=== PATIENT | male | born 1955 | race Two or more races ===

== ENCOUNTER 2024-01-13 06:13 | Outpatient (REF) | payer MEDICARE, MEDICAID, SELFPAY ==
--- NOTE | ~2024-01-13 | XR_ITS ---
EXAMINATION: XR CHEST CLINICAL INFORMATION: Chest pain. Essential hypertension. COMPARISON: None available. TECHNIQUE: 2 views of the chest were obtained. FINDINGS: Mild asymmetric elevation of the right hemidiaphragm. No focal consolidation. Mild central vascular congestion without overt edema. No pleural effusions or pneumothorax. The cardiomediastinal silhouette is within normal limits. No acute osseous abnormality. Degenerative changes of thoracic spine. XR/XR chest 2V IMPRESSION: No focal consolidation.
--- NOTE | 2024-01-13 06:28 | ECG_ITS ---
Test Reason : cp Blood Pressure : / mmHG Vent. Rate : 073 BPM Atrial Rate : 073 BPM P-R Int : 140 ms QRS Dur : 088 ms QT Int : 402 ms P-R-T Axes : -20 009 036 degrees QTc Int : 442 ms Normal sinus rhythm Normal ECG No previous ECGs available Referred By: Bryant Orlando Electronically Signed By:TORIN ARCHER
[2024-01-13 06:41] LABS: MANUAL DIFF FLAG NO
[2024-01-13 06:53] LABS: Basophils Percent Auto 0.5 % (0-2); Eosinophils Absolute Auto 0.2 X10*3/uL (0.0-0.4); Eosinophils Percent Auto 3.7 % (0-4); Hematocrit 44.2 % (42.0-52.0); Imm Gran Abs Auto 0.02 X10*3/uL (0.00-0.03); Imm Gran Pct Auto 0.3 % (0.0-0.4); Lymphocytes Absolute Auto 2.2 X10*3/uL (1.2-4.9); Lymphocytes Percent Auto 35.6 % (20-40); Mean Corpuscular HGB Conc 33.9 g/dl (31.0-36.0); Mean Corpuscular Hemoglobin 30.1 pg (27.0-33.0); Mean Corpuscular Volume 88.8 fL (80.0-98.0); Mean Platelet Volume 9.6 fL (9.4-12.4); Monocytes Absolute Auto 0.9 X10*3/uL (0.1-1.2); Monocytes Percent Auto 13.7 % (2-11); Neutrophils Absolute Auto 2.9 x10*3/uL (2.0-8.3); Neutrophils Percent Auto 46.2 % (45-73); Platelet Count 156 X10*3/uL (160-400); Red Blood Count 4.98 X10*6/uL (4.60-5.80); Red Cell Distribution Width 13.4 % (11.0-16.0); White Blood Count 6.3 X10*3/uL (4.8-10.8)
[2024-01-13 07:18] LABS: Alanine Aminotransferase 21 U/L (0-40); Albumin Level 4.2 g/dL (3.5-5.0); Alkaline Phosphatase 73 U/L (39-117); Anion Gap 15 (12-20); Aspartate Amino Transferase 27 U/L (5-37); Bilirubin Total 0.8 mg/dL (0.0-1.0); Blood Urea Nitrogen 12 mg/dL (9-16); Calcium 9.3 mg/dL (8.4-10.2); Carbon Dioxide 27 mmol/L (22-29); Chloride 101 mmol/L (96-108); Cholesterol 135 mg/dL (<200); Estimated Glomerular Filt Rate > 60; Glucose Fasting 115 mg/dL (60-99); HDL Cholesterol 37 mg/dL (>40); LDL Cholesterol Calculated 70 mg/dL (<100); Sodium 139 mmol/L (135-145); Total Protein 7.7 g/dL (6.5-8.0); Triglycerides 144 mg/dL (<150)
[2024-01-13 07:41] LABS: HBc Num1 3.26 S/CO (0.00-0.79); HBsAGNum1 0.34 S/CO (0.00-0.99); HIV AB/AG Nonreactive (Nonreactive); HIV Num 1 0.05 S/CO (0.00-0.99); Hepatitis A Antibody IgM 0.16 Index (0-0.79); Hepatitis B Surface Antigen Negative (Negative); ~HepC Num1 14.81 S/CO (0.00-0.79); ~Hepatitis A Antibody IgM Nonreactive (Nonreactive); ~Hepatitis B Surface Antibody REACTIVE (Nonreactive); ~Hepatitis C Antibody Reactive (Nonreactive)
[2024-01-13 08:24] LABS: HBc Num2 3.25 S/CO; HBc Num3 3.25 S/CO; Hepatitis B Core Antibody Reactive (Nonreactive)
[2024-01-13 08:36] LABS: Appearance Urine Clear; Color Urine Yellow; Glucose Urine UA Negative (Negative); Leukocyte Esterase Urine Moderate (2+) (Negative); Nitrite Urine Negative (Negative); Specific Gravity - Urine 1.015 (1.005-1.025); UMIC TRIGGER UA YES; Urine Blood Negative (Negative); Urine Ketones Negative (Negative); Urine Protein Negative (Neg-Trace)
[2024-01-13 08:58] LABS: Bacteria Urine None Seen (None Seen); Hyaline Casts Urine 0-2 /LPF (0-2); RBC Urine 0-2 /HPF (0-2); Squamous Epithelial Cell Urine 0-2 /HPF (0-2); WBC Urine 0-5 /HPF (0-5)
[2024-01-17 12:08] LABS: Alpha Fetoprotein 6.3 ng/mL (<6.1)
== END 2024-01-13 06:14 | disposition home or self-care (01) ==
LOC: HO.XRAY 06:13
PROVIDERS: PCP Internal Medicine Medical Oncology; Visit Provider Internal Medicine Medical Oncology
DX: I85.00 Esophageal varices without bleeding (principal); K74.60 Unspecified cirrhosis of liver; B19.20 Unspecified viral hepatitis C without hepatic coma; E78.00 Pure hypercholesterolemia, unspecified
CPT/HCPCS: 36415; 71046; 80053; 80061; 81001; 82105; 85025; 86704; 86706; 86709; 86803; 87340; 87389; 93005

== ENCOUNTER → 2024-01-13 06:28 | Outpatient (BNV) | payer MEDICARE, MEDICAID, SELFPAY | PROVIDERS: PCP Internal Medicine Medical Oncology; Visit Provider Internal Medicine | DX: R07.9 Chest pain, unspecified (principal) | CPT/HCPCS: 93010 ==

== ENCOUNTER 2024-05-11 07:05 | Outpatient (REF) | payer MEDICARE, MEDICAID, SELFPAY ==
[2024-05-11 07:24] LABS: MANUAL DIFF FLAG NO
[2024-05-11 07:32] LABS: Basophils Percent Auto 0.6 % (0-2); Eosinophils Absolute Auto 0.3 X10*3/uL (0.0-0.4); Eosinophils Percent Auto 4.7 % (0-4); Hematocrit 44.7 % (42.0-52.0); Hemoglobin 14.8 g/dl (14.0-18.0); Imm Gran Abs Auto 0.02 X10*3/uL (0.00-0.03); Imm Gran Pct Auto 0.3 % (0.0-0.4); Lymphocytes Percent Auto 28.6 % (20-40); Mean Corpuscular HGB Conc 33.1 g/dl (31.0-36.0); Mean Corpuscular Hemoglobin 29.4 pg (27.0-33.0); Mean Corpuscular Volume 88.7 fL (80.0-98.0); Mean Platelet Volume 9.8 fL (9.4-12.4); Monocytes Absolute Auto 0.8 X10*3/uL (0.1-1.2); Monocytes Percent Auto 11.8 % (2-11); Neutrophils Absolute Auto 3.7 x10*3/uL (2.0-8.3); Platelet Count 171 X10*3/uL (160-400); Red Blood Count 5.04 X10*6/uL (4.60-5.80); Red Cell Distribution Width 13.3 % (11.0-16.0); White Blood Count 6.9 X10*3/uL (4.8-10.8)
[2024-05-11 08:11] LABS: Alanine Aminotransferase 57 U/L (0-40); Albumin Level 4.1 g/dL (3.5-5.0); Alkaline Phosphatase 75 U/L (39-117); Anion Gap 9 (12-20); Aspartate Amino Transferase 45 U/L (5-37); Bilirubin Total 0.6 mg/dL (0.0-1.0); Blood Urea Nitrogen 15 mg/dL (9-16); Calcium 9.6 mg/dL (8.4-10.2); Carbon Dioxide 31 mmol/L (22-29); Chloride 103 mmol/L (96-108); Cholesterol 145 mg/dL (<200); Estimated Glomerular Filt Rate > 60; Glucose Fasting 117 mg/dL (60-99); HDL Cholesterol 30 mg/dL (>40); LDL Cholesterol Calculated 74 mg/dL (<100); Potassium 4.3 mmol/L (3.3-5.1); Sodium 139 mmol/L (135-145); Total Protein 7.7 g/dL (6.5-8.0); Triglycerides 209 mg/dL (<150)
== END 2024-05-11 07:06 | disposition home or self-care (01) ==
LOC: HO.LAB 07:05
PROVIDERS: PCP Internal Medicine Medical Oncology; Visit Provider Internal Medicine Medical Oncology
DX: I10 Essential (primary) hypertension (principal); E78.2 Mixed hyperlipidemia; E66.9 Obesity, unspecified; M75.02 Adhesive capsulitis of left shoulder
CPT/HCPCS: 36415; 80053; 80061; 85025

== ENCOUNTER 2024-06-07 15:01 | Outpatient (REF) | payer MEDICARE, MEDICAID, SELFPAY | END 2024-06-07 15:02 | disposition home or self-care (01) | LOC: HO.XRAY 15:01 | PROVIDERS: PCP Internal Medicine Medical Oncology; Visit Provider Internal Medicine Medical Oncology | DX: M54.50 Low back pain, unspecified (principal); M54.6 Pain in thoracic spine | CPT/HCPCS: 72072; 72110 ==

== ENCOUNTER → 2024-06-07 15:06 | Outpatient (BNV) | payer MEDICARE, MEDICAID, SELFPAY | PROVIDERS: PCP Internal Medicine Medical Oncology; Visit Provider Radiology Diagnostic Radiology | DX: M54.50 Low back pain, unspecified (principal) | CPT/HCPCS: 72072; 72110 ==

== ENCOUNTER → 2024-11-28 11:30 | Outpatient (REF) | payer MEDICARE, MEDICAID, SELFPAY ==
--- NOTE | ~2024-11-28 | XR_ITS ---
CLINICAL HISTORY: lumbar back pain 3 views lumbar spine Comparison: None Findings: No acute compression fracture of the 5 lumbar type vertebrae. Trace retrolisthesis of the L1-L2 and trace anterolisthesis at L5-S1. Degenerative disc changes with disc height losses endplate sclerosis by radiographs. Facet arthropathy is multifocal most pronounced in the mid and lower lumbar spine. L4 and L5 pars are partly obscured without definite lysis. Degenerative changes include partially imaged hips and partially imaged SI joints. Sacrum is mostly obscured. IMPRESSION: 1. Degenerative changes include multifocal facet arthropathy by radiographs. 2. No acute compression fracture of the 5 lumbar vertebrae. This document has been electronically signed by: Jaime Ramirez MD on 11/28/2024 20:12:50
--- NOTE | ~2024-11-28 | XR_ITS ---
CLINICAL HISTORY: bilat. hip pain 4 view, pelvis and bilateral hips Comparison: None Findings: Moderate osteoarthritis of the right hip. [id number] osteoarthritis of the left hip. Mild deformities of the imaged femurs appear old/chronic including flattening of the left femoral head. Portions of the pelvis obscured without definite acute displaced fracture. Moderate stool burden in the [id number]-[id number]. IMPRESSION: Osteoarthritis of the both hips, left worse than right. This document has been electronically signed by: Jaime Ramirez MD on 11/28/2024 20:15:18
--- NOTE | ~2024-11-28 | XR_ITS ---
CLINICAL HISTORY: PAIN 3 views sacrum and coccyx Comparison: X-rays of the lumbar spine from 11/28/2024. Findings Sacrococcygeal junction angulation appears old/chronic with sclerosis and not further characterize by radiographs. Degenerative changes include imaged SI joints of the imaged hips. Vascular calcifications are multifocal. IMPRESSION: Degenerative changes include imaged SI joints of the imaged hips. This document has been electronically signed by: Jaime Ramirez MD on 11/28/2024 20:13:38
--- NOTE | 2024-11-28 12:04 | ECG_ITS ---
Test Reason : cad Blood Pressure : */* mmHG Vent. Rate : 64 BPM Atrial Rate : 64 BPM P-R Int : 146 ms QRS Dur : 84 ms QT Int : 414 ms P-R-T Axes : -12 33 34 degrees QTcB Int : 427 ms Normal sinus rhythm Normal ECG When compared with ECG of 13-Jan-2024 06:30, No significant change was found Referred By: Bryant Orlando Electronically Signed By: MAGALIS SILVA MD
--- OUTSIDE RECORDS SUMMARY | 2024-11-28 13:53 | XMS_ITS ---
Author Organization Bryant Orlando III, MD Address [address] [place] [address] Care Team Providers Care Tire Curer Name Role Phone Bryant Orlando Primary Care Provider Allergies Allergen (clinical drug ingredient) Drug/Non Drug Allergy documented on EMR Reaction Allergy Type Onset Date Status No Known Drug Allergy Unknown Drug Allergy Active REASON FOR VISIT Follow up, Fly got in left eye. Eye is now red. Medications Medication SIG (Take, Route, Frequency, Duration) [...] 11/28/2024 Encounters Encounter Location Date Provider Diagnosis rByant Orlando III, MD [address] [place] [address] [place] [address] 11/28/2024 Bryant Orlando Coronary artery disease involving [place] coronary artery of [place] heart without angina pectoris I25.10 ; Chest pain R07.9 ; Lumbar back pain M54.50 ; Hip pain, right M25.551 and Pain in left hip M25.552 Assessments Encounter Date Diagnosis (ICD Code) Assessment Notes Treatment Notes Treatment Clinical Notes 11/28/2024 Coronary artery disease involving [place] coronary artery of [place] heart without angina pectoris (ICD-10 - I25.10) 11/28/2024 Chest pain (ICD-10 - R07.9) 11/28/2024 Lumbar back pain (ICD-10 - M54.50) 11/28/2024 Hip pain, right (ICD-10 - M25.551) 11/28/2024 Pain in left hip (ICD-10 - M25.552) Plan Of Treatment Medication Medication Name Sig [...] 4 Weeks, Reason: OV Provider Name:Bryant Orlando, 12/26/2024 10:45:00 AM, [address] [place] [address] [address], [place], [address], Provider Name:Bryant Orlando, 01/17/2025 02:30:00 PM, [address] [place] [address] [place] [place], [place], [address], Progress Notes * Romeo ELDRIDGEDOB:1955 (69 yo M)Acc No.[id number]:11/28/2024 Progress Notes Patient:?Romeo ELDRIDGE Provider:?Bryant Orlando MD :1955???Age:69 Y???Sex:Male Nhan e:11/28/2024 Address:[address] [place], [place] [address] Subjective: * Chief Complaints: * ???1. Follow up. 2. Fly got in left eye. Eye is now red.. * HPI: ???COVID-19 Screening:?2 days very red, subconjunct hem, ? valve leak, had card in [place],? bilat buttock pain with pos straight leg. ?Questions?Have you had any new onset fever, chills, cough, congestion, sore throat, shortness of breath, muscle aches??No * ROS:?General/Constitutional:?pain?only normal aches and pains.?Chills?denies.?Fatigue?admits.?Fever?denies.?ENT:?Decreased hearing?denies.?Respiratory:?Cough?denies.?Cardiovascular:?Chest pain with exertion?denies.?Dyspnea on exertion?denies.?Shortness of breath?denies.?Gastrointestinal:?Constipation?denies.?Decreased appetite?denies.?Diarrhea?denies.?Heartburn?denies.?Nausea?denies.?Rectal bleeding?denies.?Vomiting?denies.?Hematology:?bruising?denies.?petechiae?denies.?Swollen glands?none have been noted.?Genitourinary:?Frequent urination?denies.?Musculoskeletal:?Muscle aches?denies.?Painful joints?denies.?Sciatica?denies.?Weakness?denies.?Skin:?Itching?denies.?Rash?denies.?Skin lesion(s)?denies.?Neurologic:?Difficulty speaking?denies.?Dizziness?denies.?Headache?denies.?Low back pain?denies.?Psychiatric:?Depressed mood?denies.? * Medical History:?Edentulous, Constipation, Hyperlipidemia, Obesity, Adhesive capsulitis left shoulder 2022, Venous stasis lower extremities, Left second rib deformity, History of hepatitis C, History of unstable angina, Hearing loss, History of substance use disorder, Methadone maintenance, Esophageal varices, Colonoscopy 2022, Former smoker 2007, History of hypertension, {'Cholesterol': '145 (Normal)', 'Blood Sugar': '117 (Normal)', 'Kidney Function': 'Normal', 'Liver Function': 'Normal'}. * Surgical History:?Negative u pper endoscopy in [facility] 2022, Attempted colonoscopy, preparation inadequate 2022, No history . * Hospitalization/Major Diagno stic Procedure:?No history . * Family History:?Father: dece ased.?Mother: , liver disease, diagnosed with CVD, HTN.?Siblings: alive.?1 brother(s) , 1 sister(s) . .? His brother has coronary artery disease. He has a history of heroin addiction. He is not aware of any other family history of addiction or mental illness. * Social History:?Tobacco Use:?Tobacco Use/Smoking?Patient is a?former smoker ???He was born in [facility]. 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 He has no amish objection to blood transfusion. He has no children. He is not currently working. He is involved in a methadone maintenance program in [facility]. {'Living Situation': 'Lives with [place]', 'Work Status': 'Retired'}. * Medications:?Taking Gabapent in 300 MG Capsule 1 capsule Orally three times a day , Taking Lisinopril 2.5 MG Tablet 1 tablet [...] 1 capsule Orally Once a day , Medication List reviewed and reconciled with the patient * Allergies:?No Known Drug All ergy. Objective: * Vitals:?Ht: 62.5, Wt:207, BM I:37.25, BP:138/76, HR:69, Temp:97.0, Ht-cm: 158.75, Wt-k.89. * Examination: ???General Examination: ?GENERAL APPEARANCE:?pleasant, well nourished, well developed, in no acute distress, calm and relaxed.?HEAD:?atraumatic, normocephalic.?EYES:?eomi, perrla, anicteric, conjugate.?EARS:?normal.?NOSE:?septum intact.?ORAL CAVITY:?normal, unremarkable.?NECK/THYROID:?no jugular venous distention, no carotid bruit, thyroid normal.?LYMPH NODES:?no enlarged lymph nodes,spleen normal.?SKIN:?no suspicious lesions, anicteric.?HEART:?no clicks, gallops, murmurs, or rubs, regular rhythm, S1, S2 normal, no s3, or vascular bruits.?LUNGS:?clear to auscultation .?BREASTS:??no masses palpable bilaterally.?ABDOMEN:?bowel sounds normal, no ascites, no organomegaly, no mass.?RECTAL EXAM:?not examined.?MUSCULOSKELETAL:?extremities unremarkable, no clubbing, cyanosis or edema.?PERIPHERAL PULSES:?normal.?NEUROLOGIC:?alert and oriented, cranial nerves 2-12 grossly intact, deep tendon reflexes 2+ symmetrical, motor strength normal upper and lower extremities, sensory exam intact.?PSYCH:?alert, oriented.? Assessment: * Assessment: 1.?Coronary artery disease i nvolving [place] coronary artery of [place] heart without angina pectoris - I25.10???2.?Chest pain - R07.9???3.?Lumbar back pain - M54.50???4.?Hip pain, right - M25.551???5.?Pain in left hip - M25.552??? Plan: * Treatment: 2.?Chest pain?Imaging: Echocardiogram ?Imaging: Stress Test ?Imaging: ECG 12 lead EKG 3.?Lumbar back pain?Imaging: XR hips NIA min 3V ?Imaging: XR lumbar spine 2-3V ?Imaging: XR sacrum coccyx min 2V 4.?Hip pain, right?Imaging: XR hips NIA min 3V ?Imaging: XR lumbar spine 2-3V ?Imaging: XR sacrum coccyx min 2V 5.?Pain in left hip?Imaging: XR hips NIA min 3V ?Imaging: XR lumbar spine 2-3V ?Imaging: XR sacrum coccyx min 2V 6.?Others? Continue Gabapentin Capsule, 300 MG, 1 capsule, Orally, three times a day;?Continue Lisinopril Tablet, 2.5 MG, 1 tablet, Orally, Once a day;?Continue Aspirin 81 Tablet Delayed Release, 81 MG, 1 tablet, Orally, Once a day;?Continue Metoprolol Succinate ER Tablet Extended Release 24 Hour, 25 MG, 1 tablet, Orally, Once a day;?Continue dexAMETHasone Tablet, 2 MG, 1 tablet, Orally, twice a day;?Continue Omeprazole Capsule Delayed Release, 20 MG, 1 capsule, Orally, Once a day.?? * Preventive Medicine:? ??Counseling:?Care goal follow-up plan:?Counseling for abnormal BMI given?Yes ?Above Normal BMI Follow-up?Dietary management education, guidance, and counseling, Dietary needs education, Exercise promotion: strength training, Exercise promotion: stretching, Feeding regime, Giving encouragement to exercise, Lifestyle education regarding diet, Nutrition / feeding management, Nutrition therapy, Prescribed activity/exercise education, Prescribed diet education, Prescribed dietary intake, Special diet education, Weight monitoring , Intervention, Order not done: Medical or Other reason not done * Follow Up:?4 Weeks (Reason: OV) * Images: * The named appointment provid er may or may not be the originator of this progress note, and it is not deemed complete until electronically signed by the appointment provider. Sign off status: Pending * Provider:?Bryant Orlando MD Date:?11/19 Generated for Sid moser/Sonal/eTransmitting on:?11/28/2024 01:53 PM EDT History and Physical Notes * [...]
== END ==
LOC: HO.CARD 11:30
PROVIDERS: PCP Internal Medicine Medical Oncology; Visit Provider Internal Medicine Medical Oncology
DX: I25.10 Atherosclerotic heart disease of native coronary artery without angina pectoris (principal); M54.50 Low back pain, unspecified; M25.551 Pain in right hip; M25.552 Pain in left hip; R07.9 Chest pain, unspecified
CPT/HCPCS: 72100; 72220; 73522; 93005

== ENCOUNTER → 2024-11-28 11:45 | Outpatient (BNV) | payer MEDICARE, MEDICAID, SELFPAY | PROVIDERS: PCP Internal Medicine Medical Oncology; Visit Provider Radiology Neuroradiology | DX: M16.0 Bilateral primary osteoarthritis of hip (principal); M51.360 Other intervertebral disc degeneration, lumbar region with discogenic back pain only | CPT/HCPCS: 72100; 72220; 73522 ==

== ENCOUNTER → 2024-11-28 12:04 | Outpatient (BNV) | payer MEDICARE, MEDICAID, SELFPAY | PROVIDERS: PCP Internal Medicine Medical Oncology; Visit Provider Internal Medicine Cardiovascular Disease | DX: I25.10 Atherosclerotic heart disease of native coronary artery without angina pectoris (principal) | CPT/HCPCS: 93010 ==

== ENCOUNTER → 2024-12-29 14:20 | Outpatient (REF) | payer MEDICARE, MEDICAID, SELFPAY ==
--- OUTSIDE RECORDS SUMMARY | 2024-11-28 07:00 | XMS_ITS ---
Author Organization Bryant Orlando III, MD Address [address] [facility] [place] [address] Care Team Providers Care Electric Meter Tester Shop Name Role Phone Bryant Orlando Primary Care Provider Allergies Allergen (clinical drug ingredient) Drug/Non Drug Allergy documented on EMR Reaction Allergy Type Onset Date Status No Known Drug Allergy Unknown Drug Allergy Active Results Component Value Reference Range Notes XR hips NIA min 3V (Not yet reviewed by provider) Interpretation: Performing Lab: Notes/Report: [address] [address] XRay Report Signed Patient: Romeo Eldridge MR#: [id number] : 1955 Acct:[id number] Age/Sex: 69 / M ADM Date: 11/28/24 Loc: HO.CARD Attending Dr: Bryant Orlando MD Ordering Physician: Bryant Orlando MD Date of Service: 11/28/24 Procedure(s): XR hips NIA min 3V Accession Number(s): [id number] cc: Bryant Orlando MD CLINICAL HISTORY: bilat. hip pain 4 view, pelvis and bilateral hips Comparison: None Findings: Moderate osteoarthritis of the right hip. Ispytzcz-xg-sjdbpo osteoarthritis of the left hip. Mild deformities of the imaged femurs appear old/chronic including flattening of the left femoral head. Portions of the pelvis obscured without definite acute displaced fracture. Moderate stool burden in the lnlbk-ab-fqbi. IMPRESSION: Osteoarthritis of the both hips, left worse than right. This document has been electronically signed by: Jaime Ramirez MD on 11/28/2024 20:15:18 Dictated By: Jaime Ramirez MD Signed By: <Electronically signed by Jaime Ramirez MD in OV> 11/28/242014 DD/ 14 TD/TT: 11/28/242014 Animal Care Provider: [address] [address] XRay Report Signed Patient: Romeo Eldridge R#: [id number] : 1955 Acct:[id number] Age/Sex: 69 / M ADM Date: 11/28/24 Loc: HO.CARD Attending Dr: Bryant Orlando MD Ordering Physician: Bryant Orlando MD Date of Service: 11/28/24 Procedure(s): XR hip s NIA min 3V Accession Number(s): [id number] cc: Bryant Orlando MD CLINICAL HISTORY: bi lat. hip pain 4 view, pelvis and b ilateral hips Comparison: None Findings: Moderate osteoarthri tis of the right hip. Bqlsmrsl-oh-bjnjcq osteoarthritis of th e left hip. Mild deformities of the imaged femurs appear old/chronic i ncluding flattening of the left femoral head. Portions of the pelvis obscur ed without definite acute displaced fracture. Moderate stool burde n in the nxfmy-df-ofgg. IMPRESSION: Osteoarthritis of th e both hips, left worse than right. This document has be en electronically signed by: Jaime Ramirez MD on 11/28/2024 20:15:18 Dictated By: Jaime Ramirez MD Signed By: <Electron ically signed by Jaime Ramirez MD in OV> 11/28/242014 DD/ 14 TD/TT: 11/28/242014 Animal Care Provider: XR lumbar spine 2-3V (Not ye t reviewed by provider) Interpretation: Performing Lab: Notes/Report: [address] [address] XRay Report Signed Patient: Romeo Eldridge MR#: [id number] : 1955 Acct:[id number] Age/Sex: 69 / M ADM Date: 11/28/24 Loc: HO.CARD Attending Dr: Bryant Orlando MD Ordering Physician: Bryant Orlando MD Date of Service: 11/28/24 Procedure(s): XR lumbar spine 2-3V Accession Number(s): [id number] cc: Bryant Orlando MD CLINICAL HISTORY: lumbar [...] in OV> 11/28/242012 DD/ 11 TD/TT: 11/28/242011 Animal Care Provider: [place] [address] XRay Report Signed Patient: Romeo Eldridge MR#: [id number] : 1955 Acct:[id number] Age/Sex: 69 / M ADM Date: 11/28/24 Loc: HO.CARD Attending Dr: Bryant Orlando MD Ordering Physician: Bryant Orlando MD Date of Service: 11/28/24 Procedure(s): XR lum bar spine 2-3V Accession Number(s): [id number] cc: Bryant Orlando MD CLINICAL HISTORY: joyce [...] Dictated By: Jaime Ramirez MD Signed By: <Electro nically signed by Jaime Ramirez MD in OV> 11/28/242012 DD/ 11 TD/TT: 11/28/242011 Animal Care Provider: XR sacrum coccyx min 2V (Not yet reviewed by provider) Interpretation: Performing Lab: Notes/Report: [address] [address] XRay Report Signed Patient: Romeo Eldridge MR#: [id number] : 1955 Acct:[id number] Age/Sex: 69 / M ADM Date: 11/28/24 Loc: [place] Attending Dr: Bryant Orlando MD Ordering Physician: Bryant Orlando MD Date of Service: 11/28/24 Procedure(s): XR sacrum coccyx min 2V Accession Number(s): [id number] cc: Bryant Orlando MD CLINICAL HISTORY: PAIN [...] in OV> 11/28/242013 DD/ 12 TD/TT: 11/28/242012 Animal Care Provider: [address] [address] XRay Report Signed Patient: Romeo Eldridge R#: [id number] : 1955 Acct:[id number] Age/Sex: 69 / M ADM Date: 11/28/24 Loc: [place] Attending Dr: Bryant Orlando MD Ordering Physician: Bryant Orlando MD Date of Service: 11/28/24 Procedure(s): XR sac rum coccyx min 2V Accession Number(s): [id number] cc: Bryant Orlando MD CLINICAL HISTORY: PAIN [...] in OV> 11/28/242013 DD/ 12 TD/TT: 11/28/242012 Animal Care Provider: REASON FOR VISIT My left eye is [...] Answer Notes Patient is a former smoker Problems Problem Type SNOMED Code ICD Code Onset Dates Problem Status W/U Status Risk Notes Problem [id number] Subconjunctival hemorrhage of left eye (H11.32) Active confirmed This is completely resolved Vital Signs Temperature 97.0 degrees Fahrenheit 11/29/19 25 Blood pressure systolic 138 mm Hg 11/29/19 25 Blood pressure diastolic 76 mm Hg 025 Heart Rate 69 /min 11/28/2024 Height 62.5 in 11/28/2024 Weight 207 lbs 11/28/2024 BMI 37.25 kg/m2 11/28/2024 Encounters Encounter Location Date Provider Diagnosis Bryant Orlando III, MD [address] [place] [address] DR ABREU, DAVID [address] 11/28/2024 Bryant Orlando Subconjunctival hemorrhage of left eye H11.32 ; Essential hypertension I10 ; Hearing loss, bilateral H91.93 ; Edentulous K08.109 ; Mixed hyperlipidemia E78.2 ; Obesity (BMI 30-39.9) E66.9 ; Venous stasis I87.8 ; 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 11/28/2024 Coronary artery disease involving [place] coronary artery of [place] heart without angina pectoris (ICD-10 - I25.10) [...] Up: 4 Weeks, Reason: OV Provider Name:Bryant Orlando, 01/17/2025 02:30:00 PM, [address] [place] [address] DR [facility] [place], [place], [address], Progress Notes * Loreto ELDRIDGE:1955 (69 yo M)Acc No.[id number]:11/28/2024 Progress Notes Patient: Romeo MEJIA Provider: Neida Orlando MD :1955 A ge:69 Y S ex:Male Date:11/28/2024 Address:[address] [place], [place] [address]Nik[id number] Subjective: * Chief Complaints: * M y [...] he had a leaky valve show a circulator in [place]. An echocardiogram will be done to evaluate [...] Surgical History: N egative upper endoscopy in [facility] ttempted colonoscopy, preparation inadequate 2022No history [...] T obacco Use/Smoking P pierre is a [facility] smoker H e was born in [facility]. 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 He has no scientologist objection to blood transfusion. He has no children. He is not currently working. 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 {'Living Situation': 'Lives with [place]', 'Work Status': 'Retired'}. * Medications: T akingGabapentin [...] 9 . C oronary artery disease involving [place] coronary artery of [place] heart without angina pectoris - I25.10 N [...] Orlando MD Date: 0 11/28/2024 Generated for Sid moser/Sonal/eTransmitting on: 0 12/29/2024 02:24 PM EDT History and Physical Notes * HPI [...]
--- NOTE | 2024-12-29 14:43 | CA_ITS ---
Transthoracic Echocardiogram Patient (Last, First, Middle): Romeo Eldridge, Gender: Male Date of : 1955 Age: 69 Procedure Date: 12/29/2024 Procedure Type: Transthoracic Echocardiogram Location: OP Height: 162. cm Weight: 94.8 kg BSA: 1.99 m2 Heart Rate: 82 bpm BP: 172 / 90 mmHg Sandblasting Supervisor: YAA Referring MD: Bryant Orlando MD Symptoms: CAD , CHEST PAIN Study Quality: Adequate w/Contrast ECG Rhythm: Sinus Conclusions: - Normal left ventricular size and systolic function. There is mildly increased left ventricular wall thickness. The visually estimated ejection fraction is between 60-65%. - E/E prime ratio is between 8 and 15 consistent with indeterminate filling pressures. - The mid anteroseptal segment is hypokinetic. - Normal right ventricular cavity size and systolic function. Findings Procedure Information Contrast agent, definity, is being given per protocol without apparent complications. Left Ventricle Normal left ventricular size and systolic function. There is mildly increased left ventricular wall thickness. The visually estimated ejection fraction is between 60-65%. There is evidence of regional wall motion abnormalities. Abnormal diastolic function is noted. Spectral Doppler is indicative of an impaired relaxation filling pattern. E/E prime ratio is between 8 and 15 consistent with indeterminate filling pressures. Wall Motion Rest Echo Findings The mid anteroseptal segment is hypokinetic. Right Ventricle Normal right ventricular cavity size and systolic function. Atria Both atria are normal in size. Aortic Valve Normal aortic valve structure and function. There is no aortic valve stenosis. There is no aortic valve regurgitation. Mitral Valve The mitral valve appears normal. There is no mitral valve regurgitation. There is no mitral valve stenosis. Pulmonic Valve The pulmonic valve is likely normal. Tricuspid Valve Normal tricuspid valve structure and function. There is no tricuspid valve regurgitation. Tricuspid regurgitation envelope is inadequate for calculation of right ventricular systolic pressure. Normal right atrial pressure. Great Vessels All visible segments of the aorta are normal in size. The visualized portions of the pulmonary artery and branches are normal. Venous The inferior vena cava is normal in size and collapses greater than 50% with inspiration. Pericardium/Pleural There is no evidence of pericardial effusion. Prior Study Comparison No prior study available for comparison. Measurements 2D Linear Measurements IVSd: 1.08 0.6-0.9/0.6-1.0 cm LVIDd: 3.99 3.9-5.3/4.2-5.9 cm LVIDd Index: 2.01 2.4-3.2/2.2-3.1 cm/m2 LVIDs: 1.90 2.0-3.6 cm LVPWd: 1.21 0.7-1.1 cm LA Diam: 3.50 2.7-3.8/3.0-4.0 cm LAIDs Index: 1.76 1.5-2.3 cm/m2 LV Mass: 191.52 67-162/88-224 g LV Mass Index: 96.24 43-95/49-115 g/m2 LVOT Diam: 1.90 3.0+(-)1.3 cm 2D Systolic Function EF 4C: 65.30 >55% EF 2C: 78.20 >55% EF BiP: 70.70 >55% Mitral Valve MV Pk E: 0.75 MV PK A: 1.00 MV Decel Time: 294.00 E/A: 0.80 E'Lateral: 6.85 E'Medial: 5.55 E/E' Med: 13.50 E/E' Lat: 10.90 PHT: 86.00 MVA PHT: 2.56 Decel [place]: 2.55 Aortic Valve AoV Pk Jamal: 1.45 AoV Mn Jamal: 1.08 AoV VTI: 0.29 AoV Pk Grad: 8.00 Aov Mn Grad: 5.00 LISA Cont.VTI: 2.34 LVOT LVOT Pk Jamal: 1.27 LVOT Mn Jamal: 0.90 LVOT VTI: 0.24 LVOT Pk Grad: 6.00 LVOT Mn Grad: 4.00 LVOT Diam: 1.90 LVOT Area: 2.84 Diastolic Function MV Pk E: 0.75 MV Pk A: 1.00 E/A: 0.80 E'Medial: 5.55 E/E' Med: 13.50 E' Laterial: 6.85 E/E' Lat: 10.90 Right Ventricle TAPSE (mm): 24.40 TVS' Jamal: 13.10 Great Vessels Aorta Sinus of Valsalva: 3.30 2.0-3.5 cm Ao Asc: 3.30 2.1-3.4 cm Ao Arch: 3.10 Pulmonary Valve PV Pk Jamal: 1.13 Peak PV Grad: 5.00 Updated in Other Vendor System with Status of Final Bashir Patel MD electronically signed on 12/31/2024 9:14:16 PM with status of Final
== END ==
LOC: HO.CARD 14:20
PROVIDERS: PCP Internal Medicine Medical Oncology; Visit Provider Internal Medicine Medical Oncology
DX: I25.10 Atherosclerotic heart disease of native coronary artery without angina pectoris (principal); R07.9 Chest pain, unspecified
CPT/HCPCS: 93306; Q9957

== ENCOUNTER → 2024-12-29 14:43 | Outpatient (BNV) | payer MEDICARE, MEDICAID, SELFPAY | PROVIDERS: PCP Internal Medicine Medical Oncology; Visit Provider Internal Medicine Cardiovascular Disease | DX: I51.89 Other ill-defined heart diseases (principal) | CPT/HCPCS: 93306 ==

== ENCOUNTER 2025-01-11 07:51 | Outpatient (REF) | payer MEDICARE, MEDICAID, SELFPAY ==
--- OUTSIDE RECORDS SUMMARY | 2024-11-28 07:00 | XMS_ITS ---
Author Organization Bryant Orlando III, MD Address [address] [facility] [place] [address] Care Team Providers Care Licensed Physical Therapy Assistant Name Role Phone Bryant Orlando Primary Care Provider Allergies Allergen (clinical drug ingredient) Drug/Non Drug Allergy documented on EMR Reaction Allergy Type Onset Date Status No Known Drug Allergy Unknown Drug Allergy Active Results Component Value Reference Range Notes XR hips NIA min 3V (Not yet reviewed by provider) Interpretation: Performing Lab: Notes/Report: [address] [address] XRay Report Signed Patient: Romeo Eldridge MR#: [id number] : 1955 Acct:[id number] Age/Sex: 69 / M ADM Date: 11/28/24 Loc: HO.CARD Attending Dr: Bryant Orlando MD Ordering Physician: Bryant Orlando MD Date of Service: 11/28/24 Procedure(s): XR hips NIA min 3V Accession Number(s): [id number] cc: Bryant Orlando MD CLINICAL HISTORY: bilat. hip pain 4 view, pelvis and bilateral hips Comparison: None Findings: Moderate osteoarthritis of the right hip. Hejwddzz-by-epdige osteoarthritis of the left hip. Mild deformities of the imaged femurs appear old/chronic including flattening of the left femoral head. Portions of the pelvis obscured without definite acute displaced fracture. Moderate stool burden in the geghw-nx-mxsa. IMPRESSION: Osteoarthritis of the both hips, left worse than right. This document has been electronically signed by: Jaime Ramirez MD on 11/28/2024 20:15:18 Dictated By: Jaime Ramirez MD Signed By: <Electronically signed by Jaime Ramirez MD in OV> 11/28/242014 DD/ 14 TD/TT: 11/28/242014 Direct Service Provider: [address] [address] XRay Report Signed Patient: Romeo Eldridge R#: [id number] : 1955 Acct:[id number] Age/Sex: 69 / M ADM Date: 11/28/24 Loc: HO.CARD Attending Dr: Bryant Orlando MD Ordering Physician: Bryant Orlando MD Date of Service: 11/28/24 Procedure(s): XR hip s NIA min 3V Accession Number(s): [id number] cc: Bryant Orlando MD CLINICAL HISTORY: bi lat. hip pain 4 view, pelvis and b ilateral hips Comparison: None Findings: Moderate osteoarthri tis of the right hip. Idwzhmzs-yv-rpiubw osteoarthritis of th e left hip. Mild deformities of the imaged femurs appear old/chronic i ncluding flattening of the left femoral head. Portions of the pelvis obscur ed without definite acute displaced fracture. Moderate stool burde n in the gywpa-ho-wrng. IMPRESSION: Osteoarthritis of th e both hips, left worse than right. This document has be en electronically signed by: Jaime Ramirez MD on 11/28/2024 20:15:18 Dictated By: Jaime Ramirez MD Signed By: <Electron ically signed by Jaime Ramirez MD in OV> 11/28/242014 DD/ 14 TD/TT: 11/28/242014 Direct Service Provider: XR lumbar spine 2-3V (Not ye t reviewed by provider) Interpretation: Performing Lab: Notes/Report: [address] [address] XRay Report Signed Patient: Romeo Eldridge MR#: [id number] : 1955 Acct:[id number] Age/Sex: 69 / M ADM Date: 11/28/24 Loc: HO.CARD Attending Dr: Bryant Orlando MD Ordering Physician: Bryant Orlando MD Date of Service: 11/28/24 Procedure(s): XR lumbar spine 2-3V Accession Number(s): [id number] cc: Bryant Orlando MD CLINICAL HISTORY: lumbar [...] in OV> 11/28/242012 DD/ 11 TD/TT: 11/28/242011 Direct Service Provider: [place] [address] XRay Report Signed Patient: Romeo Eldridge MR#: [id number] : 1955 Acct:[id number] Age/Sex: 69 / M ADM Date: 11/28/24 Loc: HO.CARD Attending Dr: Bryant Orlando MD Ordering Physician: Bryant Orlando MD Date of Service: 11/28/24 Procedure(s): XR lum bar spine 2-3V Accession Number(s): [id number] cc: Bryant Orlando MD CLINICAL HISTORY: joyce [...] in OV> 11/28/242012 DD/ 11 TD/TT: 11/28/242011 Direct Service Provider: XR sacrum coccyx min 2V (Not yet reviewed by provider) Interpretation: Performing Lab: Notes/Report: [address] [address] XRay Report Signed Patient: Romeo Eldridge MR#: [id number] : 1955 Acct:[id number] Age/Sex: 69 / M ADM Date: 11/28/24 Loc: [place] Attending Dr: Bryant Orlando MD Ordering Physician: Bryant Orlando MD Date of Service: 11/28/24 Procedure(s): XR sacrum coccyx min 2V Accession Number(s): [id number] cc: Bryant Orlando MD CLINICAL HISTORY: PAIN [...] Ramirez MD on 11/28/2024 20:13:38 Dictated By: aJime Ramirez MD Signed By: <Electronically signed by Jaime Ramirez MD in OV> 11/28/242013 DD/ 12 TD/TT: 11/28/242012 Direct Service Provider: [address] [address] XRay Report Signed Patient: Romeo Eldridge R#: [id number] : 1955 Acct:[id number] Age/Sex: 69 / M ADM Date: 11/28/24 Loc: [place] Attending Dr: Bryant Orlando MD Ordering Physician: Bryant Orlando MD Date of Service: 11/28/24 Procedure(s): XR sac rum coccyx min 2V Accession Number(s): [id number] cc: Bryant Orlando MD CLINICAL HISTORY: PAIN [...] in OV> 11/28/242013 DD/ 12 TD/TT: 11/28/242012 Direct Service Provider: REASON FOR VISIT My left eye [...] Problem Status W/U Status Risk Notes Problem [id number] Subconjunctival hemorrhage of left eye (H11.32) Active confirmed This is completely resolved Vital Signs Temperature 97.0 degrees Fahrenheit 11/29/19 25 Blood pressure systolic 138 mm Hg 11/29/19 25 Blood pressure diastolic 76 mm Hg 025 Heart Rate 69 /min 11/28/2024 Height 62.5 in 11/28/2024 Weight 207 lbs 11/28/2024 BMI 37.25 kg/m2 11/28/2024 Encounters Encounter Location Date Provider Diagnosis Bryant Orlando III, MD [address] [place] [address] DR ABREU, DAVID [address] 11/28/2024 Bryant Orlando Subconjunctival hemorrhage of left eye H11.32 ; Essential hypertension I10 ; Hearing loss, bilateral H91.93 ; Edentulous K08.109 ; Mixed hyperlipidemia E78.2 ; Obesity (BMI 30-39.9) E66.9 ; Venous stasis I87.8 ; 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 An echocardiogram will be done to evaluate [...] Surgical History: N egative upper endoscopy in [facility] ttempted colonoscopy, preparation inadequate 2022No history * [...] obacco Use/Smoking P pierre is a [facility] smoker H e was born in [facility]. 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 He has no yarsani objection to blood transfusion. He has no children. He is not currently working. 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 {'Living Situation': 'Lives with [place]', 'Work Status': 'Retired'}. * Medications: T akingGabapentin [...] 9 . C oronary artery disease involving [place] coronary artery of [place] heart without angina pectoris - I25.10 N [...] 0 11/28/2024 Generated for Terelli shanti/Sonal/eTransmitting on: 0 01/11/2025 07:52 AM EDT History and Physical Notes * [...]
--- NOTE | ~2025-01-11 | MR_ITS ---
EXAMINATION: MR LUMBAR SPINE WITHOUT CONTRAST CLINICAL INFORMATION: Low back pain. COMPARISON: Correlated to x-ray dated November 28, 2024. TECHNIQUE: MRI of the lumbar spine was obtained using routine sequences without contrast. FINDINGS: Last rib-bearing vertebra labeled T12. No bone marrow STIR signal abnormality. Multilevel marginal osteophyte formation, disc desiccation and decreased intervertebral disc height from T10-11 to L5-S1. Multilevel Schmorl nodes. 1 mm retrolisthesis L1-2. Conus medullaris ends at pedicle of L1 with normal signal. Intrinsic hyperintense T1 bone marrow lesion at L1, T11 and T10 likely intraosseous hemangiomata. Hyperintense T1 bone marrow signal involving the sacrum and posterior iliac bone, bilaterally. T12-L1: No disc herniation. No neuroforamina stenosis. L1-2: Broad-based disc bulging. Facet joint hypertrophy. No central spinal canal stenosis. Bilateral neuroforamina narrowing. L2-3: Broad-based disc bulging. No central spinal canal stenosis. Bilateral neuroforamina narrowing. L3-4: Broad-based disc bulging. No central spinal canal stenosis. Bilateral neuroforamina narrowing. L4-5: Broad-based disc bulging. Facet joint and ligamentum flavum hypertrophy. No central spinal canal stenosis. Bilateral neuroforamina narrowing. L5-S1: Broad-based disc bulging. Prominent epidural fat in a circumferential fashion reducing the AP diameter of the thecal sac. Facet joint hypertrophy. Bilateral neuroforamina stenosis, left greater than the right encroaching the exiting nerve roots. No prevertebral compartment hematoma, mass or fluid collection. MR/MR lumbar spine wo con IMPRESSION: Multilevel spondylosis resulting in bilateral neuroforamina narrowing/stenosis pronounced at L5-S1 and to a lesser extent from L2-3 to L4-5 levels encroaching the exiting nerve roots. Epidural lipomatosis, L5-S1 resulting in central spinal canal stenosis. Grade 1 retrolisthesis on a degenerative basis, L1-2. Fatty bone marrow, sacrum. Electronically signed by: Greg Byrd MD 01/11/2025 09:03 AM EDT
== END 2025-01-11 07:52 | disposition home or self-care (01) ==
LOC: HO.MRI 07:51
PROVIDERS: PCP Internal Medicine Medical Oncology; Visit Provider Internal Medicine Medical Oncology
DX: M54.50 Low back pain, unspecified (principal)
CPT/HCPCS: 72148

== ENCOUNTER → 2025-01-11 07:55 | Outpatient (BNV) | payer MEDICARE, MEDICAID, SELFPAY | PROVIDERS: PCP Internal Medicine Medical Oncology; Visit Provider Radiology Diagnostic Radiology | DX: M47.896 Other spondylosis, lumbar region (principal) | CPT/HCPCS: 72148 ==

== ENCOUNTER → 2025-03-13 09:17 | Outpatient (REF) | payer MEDICARE, MEDICAID, SELFPAY ==
--- OUTSIDE RECORDS SUMMARY | 2024-12-26 12:45 | XMS_ITS ---
Author Organization Bryant Orlando III, MD Address [address] [place] [address] Care Team Providers Care Ladle Pourer Name Role Phone Dr. Bryant Orlando III Primary Care Provider [phone] REASON FOR VISIT Follow up Social History Sex Assigned At : Social History Observation Description Sex Assigned At Male Encounters Encounter Location Date Provider Diagnosis Bryant Orlando III, MD [address] [place] [address] [place] [address] 12/26/2024 Bryant Orlando Plan Of Treatment Next Appt Details Provider Name:Bryant Orlando , 03/27/2025 02:30:00 PM, [address] [place] [address] [place], [address], Provider Name:Bryant Orlando , 01/21/2026 02:30:00 PM, [address] [place] [address] [place], [address], Progress Notes * Romeo ELDRIDGEDOB:1955 (69 yo M)Acc No.[id number]:12/26/2024 Progress Notes Patient: Romeo MEJIA Provider: Neida Orlando MD :1955 A ge:69 Y S ex:Male Date:12/26/2024 Address: [address] [place] Subjective: * Chief Complaints: * 1 . [...] MD Date: 0 12/26/2024 Generated for Sid moser/Sonal/Fabiitting on: 0 03/13/2025 10:54 AM EDT
--- OUTSIDE RECORDS SUMMARY | 2024-12-28 07:45 | XMS_ITS ---
Author Organization Bryant Orlando III, MD Address [address] [place] [address] Care Team Providers Care Press Secretary Name Role Phone Dr. Bryant Orlando III Primary Care Provider [phone] Allergies Allergen (clinical drug ingredient) Drug/Non Drug Allergy documented on EMR Reaction Allergy Type Onset Date Status No Known Drug Allergy Unknown Drug Allergy Active Reason For Referral Reason lumbar back pain e valuate and treatment Diagnosis 1 Lumbar back pain (M5 4.50) Referral Organization Bryant Orlando III, MD Referring Provider First Name Bryant Referring Provider Last Name Johanny Referring Provider Speciality Internal M edicine Referred Provider Spine and Sp [facility] Referred Provider Specialty Physical Med icine General Notes Autumn Bolden [facility] 12/29 01:36:49 PM >ref/demo/progress note /x rays faxed to [facility], Autumn Bolden [facility] 01/16/2025 01:52:31 PM >Copy of MRI faxed to [facility] Referral Priority Routine Referral Appointment Date 02/26/2025 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, 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, Low back muscle spasm, [...] Date Provider Diagnosis Bryant Orlando III, MD [address] [place] [address] [place] [address] 12/28/2024 Bryant Orlando Lumbar back pain M54 .50 ; Coronary artery disease involving [place] coronary artery of [place] heart without angina pectoris I25.10 ; Adhesive capsulitis of left shoulder M75.02 ; Obesity (BMI 30-39.9) E66.9 ; Former smoker Z87.891 and Subconjunctival hemorrhage of left eye H11.32 Assessments Encounter Date Diagnosis (ICD Code) Assessment Notes T reatment Notes Treatment Clinical Notes 12/28/2024 Lumbar back pain (ICD-10 - M54.50) 12/28/2024 Coronary artery disease involving [place] coronary artery of pe[place] heart without angina pectoris (ICD-10 - I25.10) [...] lumbar b ack pain evaluate and treatment, [facility] Next Appt Details Follow Up: as scheduled for annual exam, Reason: annual exam Provider Name:Bryant Orlando , 03/27/2025 02:30:00 PM, [address] [place] [address] [address], [place], [address], Provider Name:Bryant Orlando , 01/21/2026 02:30:00 PM, [address] [place] [address] [address], [place], [phone], Progress Notes * Romeo ELDRIDGEDOB:1955 (69 yo M)Acc No.[id number]:12/28/2024 Progress Notes Patient: Romeo MEJIA Provider: Neida Orlando MD :1955 A ge:69 Y S ex:Male Date:12/28/2024 Address:[address] [place], [place] [id number] Subjective: * Chief Complaints: * R equest [...] cyclobenzaprine. 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 Questions H ave you had any new [...] Surgical History: N egative upper endoscopy in [facility] ttempted colonoscopy, preparation inadequate 2022No history * [...] ormer smoker H e was born in [facility]. 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 He has no judaism objection to blood transfusion. He has no children. He is not currently working. 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 {'Living Situation': 'Lives with [place]', 'Work Status': 'Retired'}. * Medications: T akingGabapentin [...] Assessment: 1. C oronary artery disease involving [place] coronary artery of pe[place] heart without angina pectoris - I25.10 (Primary) [...] MD Date: 0 12/28/2024 Generated for Sid moser/Faxing/eTransmitting on: 0 03/13/2025 10:55 AM EDT History and Physical Notes * [...] kaushik 12/28/2024 Bryant [facility] back pain evaluate and treatment
--- OUTSIDE RECORDS SUMMARY | 2025-01-17 10:30 | XMS_ITS ---
Author Organization Bryant Orlando III, MD Address [address] [place] [address] Care Team Providers Care Technical Staff Engineer Name Role Phone Dr. Bryant Orlando [...] Internal M edicine Referred Provider Thai Mistry [facility] er, Cardiology Referred Provider Specialty Cardiology General Notes Vera Samirjaya ASMPapi 06/2024 02:27:50 PM > Faxed referral to [facility] Cardiology Referral Priority Routine REASON FOR VISIT [...] Date Provider Diagnosis Bryant Orlando III, MD [address] [place] [address] [place] [address] 01/17/2025 Bryant Orlando Ischemic heart disea se I25.9 ; Hearing loss, bilateral H91.93 ; Essential hypertension I10 ; Edentulous K08.109 ; Mixed hyperlipidemia E78.2 ; Obesity (BMI 30-39.9) E66.9 ; Coronary artery disease involving [place] coronary artery of [place] heart without angina pectoris I25.10 ; Venous stasis I87.8 ; Adhesive capsulitis of left shoulder M75.02 and Former smoker Z87.891 Assessments Encounter Date Diagnosis (ICD Code) Assessment Notes Treat ment Notes Treatment Clinical Notes 01/17/2025 Ischemic heart disease (ICD-10 - I25.9) He has a history of coronary artery disease when he was living in the [facility] but I do not have the records. [...] and sodium. 01/17/2025 Coronary artery disease involving [place] coronary artery of [place] heart without angina pectoris (ICD-10 - I25.10) [...] Details 01/19/2025 01/19/2025, Consult and Treat, Cardiology [facility] Next Appt Details Follow Up: 4 Weeks, Reason: OV Provider Name:Bryant Orlando , 03/27/2025 02:30:00 PM, [address] [place] [address] [address], [address], [place], [id number], Provider Name:Bryant Orlando , 01/21/2026 02:30:00 PM, [address] [place] [address] [address], [place], [phone], Progress Notes * Romeo ELDRIDGEDOB:1955 (69 yo M)Acc No.[id number]:01/17/2025 Progress Notes Patient: Romeo MEJIA Provider: Neida Orlando MD :1955 A ge:69 Y S ex:Male Date:01/17/2025 Address:[address] [place] [address] [id number] Subjective: * Chief Complaints: * A nnual [...] N egative upper endoscopy in [facility] ttempted colonoscopy, preparation inadequate 2022No [...] ormer smoker H martir was born in [facility]. 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 He has no yazdanism objection to blood transfusion. He has no children. He is not currently working. 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 {'Living Situation': 'Lives with [place]', 'Work Status': 'Retired'}. * Medications: T akingGabapentin [...] disease when he was living in the [facility] but I do not have the records. [...] 7 . C oronary artery disease involving [place] coronary artery of [place] heart without angina pectoris - I25.10 N [...] capsule, Orally, Once a day. Referral To:Cardiology [facility] Cardiology Reason:Consult and Treat * Procedure Codes: [...] true * Provider: Neida Orlando MD Date: 01/17/2025 Generated for [employer] shanti/Sonal/eTransmitting on: 03/13/2025 10:55 AM EDT History and Physical [...] Provider Referred Provider Not kaushik 01/19/2025 Johanny [facility], [facility] diology Consult and Treat
--- OUTSIDE RECORDS SUMMARY | 2025-02-13 10:45 | XMS_ITS ---
Author Organization Bryant Orlando III, MD Address [address] [facility] [place] [address] Care Team Providers Care Semiconductor Lab Technician Name Role Phone Dr. Bryant Orlando III [...] Problem Status W/U Status Risk Notes Problem 042800429 Deviated nasal septum (J34.2) Active confirmed Gave him a prescription for Flonase because of the congestion. If this does not solve the problem he will have a referral to ENT. Problem 41526890 Nasal congestion (R09.81) Active confirmed I gave him a prescription for Flonase. Vital Signs Temperature 97.3 degrees Fahrenheit 02/14/20 25 Blood pressure systolic 148 mm Hg 02/14/20 25 Blood pressure diastolic 82 mm Hg 025 Heart Rate 65 /min 02/13/2025 Height 62.5 in 02/13/2025 Weight 209 lbs 02/13/2025 BMI 37.61 kg/m2 02/13/2025 Encounters Encounter Location Date Provider Diagnosis Bryant Orlando III, MD [address] [place] [address] [place] [address] 02/13/2025 Bryant Orlando Deviated nasal septu m J34.2 ; Nasal congestion R09.81 ; Adhesive capsulitis of left shoulder M75.02 ; Hearing loss, bilateral H91.93 ; Edentulous K08.109 ; Mixed hyperlipidemia E78.2 ; Obesity (BMI 30-39.9) E66.9 ; Coronary artery disease involving [place] coronary artery of [place] heart without angina pectoris I25.10 ; Former [...] and sodium. 02/13/2025 Coronary artery disease involving [place] coronary artery of [place] heart without angina pectoris (ICD-10 - I25.10) [...] Provider Name:Bryant Orlando , 03/27/2025 02:30:00 PM, [address] [facility] [address], [place], [address], Provider Name:Bryant Orlando , 01/21/2026 02:30:00 PM, [address] [facility] [address], [place], [address], Progress Notes * Romeo ELDRIDGEDOB:1955 (69 yo M)Acc No.[id number]:02/13/2025 Progress Notes Patient: Romeo MEJIA Provider: Neida Orlando MD :1955 A ge:69 Y S ex:Male Date:02/13/2025 Address:[address] [place] [address] [place] [facility] Subjective: * Chief Complaints: * H ypertensionHearing [...] Surgical History: N egative upper endoscopy in [facility] ttempted colonoscopy, preparation inadequate 2022No history [...] ormer smoker H martir was born in [facility]. 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 He has no sikhism objection to blood transfusion. He has no children. He is not currently working. 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 {'Living Situation': 'Lives with [place]', 'Work Status': 'Retired'}. * Medications: T akingGabapentin [...] 8 . C oronary artery disease involving [place] coronary artery of [place] heart without angina pectoris - I25.10 N [...] 0 02/13/2025 Generated for Sid moser/Sonal/Fabiitting on: 0 03/13/2025 10:55 AM EDT History [...]
--- OUTSIDE RECORDS SUMMARY | 2025-02-27 06:12 | XMS_ITS ---
Author Organization Bryant Orlando III, MD Address [address] [place] [address] Care Team Providers Care Plaster Mechanic Name Role Phone Dr. Bryant Orlando III Primary Care Provider REASON FOR VISIT Clearance letter Social History Sex Assigned At : Social History Observation Description Sex Assigned At Male Encounters Encounter Location Date Provider Diagnosis Bryant Orlando III, MD [address] [place] [address] [place] [address] 02/27/2025 Bryant Orlando Plan Of Treatment Next Appt Details Provider Name:Bryant Orlando , 03/27/2025 02:30:00 PM, [address] [place] [address] [place], [address], Provider Name:Bryant Orlando , 01/21/2026 02:30:00 PM, [address] [place] [address] [place], [address], Progress Notes * AMIRA RomeoDOB:1955 (69 yo M)Acc No.[id number]:02/27/2025 Patient: Romeo MEJIA :1955 A ge:69 Y S ex:Male Address: [place] [address] * true * Date: Generated for Printi ng/Faxing/eTransmitting on: 0 03/13/2025 10:54 AM EDT
--- NOTE | 2025-03-13 09:24 | CA_ITS ---
Acquisition Time: 2025-03-13 09:23:40 Total Exercise Time: 00:07:55 Test Indications: CP Medications: SEE H&P Protocol: YOLANDA Max HR: 120 BPM 79% of Pred: 151 BPM Max BP: 146/80 mmHG Max Work Load: 9.9 METS Exercise stress test with exercise 7 mins 55 secs of Yolanda Protocol, achieving 77% MPHR, requested to stop due to feeling fatigued, with reports of 4/10 left sided sharp pains radiating into upper back that resolved quickly in recovery, with SOB, with frequent PACs and PVCs, with normotenisve response to exercise. Without any EKG changes meeting criteria for ischemia at achieved workload. Breathing returned to baseline in recovery. Recommend stress test with nuclear images for further eval. Test reviewed with Dr. Patel. Referred By: Bryant Orlando Electronically Signed By: Avinash Judge
--- OUTSIDE RECORDS SUMMARY | 2025-03-13 10:55 | XMS_ITS | Patient Health Record ---
Author Organization Bryant Orlando III, MD Address [address] [address] Care Team Providers Care Spar Cap Beveler Name Role Phone Dr. Bryant Orlando III Primary Care Provider Allergies Allergen (clinical drug ingredient) Drug/Non Drug Allergy documented on EMR Reaction Allergy Type Onset Date Status No Known Drug Allergy Unknown Drug Allergy Active Results Component Value Reference Range Notes Complete Blood Count Auto Di ff Reviewed date:05/15/2024 07:37:32 AM Interpretation: Performing Lab:[facility], [address] [place] [phone] Notes/Report: White Blood Count 6.9 4.8-10.8 X10*3/uL Red Blood Count 5.04 4.60-5.80 X10*6/uL Hemoglobin 14.8 14.0-18.0 g/dl Hematocrit 44.7 42.0-52.0 % Mean Corpuscular Volume 88.7 80.0-98.0 fL Mean Corpuscular Hemoglobin 29.4 27.0-33.0 pg Mean Corpuscular HGB Conc 33.1 31.0-36.0 g/dl Red Cell Distribution Width 13.3 11.0-16.0 % Platelet Count 171 160-400 X10*3/uL Mean Platelet Volume 9.8 9.4-12.4 fL Neutrophils Percent Auto 54.0 45-73 % Imm Gran Pct Auto 0.3 0.0-0.4 % Lymphocytes Percent Auto 28.6 20-40 % Monocytes Percent Auto 11.8 2-11 % Eosinophils Percent Auto 4.7 0-4 % Basophils Percent Auto 0.6 0-2 % NRBC Pct Auto 0.0 0.0-0.2 /100WBC Neutrophils Absolute Auto 3.7 2.0-8.3 x10*3/u L Imm Gran Abs Auto 0.02 0.00-0.03 X10*3/uL Lymphocytes Absolute Auto 2.0 1.2-4.9 X10*3/u L Monocytes Absolute Auto 0.8 0.1-1.2 X10*3/uL Eosinophils Absolute Auto 0.3 0.0-0.4 X10*3/u L Basophils Absolute Auto 0.0 0.0-0.2 X10*3/uL NRBC Abs Auto 0.000 0.0-0.012 X10*3/uL Comprehensive [place]. Panel Fa st Reviewed date:05/15/2024 07:37:32 AM Interpretation: Performing Lab:[facility], [address] [place] [phone] Notes/Report: Sodium 139 135-145 mmol/L Potassium 4.3 3.3-5.1 mmol/L Chloride 103 96-108 mmol/L Carbon Dioxide 31 22-29 mmol/L Anion Gap 9 12-20 Blood Urea Nitrogen 15 9-16 mg/dL Creatinine 0.79 0.5-1.4 mg/dL Estimated Glomerular Filt Rate > 60 Chronic Kidney Disease: Estimated GFR < 60 mL/min/1.73m2 Severe Kidney Disease: Estimated GFR < 15 mL/min/1.73m2 Glucose Fasting 117 60-99 mg/dL A fasting glucose from 100-125 mg/dl is considered impaired (pre-diabetes). Calcium 9.6 8.4-10.2 mg/dL Bilirubin Total 0.6 0.0-1.0 mg/dL Aspartate Amino Transferase 45 5-37 U/L Alanine Aminotransferase 57 0-40 U/L Total Protein 7.7 6.5-8.0 g/dL Albumin Level 4.1 3.5-5.0 g/dL Alkaline Phosphatase 75 39-117 U/L Lipid Panel Reviewed date:05/15/2024 07:37:32 AM Interpretation: Performing Lab:[facility], [address] [place] [phone] Notes/Report: Triglycerides 209 <150 mg/dL Desirable Triglyceride: less than 150 mg/dL Borderline High Triglyceride 150-199 mg/dL High Triglyceride: 200-499 mg/dL Very High Triglyceride: greater than or equal to 5OO mg/dL Cholesterol 145 <200 mg/dL Desirable Cholesterol: less than 200 mg/dL Borderline High Cholesterol: 200-239 mg/dL High Cholesterol: greater than 239 mg/dL LDL Cholesterol Calculated 74 <100 mg/dL Desirable LDL: less than 100 mg/dL Near Optimal/Above Optimal LDL: 110-129 mg/dL Borderline High LDL: 130-159 mg/dL High LDL: 160-189 mg/dL Very High LDL: greater than or equal to 190 mg/dL HDL Cholesterol 30 >40 mg/dL Desirable HDL: greater than 40 mg/dL Note: This HDL assay may give artificially low results in patients with liver disease. XR thoracic spine 3V Reviewed date:06/27/2024 04:07:46 PM Interpretation: Performing Lab: Notes/Report: [address] [address] XRay Report Signed Patient: Romeo Eldridge MR#: [id number] : 1955 Acct:[id number] Age/Sex: 69 / M ADM Date: 06/07/24 Loc: HO.XRAY Attending Dr: Bryant Orlando MD Ordering Physician: Bryant Orlando MD Date of Service: 06/07/24 Procedure(s): XR thoracic spine 3V Accession Number(s): [id number] cc: Bryant Orlando MD EXAMINATION: XR THORACIC SPINE; XR LUMBAR SPINE CLINICAL INFORMATION: Lumbar back pain. COMPARISON: None available TECHNIQUE: 3 views of the thoracic spine were obtained. 5 images of lumbar spine. FINDINGS: There is normal lumbar lordosis. The vertebral heights and alignment is normal. On oblique views there is no pars defect or listhesis. There is no acute fracture, lytic or sclerotic process. The paravertebral soft tissues are normal. XR/XR thoracic spine 3V IMPRESSION: Unremarkable lumbar spine exam. Electronically signed by: Jaswant Robles MD 06/16/2024 05:[address] [facility] Dictated By: Jaswant Robles MD Signed By: <Electronically signed by Jaswant Robles MD in OV> 06/16/24 1725 DD/ 1448 TD/TT: 06/07/24 1500 [employer]: [address] [address] XRay Report Signed Patient: Romeo Eldridge R#: [id number] : 1955 Acct:[id number] Age/Sex: 69 / M ADM Date: 06/07/24 Loc: HO.XRAY Attending Dr: Bryant Orlando MD Ordering Physician: Bryant Orlando MD Date of Service: 06/07/24 Procedure(s): XR thoracic spine 3V Accession Number(s): [id number] cc: Bryant Orlando MD EXAMINATION: XR THORACIC SPINE; X R LUMBAR SPINE CLINICAL INFORMATION: Lumbar back pain. COMPARISON: None available TECHNIQUE: 3 views of the thora cic spine were obtained. 5 images of lumbar spine. FINDINGS: There is normal lumb ar lordosis. The vertebral heights and alignment is normal. On oblique views there is no pars defect or listhesis. There is no acute fracture, lytic or sclerotic process. The paravertebral soft tissues are normal. XR/XR thoracic spine 3V IMPRESSION: Unremarkable lumbar spine exam. Electronically carlos d by: Jaswant Robles MD 06/16/2024 05:[address] [facility] Dictated By: Jaswant Robles MD Signed By: <Electronically signed by Jaswant Robles MD in OV> 06/16/24 1725 DD/ 1448 TD/TT: 06/07/24 1500 [employer]: [facility] XR lumbar spine 4V min Reviewed date:06/27/2024 04:07:46 PM Interpretation: Performing Lab: Notes/Report: [address] [address] XRay Report Signed Patient: Romeo Eldridge MR#: [id number] : 1955 Acct:[id number] Age/Sex: 69 / M ADM Date: 06/07/24 Loc: HO.XRAY Attending Dr: Bryant Orlando MD Ordering Physician: Bryant Orlando MD Date of Service: 06/07/24 Procedure(s): XR lumbar spine 4V min Accession Number(s): [id number] cc: Bryant Orlando MD EXAMINATION: XR THORACIC SPINE; XR LUMBAR SPINE CLINICAL INFORMATION: Lumbar back pain. COMPARISON: None available TECHNIQUE: 3 views of the thoracic spine were obtained. 5 images of lumbar spine. FINDINGS: There is normal lumbar lordosis. The vertebral heights and alignment is normal. On oblique views there is no pars defect or listhesis. There is no acute fracture, lytic or sclerotic process. The paravertebral soft tissues are normal. XR/XR lumbar spine 4V min IMPRESSION: Unremarkable lumbar spine exam. Electronically signed by: Jaswant Robles MD 06/16/2024 05:25 PM EST RP Dictated By: Jaswant Robles MD Signed By: <Electronically signed by Jaswant Robles MD in OV> 06/16/24 1725 DD/ 1505 TD/TT: 06/07/24 1515 [employer]: [place] [address] XRay Report Signed Patient: Romeo Eldridge#: [id number] : 1955 Acct:[id number] Age/Sex: 69 / M ADM Date: 06/07/24 Loc: HO.XRAY Attending Dr: Bryant Orlando MD Ordering Physician: Bryant Orlando MD Date of Service: 06/07/24 Procedure(s): XR lum bar spine 4V min Accession Number(s): [id number] cc: Bryant Orlando MD EXAMINATION: XR THORACIC SPINE; X R LUMBAR SPINE CLINICAL INFORMATION: Lumbar back pain. COMPARISON: None available TECHNIQUE: 3 views of the thora cic spine were obtained. 5 images of lumbar spine. FINDINGS: There is normal lumb ar lordosis. The vertebral heights and alignment is normal. On oblique views there is no pars defect or listhesis. There is no acute fracture, lytic or sclerotic process. The paravertebral soft tissues are normal. XR/XR lumbar spine 4V min IMPRESSION: Unremarkable lumbar spine exam. Electronically carlos d by: Jaswant Robles MD 06/16/2024 05:25 PM EST RP Dictated By: Jaswant Robles MD Signed By: <Electronically signed by Jaswant Robles MD in OV> 06/16/24 1725 DD/ 1505 TD/TT: 06/07/24 1515 [employer]: [facility] XR hips NIA min 3V (Not yet reviewed by provider) Interpretation: Performing Lab: Notes/Report: [address] [address] XRay Report Signed Patient: Romeo Eldridge MR#: [id number] : 1955 Acct:[id number] Age/Sex: 69 / M ADM Date: 11/28/24 Loc: HO.CARD Attending Dr: Bryant Orlando MD Ordering Physician: Bryant Orlando MD Date of Service: 11/28/24 Procedure(s): XR hips NIA min 3V Accession Number(s): [id number] cc: Bryant Orlando MD CLINICAL HISTORY: bilat. hip pain 4 view, pelvis and bilateral hips Comparison: None Findings: Moderate osteoarthritis of the right hip. Ynfrbwax-ia-zmogav osteoarthritis of the left hip. Mild deformities of the imaged femurs appear old/chronic including flattening of the left femoral head. Portions of the pelvis obscured without definite acute displaced fracture. Moderate stool burden in the adztc-xu-zpoa. IMPRESSION: Osteoarthritis of the both hips, left worse than right. This document has been electronically signed by: Jaime Ramirez MD on 11/28/2024 20:15:18 Dictated By: Jaime Ramirez MD Signed By: <Electronically signed by Jaime Ramirez MD in OV> 11/28/242014 DD/ 14 TD/TT: 11/28/242014 [employer]: [address] [address] XRay Report Signed Patient: Romeo Eldridge R#: [id number] : 1955 Acct:[id number] Age/Sex: 69 / M ADM Date: 11/28/24 Loc: HO.CARD Attending Dr: Bryant Orlando MD Ordering Physician: Bryant Orlando MD Date of Service: 11/28/24 Procedure(s): XR hip s NIA min 3V Accession Number(s): [id number] cc: Bryant Orlando MD CLINICAL HISTORY: bilat. hip pain 4 view, pelvis and bilateral hips Comparison: None Findings: Moderate osteoarthri tis of the right hip. Enqkorbm-um-zbofif osteoarthritis of th e left hip. Mild deformities of the imaged femurs appear old/chronic including flattening of the left femoral head. Portions of the pelvis obscur ed without definite acute displaced fracture. Moderate stool burde n in the oajkc-it-obfi. IMPRESSION: Osteoarthritis of th e both hips, left worse than right. This document has be en electronically signed by: Jaime Ramirez MD on 11/28/2024 20:15:18 Dictated By: Saumya Ramirez MD Signed By: <Electronically signed by Jaime Ramirez MD in OV> 11/28/242014 DD/ 14 TD/TT: 11/28/242014 [employer]: XR lumbar spine 2-3V (Not ye t reviewed by provider) Interpretation: Performing Lab: Notes/Report: [place] [address] XRay Report Signed Patient: Romeo Eldridge MR#: [id number] : 1955 Acct:[id number] Age/Sex: 69 / M ADM Date: 11/28/24 Loc: HO.CARD Attending Dr: Bryant Orlando MD Ordering Physician: Bryant Orlando MD Date of Service: 11/28/24 Procedure(s): XR lumbar spine 2-3V Accession Number(s): [id number] cc: Bryant Orlando MD CLINICAL HISTORY: lumbar [...] in OV> 11/28/242012 DD/ 11 TD/TT: 11/28/242011 [employer]: [address] [address] XRay Report Signed Patient: Romeo Eldridge R#: [id number] : 1955 Acct:[id number] Age/Sex: 69 / M ADM Date: 11/28/24 Loc: HO.CARD Attending Dr: Bryant Orlando MD Ordering Physician: Bryant Orlando MD Date of Service: 11/28/24 Procedure(s): XR lum bar spine 2-3V Accession Number(s): [id number] cc: Bryant Orlando MD CLINICAL HISTORY: lumbar [...] Sacrum is mostly obscured. IMPRESSION: 1. Degenerative madden ges include multifocal facet arthropathy by radiographs. 2. No acute compress ion fracture of the 5 lumbar vertebrae. This document has be en electronically signed by: Jaime Ramirez MD on 11/28/2024 20:12:50 Dictated By: Saumya Ramirez MD Signed By: <Electronically signed by Jaime Ramirez MD in OV> 11/28/242012 DD/ 11 TD/TT: 11/28/242011 [employer]: XR sacrum coccyx min 2V (Not yet reviewed by provider) Interpretation: Performing Lab: Notes/Report: [address] [address] XRay Report Signed Patient: Romeo Eldridge MR#: [id number] : 1955 Acct:[id number] Age/Sex: 69 / M ADM Date: 11/28/24 Loc: HOJeanetteCARD Attending Dr: Bryant Orlando MD Ordering Physician: Bryant Orlando MD Date of Service: 11/28/24 Procedure(s): XR sacrum coccyx min 2V Accession Number(s): [id number] cc: Bryant Orlando MD CLINICAL HISTORY: PAIN [...] in OV> 11/28/242013 DD/ 12 TD/TT: 11/28/242012 [employer]: [place] [address] XRay Report Signed Patient: Romeo Eldridge#: [id number] : 1955 Acct:[id number] Age/Sex: 69 / M ADM Date: 11/28/24 Loc: CARD Attending Dr: Bryant Orlando MD Ordering Physician: Bryant Orlando MD Date of Service: 11/28/24 Procedure(s): XR sac rum coccyx min 2V Accession Number(s): [id number] cc: Bryant Orlando MD CLINICAL HISTORY: PAIN [...] Ramirez MD on 11/28/2024 20:13:38 Dictated By: Saumya Ramirez MD Signed By: <Electronically signed by Jaime Ramirez MD in OV> 11/28/242013 DD/ 12 TD/TT: 11/28/242012 [employer]: MR lumbar spine wo con (Not yet reviewed by provider) Interpretation: Performing Lab: Notes/Report: [address] [address] Magnetic Resonance Report Signed Patient: Romeo Eldridge MR#: [id number] : 1955 Acct:[id number] Age/Sex: 69 / M ADM Date: 01/11/25 Loc: HO.MRI Attending Dr: Bryant Orlando MD Ordering Physician: Bryant Orlando MD Date of Service: 01/11/25 Procedure(s): MR lumbar spine wo con Accession Number(s): [id number] cc: Bryant Orlando MD EXAMINATION: MR LUMBAR SPINE WITHOUT CONTRAST CLINICAL INFORMATION: Low back pain. COMPARISON: Correlated to x-ray dated November 28, 2024. TECHNIQUE: MRI of the lumbar spine was obtained using routine sequences without contrast. FINDINGS: Last rib-bearing vertebra labeled T12. No bone marrow STIR signal abnormality. Multilevel marginal osteophyte formation, disc desiccation and decreased intervertebral disc height from T10-11 to L5-S1. Multilevel Schmorl nodes. 1 mm retrolisthesis L1-2. Conus medullaris ends at pedicle of L1 with normal signal. Intrinsic hyperintense T1 bone marrow lesion at L1, T11 and T10 likely intraosseous hemangiomata. Hyperintense T1 bone marrow signal involving the sacrum and posterior iliac bone, bilaterally. T12-L1: No disc herniation. No neuroforamina stenosis. L1-2: Broad-based disc bulging. Facet joint hypertrophy. No central spinal canal stenosis. Bilateral neuroforamina narrowing. L2-3: Broad-based disc bulging. No central spinal canal stenosis. Bilateral neuroforamina narrowing. L3-4: Broad-based disc bulging. No central spinal canal stenosis. Bilateral neuroforamina narrowing. L4-5: Broad-based disc bulging. Facet joint and ligamentum flavum hypertrophy. No central spinal canal stenosis. Bilateral neuroforamina narrowing. L5-S1: Broad-based disc bulging. Prominent epidural fat in a circumferential fashion reducing the AP diameter of the thecal sac. Facet joint hypertrophy. Bilateral neuroforamina stenosis, left greater than the right encroaching the exiting nerve roots. No prevertebral compartment hematoma, mass or fluid collection. MR/MR lumbar spine wo con IMPRESSION: Multilevel spondylosis resulting in bilateral neuroforamina narrowing/stenosis pronounced at L5-S1 and to a lesser extent from L2-3 to L4-5 levels encroaching the exiting nerve roots. Epidural lipomatosis, L5-S1 resulting in central spinal canal stenosis. Grade 1 retrolisthesis on a degenerative basis, L1-2. Fatty bone marrow, sacrum. Electronically signed by: Greg Byrd MD 01/11/2025 09:03 AM EDT RP Dictated By: Greg Tran MD Signed By: <Electronically signed by Greg Alcaraz MD in OV> 01/11/25 0903 DD/ 0755 TD/TT: 01/11/25 0825 [employer]: [place] [address] Magnetic Resonance Report Signed Patient: Romeo Eldridge R#: [id number] : 1955 Acct:[id number] Age/Sex: 69 / M ADM Date: 01/11/25 Loc: HO.MRI Attending Dr: Bryant Orlando MD Ordering Physician: Bryant Orlando MD Date of Service: 01/11/25 Procedure(s): MR lum bar spine wo con Accession Number(s): [id number] cc: Bryant Orlando MD EXAMINATION: MR LUMBAR SPINE WITH OUT CONTRAST CLINICAL INFORMATION: Low back pain. COMPARISON: Correlated to x-ray dated November 28, 2024. TECHNIQUE: MRI of the lumbar sp ine was obtained using routine sequences without contrast. FINDINGS: Last rib-bearing vertebra labeled T12. No bone marrow STIR signal abnormality. Multilevel marginal osteophyte formation, disc desiccation and decreased intervertebral disc height from T10-11 to L5-S1. Multilevel Schmorl nodes. 1 mm retrolisthesis L1-2. Conus medullaris end s at pedicle of L1 with normal signal. 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 Hyperintense T1 bone marrow signal involving the sacrum and posterior iliac bone, bilaterally. T12-L1: No disc herniation. No neuroforamina stenosis. L1-2: Broad-based disc bulging. Facet joint hypertrophy. No central spinal canal stenosis. Bilateral neuroforamina narrowing. L2-3: Broad-based disc bulging. No central spinal canal stenosis. Bilateral neuroforamina narrowing. L3-4: Broad-based disc bulging. No central spinal canal stenosis. Bilateral neuroforamina narrowing. L4-5: Broad-based disc bulging. Facet joint and ligamentum flavum hypertrophy. No cent ral spinal canal stenosis. Bilateral neuroforamina narrowing. L5-S1: Broad-based disc bulging. Prominent epidural fat in a circumferential fashion reducing the AP diameter of the thecal sac. Facet joint hypertrophy. Bilater al neuroforamina stenosis, left greater than the right encroaching th e exiting nerve roots. No prevertebral compartment hematoma, mass or fluid collection. MR/MR lumbar spine wo con IMPRESSION: Multilevel spondylos is resulting in bilateral neuroforamina narrowing/stenosis pronounced at L5-S1 and to a lesser extent from L2-3 to L4-5 levels encroaching the exiting nerve roots. Epidural lipomatosis , L5-S1 resulting in central spinal canal stenosis. Grade 1 retrolisthes is on a degenerative basis, L1-2. Fatty bone marrow, sacrum. Electronically carlos d by: Greg Byrd MD 01/11/2025 09:03 AM EDT Dictated By: Greg Chu MD Signed By: <Electronically signed by Greg Alcaraz MD in OV> 01/11/25 0903 DD/ 0755 TD/TT: 01/11/25 0825 [employer]: Reason For Referral Reason lumbar back pain e valuate and treatment Diagnosis 1 Lumbar back pain (M5 4.50) Referral Organization Bryant Orlando III, MD Referring Provider First Name Bryant Referring Provider Last Name Orlando Referring Provider Speciality Internal M edicine Referred Provider [facility] Referred Provider Specialty Physical Med icine General Notes Autumn Bolden CMA 12/29 01:36:49 PM >ref/demo/progress note /x rays faxed to [facility], Kimi Autumnfaith COFFEY 01/16/2025 01:52:31 PM >Copy of MRI faxed to [facility] Referral Priority Routine Referral Appointment Date 02/26/2025 Reason Consult and Treat Diagnosis 1 Ischemic heart disea se (I25.9) Diagnosis 2 Chest pain due to my ocardial ischemia, unspecified ischemic chest pain type (I25.9) Referral Organization Bryant Orladno III, MD Referring Provider First Name Bryant Referring Provider Last Name Johanny Referring Provider Speciality Internal M edicine Referred Provider [facility] er, Cardiology Referred Provider Specialty Cardiology General Notes PGloria ASMA 06/2024 02:27:50 PM > Faxed referral to [facility] Cardiology Referral Priority Routine Medications Medication SIG (Take, Route, Frequency, Duration) Notes Start Date End Date Status Omeprazole 20 MG 1 capsule Orally Onc e a day 12/28/2024 Active dexAMETHasone 2 MG 1 tablet Orally [...] in each nostril Nasally Twice a day for 30 days As needed Active Social History Tobacco Use: Social History Observation Description Date Details (start date - stop date) Former Smoker NA - NA Sex Assigned At : Social History Observation Description Sex Assigned At Male Tobacco Use/Smoking Question Answer Notes Patient is a former smoker Alcohol Screen Question Answer Notes Did you have a drink containing alcohol in the p ast year? No Points 0 Interpretation Negative Problems Problem Type SNOMED Code ICD Code Onset Dates Problem Status W/U Status Risk Notes Problem 4395156 Former smoker (Z87.891) Active confirmed He stopped smoking in 2007. We made a plan to prevent relapse in times of stress and illness. Problem 776645175 Mixed hyperlipidemia (E78.2) Active confirmed His total cholesterol fasting is in range. Current therapy was continued without change. Problem 136377195 Deviated nasal septum (J34.2) Active confirmed Gave him a prescription for Flonase because of the congestion. If this does not solve the problem he will have a referral to ENT. Problem 050879454020134 Adhesive capsulitis of left shoulder (M75.02) Active confirmed I have offered to refer him to orthopedic surgery for injections. He is going to consider it. He may need lysis of the adhesions. Problem 32983623 Nasal congestion (R09.81) Active confirmed I gave him a prescription for Flonase. Problem 274054134 Obesity (BMI 30-39.9) (E66.9) Active confirmed His body mass index is 37. He weighs 206 pounds.We have discussed weight reduction strategies today. We discussed his elevated blood pressure. He will lose weight at a rate of one half of a pound per week through a diet restricted in fat calories and sodium. Problem 59463018 Essential hypertension (I10) Active confirmed His blood pressure today is Within normal limits. We have discussed weight reduction and sodium restriction. A repeat visit in several weeks was arranged. His blood pressure will be treated if it remains at this level Problem Hearing loss (13139023) Hearing loss, bilateral (H91.93) Active confirmed He has hearing aids but was not wearing them today. He will bring them next time he comes in to see if there are working properly. Problem 65023839 Coronary artery disease involving [place] coronary artery of [place] heart without angina pectoris (I25.10) Active confirmed His old records do not include documentation of a cardiac catheterization but do say that he had disease in his circumflex artery there was noncritical. His current medications were continued including the aspirin. Problem 64357863512925 History of hepatitis C (Z86.19) Active confirmed He was treated in the past with Epclusa. Lipid function tests have been ordered. Problem 800939434 Edentulous (K08.109) Active confirmed He was wearing dentures today. He says he is able to chew and swallow without difficulty. 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 Problem Low back pain (finding) (053120820) Lumbar back pain (M54.50) Active confirmed The back pain persists but is slightly better. The gabapentin low-dose gives him mild relief. The gabapentin was increased. The dexamethasone has been discontinued. He will continue to use heat and rest. I have referred him to pain management. Problem 94737888 Venous stasis (I87.8) Active confirmed His venous stasis changes are mild and do not require therapy at this time. Vital Signs Heart Rate 65 /min 02/13/2025 Temperature 97.3 degrees Fahrenheit 02/13/2025 Blood pressure diastolic 82 mm Hg 02/13/2025 Height 62.5 in 02/13/2025 Blood pressure systolic 148 mm Hg 02/13/2025 Weight 209 lbs 02/13/2025 BMI 37.61 kg/m2 02/13/2025 Encounters Encounter Location Date Provider Diagnosis Bryant Orlando III, MD [address] [place] [address] [place] [address] 01/17/2025 Bryant Orlando Ischemic heart disea se I25.9 ; Hearing loss, bilateral H91.93 ; Essential hypertension I10 ; Edentulous K08.109 ; Mixed hyperlipidemia E78.2 ; Obesity (BMI 30-39.9) E66.9 ; Coronary artery disease involving [place] coronary artery of [place] heart without angina pectoris I25.10 ; Venous stasis I87.8 ; Adhesive capsulitis of left shoulder M75.02 and Former smoker Z87.891 Bryant Orlando III, MD [address] [place] [address] [place] [address] 06/07/2024 Bryant Orlando Lumbar back pain M54 .50 ; Obesity (BMI 30-39.9) E66.9 ; Former smoker Z87.891 ; Essential hypertension I10 ; Edentulous K08.109 ; Mixed hyperlipidemia E78.2 ; Hearing loss, bilateral H91.93 ; Adhesive capsulitis of left shoulder M75.02 and Coronary artery disease involving [place] coronary artery of [place] heart without angina pectoris I25.10 Bryant Orlando III, MD [address] [place] [address] [place] [address] 07/13/2024 Bryant Orlando Lumbar back pain M54 .50 ; Former smoker Z87.891 ; Coronary artery disease involving [place] coronary artery of [place] heart without angina pectoris I25.10 ; History of hepatitis C Z86.19 ; Venous stasis I87.8 ; Adhesive capsulitis of left shoulder M75.02 ; Obesity (BMI 30-39.9) E66.9 ; Mixed hyperlipidemia E78.2 and Essential hypertension I10 Bryant Orlando III, MD [address] [place] [address] [place] [address] 08/10/2024 Bryant Orlando Lumbar back pain M54 .50 ; Essential hypertension I10 ; Hearing loss, bilateral H91.93 ; Edentulous K08.109 ; Mixed hyperlipidemia E78.2 ; Obesity (BMI 30-39.9) E66.9 ; Adhesive capsulitis of left shoulder M75.02 ; Former smoker Z87.891 and Coronary artery disease involving [place] coronary artery of [place] heart without angina pectoris I25.10 Bryant Orlando III, MD [address] [place] [address] [place] [address] 11/28/2024 Bryant Orlando Subconjunctival hemorrhage of left eye H11.32 ; Essential hypertension I10 ; Hearing loss, bilateral H91.93 ; Edentulous 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 ; Mixed hyperlipidemia E78.2 ; Obesity (BMI 30-39.9) E66.9 ; Venous stasis I87.8 ; Adhesive capsulitis of left shoulder M75.02 ; Coronary artery disease involving [place] coronary artery of [place] heart without angina pectoris I25.10 and Former smoker Z87.891 Bryant Orlando III, MD [address] [place] [address] [place] [address] 12/28/2024 Bryant Orlando Lumbar back pain M54 .50 ; Coronary artery disease involving [place] coronary artery of [place] heart without angina pectoris I25.10 ; Adhesive capsulitis of left shoulder M75.02 ; Obesity (BMI 30-39.9) E66.9 ; Former smoker Z87.891 and Subconjunctival hemorrhage of left eye H11.32 Bryant Orlando III, MD [address] [place] [address] [place] [address] 02/13/2025 Bryant Orlando Deviated nasal septu m J34.2 ; Nasal congestion R09.81 ; Adhesive capsulitis of left shoulder M75.02 ; Hearing loss, bilateral H91.93 ; Edentulous 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.109 ; Mixed hyperlipidemia E78.2 ; Obesity (BMI 30-39.9) E66.9 ; Coronary artery disease involving [place] coronary artery of [place] heart without angina pectoris I25.10 ; Former smoker Z87.891 and Lumbar back pain M54.50 Bryant Orlando III, MD [address] [place] [address] [address] [place] [address] 09/01/2024 Bryant Orlando III, MD [address] [place] [address] [address] [place], [place] [address] 02/27/2025 Bryant Orlando III, MD [address] [place] [address] [address] [place] [address] 06/23/2024 Bryant Orlando Lumbar back pain M54 .50 ; Former smoker Z87.891 ; Coronary artery disease involving [place] coronary artery of [place] heart without angina pectoris I25.10 ; Obesity (BMI 30-39.9) E66.9 ; Adhesive capsulitis of left shoulder M75.02 ; Venous stasis I87.8 and Mixed hyperlipidemia E78.2 Assessments Encounter Date Diagnosis (ICD Code) Assessment Notes T reatment Notes Treatment Clinical Notes 01/17/2025 Hearing loss, bilateral (ICD-10 - H91.93) He has hearing aids but was not wearing them today. He will bring them next time he comes in to see if there are working properly. 01/17/2025 Ischemic heart disease (ICD-10 - I25.9) He has a history of coronary artery disease when he was living in the [facility] but I do not have the records. They will be requested again. He has been having some chest pains lately of indeterminate cause. An echocardiogram showed some anteroseptal hypokinesis. I will order a stress test. His blood pressure needs better control and I will increase the metoprolol tartrate. I have referred him to cardiology for definitive diagnosis and treatment. 06/07/2024 Obesity (BMI 30-39.9 ) (ICD-10 - E66.9) His body mass index is 36.7. He weighs 204 pounds.We have discussed weight reduction strategies today. We discussed his elevated blood pressure. He will lose weight at a rate of one half of a pound per week through a diet restricted in fat calories and sodium. 06/07/2024 Lumbar back pain (ICD-10 - M54.50) This has been a low-grade chronic pain but recently has exacerbated. Plain x-rays of the area have been requested. He may need an MRI. I have referred him to rehabilitation medicine and pain management. He should have physical therapy and consider injections of analgesics. He will avoid heavy lifting and undue exertion. 07/13/2024 Former smoker (ICD-1 0 - Z87.891) He stopped smoking in 2007. We made a plan to prevent relapse in times of stress and illness. 07/13/2024 Lumbar back pain (ICD-10 - M54.50) The [...] if it remains at this level 08/10/2024 Lumbar back pain (ICD-10 - M54.50) The back pain persists but is slightly better. The gabapentin low-dose gives him mild relief. The gabapentin was increased. The dexamethasone has been discontinued. He will continue to use heat and rest. I have referred him to pain management. 11/28/2024 Essential hypertension (ICD-10 - I10) His blood pressure today is Within normal limits. We have discussed weight reduction and sodium restriction. A repeat visit in several weeks was arranged. His blood pressure will be treated if it remains at this level 11/28/2024 Subconjunctival hemorrhage of left eye (ICD-10 - H11.32) He was reassured that this would resolve. 12/28/2024 Coronary artery disease involving [place] coronary artery of [place] heart without angina pectoris (ICD-10 - I25.10) His old records do not include documentation of a cardiac catheterization but do say that he had disease in his circumflex artery there was noncritical. His current medications were continued including the aspirin. 12/28/2024 Lumbar back pain (ICD-10 - M54.50) 02/13/2025 Deviated nasal septu m (ICD-10 - J34.2) Gave him a prescription for Flonase because of the congestion. If this does not solve the problem he will have a referral to ENT. 02/13/2025 Nasal congestion (ICD-10 - R09.81) I gave him a prescription for Flonase. 06/23/2024 Former smoker (ICD-1 0 - Z87.891) He stopped smoking in 2007. We made a plan to prevent relapse in times of stress and illness. 06/23/2024 Lumbar back pain (ICD-10 - M54.50) This has been a low-grade chronic pain but recently has exacerbated. Plain x-rays of the area have been requested. He may need an MRI. I have referred him to rehabilitation medicine and pain management. He should have physical therapy and consider injections of analgesics. He will avoid heavy lifting and undue exertion.I have prescribed dexamethasone and gabapentin today. A follow-up visit was arranged. 01/17/2025 Essential hypertension (ICD-10 - I10) His blood pressure today is Within normal limits. We have discussed weight reduction and sodium restriction. A repeat visit in several weeks was arranged. His blood pressure will be treated if it remains at this level 06/07/2024 Former smoker (ICD-1 0 - Z87.891) He stopped smoking in 2007. We made a plan to prevent relapse in times of stress and illness. 07/13/2024 Coronary artery disease involving [place] coronary artery of [place] heart without angina pectoris (ICD-10 - I25.10) His old records do not include documentation of a cardiac catheterization but do say that he had disease in his circumflex artery there was noncritical. His current medications were continued including the aspirin. 08/10/2024 Hearing loss, bilateral (ICD-10 - H91.93) He has hearing aids but was not wearing them today. He will bring them next time he comes in to see if there are working properly. 11/28/2024 Hearing loss, bilateral (ICD-10 - H91.93) He has hearing aids but was not wearing them today. He will bring them next time he comes in to see if there are working properly. 12/28/2024 Adhesive capsulitis of left shoulder (ICD-10 - M75.02) I have offered to refer him to orthopedic surgery for injections. He is going to consider it. He may need lysis of the adhesions. 02/13/2025 Adhesive capsulitis of left shoulder (ICD-10 - M75.02) I have offered to refer him to orthopedic surgery for injections. He is going to consider it. He may need lysis of the adhesions. 06/23/2024 Coronary artery disease involving [place] coronary artery of [place] heart without angina pectoris (ICD-10 - I25.10) His old records do not include documentation of a cardiac catheterization but do say that he had disease in his circumflex artery there was noncritical. His current medications were continued including the aspirin. 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 He says he is able to chew and swallow without difficulty. 06/07/2024 Essential hypertension (ICD-10 - I10) His blood pressure today is elevated at 138/72. We have discussed weight reduction and sodium restriction. A repeat visit in several weeks was arranged. His blood pressure will be treated if necessary. 07/13/2024 History of hepatitis C (ICD-10 - Z86.19) He was treated in the past with Epclusa. Lipid function tests have been ordered. 08/10/2024 Edentulous (ICD-10 - K08.109) He was wearing dentures today. He says he is able to chew and swallow without difficulty. 11/28/2024 Edentulous (ICD-10 - K08.109) He was wearing dentures today. He says he is able to chew and swallow without difficulty. 12/28/2024 Obesity (BMI 30-39.9 ) (ICD-10 - E66.9) His body mass index is 36.7. He weighs 204 pounds.We have discussed weight reduction strategies today. We discussed his elevated blood pressure. He will lose weight at a rate of one half of a pound per week through a diet restricted in fat calories and sodium. 02/13/2025 Hearing loss, bilateral (ICD-10 - H91.93) He has hearing aids but was not wearing them today. He will bring them next time he comes in to see if there are working properly. 06/23/2024 Obesity (BMI 30-39.9 ) (ICD-10 - E66.9) His body mass index is 36.7. He weighs 204 pounds.We have discussed weight reduction strategies today. We discussed his elevated blood pressure. He will lose weight at a rate of one half of a pound per week through a diet restricted in fat calories and sodium. 01/17/2025 Mixed hyperlipidemia (ICD-10 - E78.2) His total cholesterol fasting is in range. Current therapy was continued without change. 06/07/2024 Edentulous (ICD-10 - K08.109) He was wearing dentures today. He says he is able to chew and swallow without difficulty. 07/13/2024 Venous stasis (ICD-1 0 - I87.8) His venous stasis changes are mild and do not require therapy at this time. 08/10/2024 Mixed hyperlipidemia (ICD-10 - E78.2) His total cholesterol fasting is in range. Current therapy was continued without change. 11/28/2024 Mixed hyperlipidemia (ICD-10 - E78.2) His total cholesterol fasting is in range. Current therapy was continued without change. 12/28/2024 Former smoker (ICD-1 0 - Z87.891) He stopped smoking in 2007. We made a plan to prevent relapse in times of stress and illness. 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 He says he is able to chew and swallow without difficulty. 06/23/2024 Adhesive capsulitis of left shoulder (ICD-10 - M75.02) I have offered to refer him to orthopedic surgery for injections. He is going to consider it. He may need lysis of the adhesions. 01/17/2025 Obesity (BMI 30-39.9 ) (ICD-10 - E66.9) His body mass index is 37. He weighs 206 pounds.We have discussed weight reduction strategies today. We discussed his elevated blood pressure. He will lose weight at a rate of one half of a pound per week through a diet restricted in fat calories and sodium. 06/07/2024 Mixed hyperlipidemia (ICD-10 - E78.2) His total cholesterol fasting is in range. Current therapy was continued without change. 07/13/2024 Adhesive capsulitis of left shoulder (ICD-10 - M75.02) I have offered to refer him to orthopedic surgery for injections. He is going to consider it. He may need lysis of the adhesions. 08/10/2024 Obesity (BMI 30-39.9 ) (ICD-10 - E66.9) His body mass index is 36.7. He weighs 204 pounds.We have discussed weight reduction strategies today. We discussed his elevated blood pressure. He will lose weight at a rate of one half of a pound per week through a diet restricted in fat calories and sodium. 11/28/2024 Obesity (BMI 30-39.9 ) (ICD-10 - E66.9) His body mass index is 36.7. He weighs 204 pounds.We have discussed weight reduction strategies today. We discussed his elevated blood pressure. He will lose weight at a rate of one half of a pound per week through a diet restricted in fat calories and sodium. 12/28/2024 Subconjunctival hemorrhage of left eye (ICD-10 - H11.32) This is completely resolved 02/13/2025 Mixed hyperlipidemia (ICD-10 - E78.2) His total cholesterol fasting is in range. Current therapy was continued without change. 06/23/2024 Venous stasis (ICD-1 0 - I87.8) His venous stasis changes are mild and do not require therapy at this time. 01/17/2025 Coronary artery disease involving [place] coronary artery of [place] heart without angina pectoris (ICD-10 - I25.10) His old records do not include documentation of a cardiac catheterization but do say that he had disease in his circumflex artery there was noncritical. His current medications were continued including the aspirin. 06/07/2024 Hearing loss, bilateral (ICD-10 - H91.93) He has hearing aids but was not wearing them today. He will bring them next time he comes in to see if there are working properly. 07/13/2024 Obesity (BMI 30-39.9 ) (ICD-10 - E66.9) [...] may need lysis of the adhesions. 11/28/2024 Venous stasis (ICD-1 0 - I87.8) His venous stasis changes are mild and do not require therapy at this time. 02/13/2025 Obesity (BMI 30-39.9 ) (ICD-10 - E66.9) His body mass index is 37. He weighs 206 pounds.We have discussed weight reduction strategies today. We discussed his elevated blood pressure. He will lose weight at a rate of one half of a pound per week through a diet restricted in fat calories and sodium. 06/23/2024 Mixed hyperlipidemia (ICD-10 - E78.2) His total cholesterol fasting is in range. Current therapy was continued without change. 01/17/2025 Venous stasis (ICD-1 0 - I87.8) His venous stasis changes are mild and do not require therapy at this time. 06/07/2024 Adhesive capsulitis of left shoulder (ICD-10 - M75.02) I have offered to refer him to orthopedic surgery for injections. He is going to consider it. He may need lysis of the adhesions. 07/13/2024 Mixed hyperlipidemia (ICD-10 - E78.2) His total cholesterol fasting is in range. Current therapy was continued without change. 08/10/2024 Former smoker (ICD-1 0 - Z87.891) He stopped smoking in 2007. We made a plan to prevent relapse in times of stress and illness. 11/28/2024 Adhesive capsulitis of left shoulder (ICD-10 - M75.02) I have offered to refer him to orthopedic surgery for injections. He is going to consider it. He may need lysis of the adhesions. 02/13/2025 Coronary artery disease involving [place] coronary artery of [place] heart without angina pectoris (ICD-10 - I25.10) His old records do not include documentation of a cardiac catheterization but do say that he had disease in his circumflex artery there was noncritical. His current medications were continued including the aspirin. 01/17/2025 Adhesive capsulitis of left shoulder (ICD-10 - M75.02) I have offered to refer him to orthopedic surgery for injections. He is going to consider it. He may need lysis of the adhesions. 06/07/2024 Coronary artery disease involving [place] coronary artery of [place] heart without angina pectoris (ICD-10 - I25.10) His old records do not include documentation of a cardiac catheterization but do say that he had disease in his circumflex artery there was noncritical. His current medications were continued including the aspirin. 07/13/2024 Essential hypertension (ICD-10 - I10) His blood pressure today is in the normal range. We have discussed weight reduction and sodium restriction. A repeat visit in several weeks was arranged. His blood pressure will be treated if necessary. 08/10/2024 Coronary artery disease involving [place] coronary artery of [place] heart without angina pectoris (ICD-10 - I25.10) His old records do not include documentation of a cardiac catheterization but do say that he had disease in his circumflex artery there was noncritical. His current medications were continued including the aspirin. 11/28/2024 Coronary artery disease involving [place] coronary artery of [place] heart without angina pectoris (ICD-10 - I25.10) His old records do not include documentation of a cardiac catheterization but do say that he had disease in his circumflex artery there was noncritical. His current medications were continued including the aspirin. 02/13/2025 Former smoker (ICD-1 0 - Z87.891) He stopped smoking in 2007. We made a plan to prevent relapse in times of stress and illness. 01/17/2025 Former smoker (ICD-1 0 - Z87.891) He stopped smoking in 2007. We made a plan to prevent relapse in times of stress and illness. 11/28/2024 Former smoker (ICD-1 0 - Z87.891) [...] him to pain management. Plan Of Treatment Pending Test Test Name Order Date Echocardiogram 11/28/2024 Stress Test 11/28/2024 ECG 12 lead EKG 01/12/2024 ECG 12 lead EKG 11/28/2024 MR lumbar spine wo con 01/11/2025 XR chest 4 views 01/12/2024 XR hips NIA min 3V 11/28/2024 XR lumbar spine 2-3V 11/28/2024 XR sacrum coccyx min 2V 11/28/2024 Next Appt Details Provider Name:Bryant Orlando , 03/27/2025 02:30:00 PM, [address] [place] [address] [address], [place], [id number], Provider Name:Bryant Orlando , 01/21/2026 02:30:00 PM, [address] [place] [address] [address], [place], [id number], Insurance Providers Payer Name Payer Address Payer Phone Subscriber Number Group Number Insured Name Patient Relationship to Insured Coverage Start Date Coverage End Date MEDICARE NGS [address] [place] [address] [id number] Romeo Eldridge Self - patient is the insured [place] [address] [place] [id number] Romeo Eldridge Self - patient is the insured Medical (General) History Medical History History ICD Code edentulous Constipation Hyperlipidemia Obesity Adhesive capsulitis left shoulder 2022 Venous stasis lower extremities Left second rib deformity History of hepatitis C History of unstable angina Hearing loss History of substance use disorder Methadone maintenance Esophageal varices Colonoscopy 2022 Former smoker 2007 History of hypertension Nasal septum deviates to left causing ob struction Surgical History Surgery Date(Month/Year) No history Attempted colonoscopy, preparation inade quate 2022 Negative upper endoscopy in [facility] 2022 Hospitalization History Reason Date(Month/Year) No history
== END ==
LOC: HO.CARD 09:17
PROVIDERS: PCP Internal Medicine Medical Oncology; Visit Provider Internal Medicine Medical Oncology
DX: I25.10 Atherosclerotic heart disease of native coronary artery without angina pectoris (principal); R07.9 Chest pain, unspecified
CPT/HCPCS: 93017

== ENCOUNTER → 2025-03-13 09:24 | Outpatient (BNV) | payer MEDICARE, MEDICAID, SELFPAY | PROVIDERS: PCP Internal Medicine Medical Oncology | DX: I49.1 Atrial premature depolarization (principal); I49.3 Ventricular premature depolarization | CPT/HCPCS: 93016; 93018 ==

== ENCOUNTER → 2025-04-18 09:37 | Outpatient (REF) | payer MEDICARE, MEDICAID, SELFPAY ==
--- OUTSIDE RECORDS SUMMARY | 2024-08-10 06:45 | XMS_ITS ---
Author Organization Bryant Orlando III, MD Address [address] [place] [address] Care Team Providers Care Boat Canvas Maker Installer Name Role Phone Dr. Bryant Orlando III Primary Care Provider Allergies Allergen (clinical drug ingredient) Drug/Non Drug [...] Date Provider Diagnosis Bryant Orlando III, MD [address] [place] [address] ISHMAEL Quinn [place], [place] [phone] 08/10/2024 Bryant Orlando Lumbar back pain M54 .50 ; Essential hypertension I10 ; Hearing loss, bilateral H91.93 ; Edentulous K08.109 ; Mixed hyperlipidemia E78.2 ; Obesity (BMI 30-39.9) E66.9 ; Adhesive capsulitis of left shoulder M75.02 ; Former smoker Z87.891 and Coronary artery disease involving [place] coronary artery of [place] heart without angina pectoris I25.10 Assessments Encounter [...] and illness. 08/10/2024 Coronary artery disease involving [place] coronary artery of [place] heart without angina pectoris (ICD-10 - I25.10) [...] Provider Name:Bryant Orlando , 07/03/2025 02:45:00 PM, [address] [place] [address] ISHMAEL SUTTON, [place], [phone], Provider Name:Bryant Orlando , 01/21/2026 02:30:00 PM, [address] [place] [address] ISHMAEL SUTTON, [place], [phone], Progress Notes * Romeo ELDRIDGEDOB:1955 (69 yo M)Acc No.[id number]:08/10/2024 Progress Notes Patient: Romeo MEJIA Provider: Neida Orlando MD :1955 A ge:69 Y S ex:Male Date:08/10/2024 Address:[address] [place] [address] [id number] Subjective: * Chief Complaints: * H ypertensionHearing [...] Surgical History: N egative upper endoscopy in [facility] ttempted colonoscopy, preparation inadequate 2022No history [...] in [facility]. 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 He has no mormon objection to blood transfusion. He has no children. He is not currently working. 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 {'Living Situation': 'Lives with [place]', 'Work Status': 'Retired'}. * Medications: T akingLisinopril [...] 9 . C oronary artery disease involving [place] coronary artery of [place] heart without angina pectoris - I25.10 N [...] 08/10/2024 Generated for Terelli shanti/Sonal/eTransmitting on: 1 11:28 AM EDT History and Physical Notes * HPI (History [...]
--- OUTSIDE RECORDS SUMMARY | 2024-09-01 11:11 | XMS_ITS ---
Author Organization Bryant Orlando III, MD Address [address] [place] [address] Care Team Providers Care Pipe Smoking Machine Offbearer Name Role Phone Dr. Bryant Orlando III Primary Care Provider [phone] REASON FOR VISIT Rx refill request Medications Medication SIG (Take, Route, Fr equency, Duration) Notes Start Date End Date Status Gabapentin 300 MG 1 capsule Orally thr ee times a day for 90 days 07/13/2024 Active Social History Sex Assigned At : Social History Observation Description Sex Assigned At Male Encounters Encounter Location Date Provider Diagnosis Bryant Orlando III, MD [address] [place] [address] [place] [address] 09/01/2024 Bryant Orlando Plan Of Treatment Medication Medication Name Sig Start Date Stop Date Notes Gabapentin 300 MG 1 capsule Orally thr ee times a day for 90 days 07/13/2024 Next Appt Details Provider Name:Bryant Orlando , 07/03/2025 02:45:00 PM, [address] [place] [address] [place], [address], Provider Name:Bryant Orlando , 01/21/2026 02:30:00 PM, [address] [place] [address] [place], [address], Progress Notes * Romeo ELDRIDGEDOB:1955 (69 yo M)Acc No.[id number]:09/01/2024 Patient: Romeo MEJIA :1955 A ge:69 Y S ex:Male Address:[address] [place] [id number] * Refills Refill Gabapentin Capsule, 300 MG, Orally, 270 Capsule, 1 capsule, three times a day, 90 days, Refills=3 * true * Date: Generated for Sid moser/Sonal/Fabiitting on: 11:27 AM EDT
--- OUTSIDE RECORDS SUMMARY | 2024-11-09 06:45 | XMS_ITS ---
Author Organization Bryant Orlando III, MD Address [address] [place] [address] Care Team Providers Care Customer Agent Name Role Phone Dr. Bryant Orlando III [...] Date Provider Diagnosis Bryant Orlando III, MD [address] [place] [address] [place] [address] 11/09/2024 Bryant Orlando Plan Of Treatment Medication [...] Provider Name:Bryant Orlando , 07/03/2025 02:45:00 PM, [address] [place] [address] [address], [place], [address], Provider Name:Bryant Orlando , 01/21/2026 02:30:00 PM, [address] [place] [address] [address], [place], [address], Progress Notes * AMIRA RomeoDOB:1955 (70 yo M)Acc No.[id number]:11/09/2024 Progress Notes Patient: Romeo MEJIA Provider: Neida Orlando MD :1955 A ge:69 Y S ex:Male Date:11/09/2024 Address:[address] [place] [address] [facility] Subjective: * Chief Complaints: * 1 . [...] Surgical History: N egative upper endoscopy in [facility] 2022, Attempted colonoscopy, preparation inadequate 2022, [...] ormer smoker H e was born in [facility]. 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 He has no confucianism objection to blood transfusion. He has no children. He is not currently working. He is involved in a methadone maintenance program in [facility]. {'Living Situation': 'Lives with [place]', 'Work Status': 'Retired'}. * Medications: T aking [...] 0 11/09/2024 Generated for Sid moser/Sonal/Fabiitting on: 11:28 AM EDT History and Physical Notes [...]
--- OUTSIDE RECORDS SUMMARY | 2024-11-28 07:00 | XMS_ITS ---
Author Organization Bryant Orlando III, MD Address [address] [facility] [place] [address] Care Team Providers Care Electroencephalogram Technologist Name Role Phone Dr. Bryant Orlando III Primary Care Provider [phone] Allergies Allergen (clinical drug ingredient) Drug/Non Drug Allergy documented on EMR Reaction Allergy Type Onset Date Status No Known Drug Allergy Unknown Drug Allergy Active Results Component Value Reference Range Notes XR hips NIA min 3V (Not yet reviewed by provider) Interpretation: Performing Lab: Notes/Report: [address] [address] XRay Report Signed Patient: Romeo Eldridge MR#: [id number] : 1955 Acct:[id number] Age/Sex: 69 / M ADM Date: 11/28/24 Loc: HO.CARD Attending Dr: Bryant Orlando MD Ordering Physician: Bryant Orlando MD Date of Service: 11/28/24 Procedure(s): XR hips NIA min 3V Accession Number(s): [id number] cc: Bryant Orlando MD CLINICAL HISTORY: bilat. hip pain 4 view, pelvis and bilateral hips Comparison: None Findings: Moderate osteoarthritis of the right hip. Iduqrwqi-ta-avwvgj osteoarthritis of the left hip. Mild deformities of the imaged femurs appear old/chronic including flattening of the left femoral head. Portions of the pelvis obscured without definite acute displaced fracture. Moderate stool burden in the utkdp-vi-dewy. IMPRESSION: Osteoarthritis of the both hips, left worse than right. This document has been electronically signed by: Jaime Ramirez MD on 11/28/2024 20:15:18 Dictated By: Jaime Ramirez MD Signed By: <Electronically signed by Jaime Ramirez MD in OV> 11/28/242014 DD/ 14 TD/TT: 11/28/242014 [employer] Dispatcher: [address] [address] XRay Report Signed Patient: Romeo Eldridge R#: [id number] : 1955 Acct:[id number] Age/Sex: 69 / M ADM Date: 11/28/24 Loc: HO.CARD Attending Dr: Bryant Orlando MD Ordering Physician: Bryant Orlando MD Date of Service: 11/28/24 Procedure(s): XR hip s NIA min 3V Accession Number(s): [id number] cc: Bryant Orlando MD CLINICAL HISTORY: bi lat. hip pain 4 view, pelvis and b ilateral hips Comparison: None Findings: Moderate osteoarthri tis of the right hip. Fzvrkhlo-zw-glohbg osteoarthritis of th e left hip. Mild deformities of the imaged femurs appear old/chronic i ncluding flattening of the left femoral head. Portions of the pelvis obscur ed without definite acute displaced fracture. Moderate stool burde n in the ghbhw-ev-uiyy. IMPRESSION: Osteoarthritis of th e both hips, left worse than right. This document has be en electronically signed by: Jaime Ramirez MD on 11/28/2024 20:15:18 Dictated By: Jaime Ramirez MD Signed By: <Electron ically signed by Jaime Ramirez MD in OV> 11/28/242014 DD/ 14 TD/TT: 11/28/242014 [employer] Dispatcher: XR lumbar spine 2-3V (Not ye t reviewed by provider) Interpretation: Performing Lab: Notes/Report: [address] [address] XRay Report Signed Patient: Romeo Eldridge MR#: [id number] : 1955 Acct:[id number] Age/Sex: 69 / M ADM Date: 11/28/24 Loc: HO.CARD Attending Dr: Bryant Orlando MD Ordering Physician: Bryant Orlando MD Date of Service: 11/28/24 Procedure(s): XR lumbar spine 2-3V Accession Number(s): [id number] cc: Bryant Orlando MD CLINICAL HISTORY: lumbar [...] Ramirez MD Signed By: <Electronically signed by Jamie Ramirez MD in OV> 11/28/242012 DD/ 11 TD/TT: 11/28/242011 [employer] Dispatcher: [place] [address] XRay Report Signed Patient: Romeo Eldridge R#: [id number] : 1955 Acct:[id number] Age/Sex: 69 / M ADM Date: 11/28/24 Loc: HO.CARD Attending Dr: Bryant Orlando MD Ordering Physician: Bryant Orlando MD Date of Service: 11/28/24 Procedure(s): XR lum bar spine 2-3V Accession Number(s): [id number] cc: Bryant Orlando MD CLINICAL HISTORY: joyce [...] in OV> 11/28/242012 DD/ 11 TD/TT: 11/28/242011 [employer] Dispatcher: XR sacrum coccyx min 2V (Not yet reviewed by provider) Interpretation: Performing Lab: Notes/Report: [address] [address] XRay Report Signed Patient: Romeo Eldridge MR#: [id number] : 1955 Acct:[id number] Age/Sex: 69 / M ADM Date: 11/28/24 Loc: [place] Attending Dr: Bryant Orlando MD Ordering Physician: Bryant Orlando MD Date of Service: 11/28/24 Procedure(s): XR sacrum coccyx min 2V Accession Number(s): [id number] cc: Bryant Orlando MD CLINICAL HISTORY: PAIN [...] in OV> 11/28/242013 DD/ 12 TD/TT: 11/28/242012 [employer] Dispatcher: [address] [address] XRay Report Signed Patient: Romeo Eldridge MR#: [id number] : 1955 Acct:[id number] Age/Sex: 69 / M ADM Date: 11/28/24 Loc: [place] Attending Dr: Bryant Orlando MD Ordering Physician: Bryant Orlando MD Date of Service: 11/28/24 Procedure(s): XR sac rum coccyx min 2V Accession Number(s): [id number] cc: Bryant Orlando MD CLINICAL HISTORY: PAIN [...] in OV> 11/28/242013 DD/ 12 TD/TT: 11/28/242012 [employer] Dispatcher: REASON FOR VISIT My left eye is [...] Date Provider Diagnosis Bryant Orlando III, MD [address] [place] [address] DR ABREU, DAVID [address] 11/28/2024 Bryant Orlando Subconjunctival hemorrhage of left eye H11.32 ; Essential hypertension I10 ; Hearing loss, bilateral H91.93 ; Edentulous K08.109 ; Mixed hyperlipidemia E78.2 ; Obesity (BMI 30-39.9) E66.9 ; Venous stasis I87.8 ; 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 11/28/2024 Coronary artery disease involving [place] coronary artery [...] Provider Name:Bryant Orlando , 07/03/2025 02:45:00 PM, [address] [place] [address] [address], [place], [address], Provider Name:Bryant Orlando , 01/21/2026 02:30:00 PM, [address] [place] [address] [place], [place], [address], Progress Notes * Loreto ELDRIDGE:1955 (69 yo M)Acc No.[id number]:11/28/2024 Progress Notes Patient: Romeo MEJIA Provider: Neida Orlando MD :1955 A ge:69 Y S ex:Male Date:11/28/2024 Address:[address] [place], [place] [phone] Subjective: * Chief Complaints: * M y [...] 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 An echocardiogram will be done to evaluate [...] Surgical History: N egative upper endoscopy in [facility] ttempted colonoscopy, preparation inadequate 2022No history [...] T obacco Use/Smoking P pierre is a [facility] smoker H e was born in [facility]. 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 He has no adventist objection to blood transfusion. He has no children. He is not currently working. 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 {'Living Situation': 'Lives with [place]', 'Work Status': 'Retired'}. * Medications: T akingGabapentin [...] MD Date: 0 11/28/2024 Generated for Terelli shanti/Fakarmeng/eTransmitting on: 1 11:27 AM EDT History and Physical Notes * [...]
--- OUTSIDE RECORDS SUMMARY | 2024-12-26 12:45 | XMS_ITS ---
Author Organization Bryant Orlando III, MD Address [address] [place] [address] Care Team Providers Care Pneumatic Tester Mechanic Name Role Phone Dr. Bryant rOlando III Primary Care Provider REASON FOR VISIT Follow up Social History Sex Assigned At : Social History Observation Description Sex Assigned At Male Encounters Encounter Location Date Provider Diagnosis Bryant Orlando III, MD [address] [place] [address] [place] [address] 12/26/2024 Bryant Orlando Plan Of Treatment Next Appt Details Provider Name:Bryant Orlando , 07/03/2025 02:45:00 PM, [address] [place] [address] [place], [address], Provider Name:Bryant Orlando , 01/21/2026 02:30:00 PM, [address] [place] [address] [place], [address], Progress Notes * Romeo ELDRIDGEDOB:1955 (70 yo M)Acc No.[id number]:12/26/2024 Progress Notes Patient: Romeo MEJIA Provider: Neida Orlando MD :1955 A ge:69 Y S ex:Male Date:12/26/2024 Address: [address] [place] Subjective: * Chief Complaints: * 1 . [...] 12/26/2024 Generated for Sid moser/Sonal/Angel on: 1 11:27 AM EDT
--- OUTSIDE RECORDS SUMMARY | 2024-12-28 07:45 | XMS_ITS ---
Author Organization Bryant Orlando III, MD Address [address] [place] [address] [place] [address] Care Team Providers Care Label Stamper Name Role Phone Dr. 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, Low back muscle spasm, [...] Date Provider Diagnosis Bryant Orlando III, MD [address] [place] [address] [place] [address] 12/28/2024 Bryant Orlando Lumbar back pain M54 .50 ; Coronary artery disease involving [place] coronary artery of [place] heart without angina pectoris I25.10 ; Adhesive capsulitis of left shoulder M75.02 ; Obesity (BMI 30-39.9) E66.9 ; Former smoker Z87.891 and Subconjunctival hemorrhage of left eye H11.32 Assessments Encounter Date Diagnosis (ICD Code) Assessment Notes T reatment Notes Treatment Clinical Notes 12/28/2024 Lumbar back pain (ICD-10 - M54.50) 12/28/2024 Coronary artery disease involving [place] coronary artery of [place] heart without angina pectoris (ICD-10 - I25.10) [...] lumbar b ack pain evaluate and treatment, [facility] Next Appt Details Follow Up: as scheduled for annual exam, Reason: annual exam Provider Name:Bryant Orlando , 07/03/2025 02:45:00 PM, [address] [place] [address] [address], [place], [phone], Provider Name:Bryant Orlando , 01/21/2026 02:30:00 PM, [address] [place] [address] [address], [place], [phone], Progress Notes * Romeo ELDRIDGEDOB:1955 (69 yo M)Acc No.[id number]:12/28/2024 Progress Notes Patient: Romeo MEJIA Provider: Neida Orlando MD :1955 A ge:69 Y S ex:Male Date:12/28/2024 Address:[address] [place], [place] [id number] Subjective: * Chief Complaints: * R equest [...] cyclobenzaprine. He has requested a referral to [facility] for a personal companion. Questions H ave you had any new [...] Surgical History: N egative upper endoscopy in [facility] ttempted colonoscopy, preparation inadequate 2022No history [...] ormer smoker H e was born in [facility]. 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 He has no protestant objection to blood transfusion. He has no children. He is not currently working. 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 {'Living Situation': 'Lives with [place]', 'Work Status': 'Retired'}. * Medications: T akingGabapentin [...] Assessment: 1. C oronary artery disease involving [place] coronary artery of [place] heart without angina pectoris - I25.10 (Primary) [...] 0 12/28/2024 Generated for Sid moser/Faxing/eTransmitting on: 1 11:28 AM EDT History and [...] kaushik 12/28/2024 Bryant Orlando [facility] pain evaluate and treatment
--- OUTSIDE RECORDS SUMMARY | 2025-01-17 10:30 | XMS_ITS ---
Author Organization Bryant Orlando III, MD Address [address] [place] [address] Care Team Providers Care Assembly Leader Name Role Phone Dr. Bryant Orlando III [...] Internal M edicine Referred Provider Thai Mistry [facility], Cardiology Referred Provider Specialty Cardiology General Notes Vera Samirjaya ASMPapi 06/2024 02:27:50 PM > Faxed referral to [facility] [place] [facility] Referral Priority Routine REASON FOR VISIT [...] Date Provider Diagnosis Bryant Orlando III, MD [address] [place] [address] [place] [address] 01/17/2025 Bryant Orlando Ischemic heart disea se I25.9 ; Hearing loss, bilateral H91.93 ; Essential hypertension I10 ; Edentulous K08.109 ; Mixed hyperlipidemia E78.2 ; Obesity (BMI 30-39.9) E66.9 ; Coronary artery disease involving [place] coronary artery of [place] heart without angina pectoris I25.10 ; Venous stasis I87.8 ; Adhesive capsulitis of left shoulder M75.02 and Former smoker Z87.891 Assessments Encounter Date Diagnosis (ICD Code) Assessment Notes Treat ment Notes Treatment Clinical Notes 01/17/2025 Ischemic heart disease (ICD-10 - I25.9) He has a history of coronary artery disease when he was living in the [facility] but I do not have the records. [...] and sodium. 01/17/2025 Coronary artery disease involving [place] coronary artery of [place] heart without angina pectoris (ICD-10 - I25.10) [...] Details 01/19/2025 01/19/2025, Consult and Treat, Cardiology [facility] Next Appt Details Follow Up: 4 Weeks, Reason: OV Provider Name:Bryant Orlando , 07/03/2025 02:45:00 PM, [address] [place] [address] DR, [address], [place], [address], Provider Name:Brynat Orlando , 01/21/2026 02:30:00 PM, [address] [place] [address] [address], [place], [address], Progress Notes * Romeo ELDRIDGEDOB:1955 (69 yo M)Acc No.[id number]:01/17/2025 Progress Notes Patient: Romeo MEJIA Provider: Neida Orlando MD :1955 A ge:69 Y S ex:Male Date:01/17/2025 Address:[address] [place] [address] [id number] Subjective: * Chief Complaints: * A nnual [...] History: N egative upper endoscopy in [facility] ttempted colonoscopy, preparation inadequate 2022No history [...] ormer smoker H martir was born in [facility]. 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 He has no cheondoism objection to blood transfusion. He has no children. He is not currently working. 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 {'Living Situation': 'Lives with [place]', 'Work Status': 'Retired'}. * Medications: T akingGabapentin [...] disease when he was living in the [facility] but I do not have the records. [...] 7 . C oronary artery disease involving [place] coronary artery of [place] heart without angina pectoris - I25.10 N [...] capsule, Orally, Once a day. Referral To:Cardiology [facility] Cardiology Reason:Consult and Treat * Procedure Codes: [...] Orlando MD Date: 0 01/17/2025 Generated for Lango shanti/Sonal/eTransmitting on: 1 11:27 AM EDT History and [...] Provider Referred Provider Not kaushik 01/19/2025 [facility], Car diology Consult and Treat
--- OUTSIDE RECORDS SUMMARY | 2025-02-13 10:45 | XMS_ITS ---
Author Organization Bryant Orlando III, MD Address [address] [facility] [place] [address] Care Team Providers Care Hedis Review Nurse Name Role Phone Dr. Bryant Orlando III [...] Problem Status W/U Status Risk Notes Problem 386556304 Deviated nasal septum (J34.2) Active confirmed Gave him a prescription for Flonase because of the congestion. If this does not solve the problem he will have a referral to ENT. Problem 40964471 Nasal congestion (R09.81) Active confirmed I gave him a prescription for Flonase. Vital Signs Temperature 97.3 degrees Fahrenheit 02/14/20 25 Blood pressure systolic 148 mm Hg 02/14/20 25 Blood pressure diastolic 82 mm Hg 025 Heart Rate 65 /min 02/13/2025 Height 62.5 in 02/13/2025 Weight 209 lbs 02/13/2025 BMI 37.61 kg/m2 02/13/2025 Encounters Encounter Location Date Provider Diagnosis Bryant Orlando III, MD [address] [place] [address] [place] [address] 02/13/2025 Bryant Orlando Deviated nasal septu m J34.2 ; Nasal congestion R09.81 ; Adhesive capsulitis of left shoulder M75.02 ; Hearing loss, bilateral H91.93 ; Edentulous K08.109 ; Mixed hyperlipidemia E78.2 ; Obesity (BMI 30-39.9) E66.9 ; Coronary artery disease involving [place] coronary artery of [place] heart without angina pectoris I25.10 ; Former [...] and sodium. 02/13/2025 Coronary artery disease involving [place] coronary artery of [place] heart without angina pectoris (ICD-10 - I25.10) [...] Name:Bryant Orlando , 07/03/2025 02:45:00 PM, [address] [facility] [address], [place], [address], Provider Name:Bryant Orlando , 01/21/2026 02:30:00 PM, [address] [facility] [address], [place], [address], Progress Notes * Romeo ELDRIDGEDOB:1955 (69 yo M)Acc No.[id number]:02/13/2025 Progress Notes Patient: Romeo MEJIA Provider: Neida Orlando MD :1955 A ge:69 Y S ex:Male Date:02/13/2025 Address:[address] [place] [address] [address] [place]ts [facility] Subjective: * Chief Complaints: * H ypertensionHearing [...] History: N egative upper endoscopy in [facility] ttempted colonoscopy, preparation inadequate 2022No history [...] ormer smoker H martir was born in [facility]. 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 He has no tenriism objection to blood transfusion. He has no children. He is not currently working. 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 {'Living Situation': 'Lives with [place]', 'Work Status': 'Retired'}. * Medications: T akingGabapentin [...] 8 . C oronary artery disease involving [place] coronary artery of [place] heart without angina pectoris - I25.10 N [...] 02/13/2025 Generated for Sid moser/Sonal/Fabiitting on: 1 11:28 AM EDT History and [...]
--- OUTSIDE RECORDS SUMMARY | 2025-02-27 06:12 | XMS_ITS ---
Author Organization Bryant Orlando III, MD Address [address] [place] [address] Care Team Providers Care Nursing Consultant Name Role Phone Dr. Bryant Orlando III Primary Care Provider REASON FOR VISIT Clearance letter Social History Sex Assigned At : Social History Observation Description Sex Assigned At Male Encounters Encounter Location Date Provider Diagnosis Bryant Orlando III, MD [address] [place] [address] [place] [address] 02/27/2025 Bryant Orlando Plan Of Treatment Next Appt Details Provider Name:Bryant Orlando , 07/03/2025 02:45:00 PM, [address] [place] [address] [place], [address], Provider Name:Bryant Orlando , 01/21/2026 02:30:00 PM, [address] [place] [address] [place], [address], Progress Notes * AMIRA RomeoDOB:1955 (69 yo M)Acc No.[id number]:02/27/2025 Patient: Romeo MEJIA :1955 A ge:69 Y S ex:Male Address: [place] [address] * true * Date: Generated for Printi ng/Faxing/eTransmitting on: 11:27 AM EDT
--- OUTSIDE RECORDS SUMMARY | 2025-03-27 10:30 | XMS_ITS ---
Author Organization Bryant Orlando III, MD Address [address] [place] [address] Care Team Providers Care Project Management Instructor Name Role Phone Dr. Bryant Orlando [...] Date Provider Diagnosis Bryant Orlando III, MD [address] [place] [address] DR [place], DAVID [phone] 03/27/2025 Bryant Orlando Coronary artery dise ase involving [place] coronary artery of [place] heart without angina pectoris I25.10 ; Former smoker Z87.891 ; Obesity (BMI 30-39.9) E66.9 ; Essential hypertension I10 ; Hearing loss, bilateral H91.93 ; Edentulous K08.109 and Mixed hyperlipidemia E78.2 Assessments Encounter Date Diagnosis (ICD Code) Assessment Notes Treat ment Notes Treatment Clinical Notes 03/27/2025 Coronary artery disease involving [place] coronary artery of [place] heart without angina pectoris (ICD-10 - I25.10) [...] Provider Name:Bryant Orlando , 07/03/2025 02:45:00 PM, [address] [place] [address] ISHMAEL SUTTON, [place], [phone], Provider Name:Bryant Orlando , 01/21/2026 02:30:00 PM, [address] [place] [address] [place], [phone], Progress Notes * Romeo ELDRIDGEDOB:1955 (69 yo M)Acc No.[id number]:03/27/2025 Progress Notes Patient: Romeo MEJIA Provider: Neida Orlando MD :1955 A ge:69 Y S ex:Male Date:03/27/2025 Address:[address] [place] [address] [id number] Subjective: * Chief Complaints: * H ypertensionHearing [...] [facility]. 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 He has no hindu objection to blood transfusion. He has no children. He is not currently working. 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 {'Living Situation': 'Lives with [place]', 'Work Status': 'Retired'}. * Medications: T akingGabapentin [...] Assessment: 1. C oronary artery disease involving [place] coronary artery of [place] heart without angina pectoris - I25.10 (Primary) [...] Date: 1 Generated for Printi ng/Faxing/eTransmitting on: 11:29 AM EDT History and Physical Notes * [...]
--- NOTE | 2025-04-18 | CA_ITS ---
Acquisition Time: 2025-04-18 09:56:36 Total Exercise Time: 00:07:16 Test Indications: CAD Medications: METROPOLOL Protocol: YOLANDA Max HR: 131 BPM 87% of Pred: 150 BPM Max BP: 142/80 mmHG Max Work Load: 8.9 METS Exercise stress test with exercise 7 mins 16 secs of Yolanda Protocol, achieving 86% MPHR, with reports of 6/10 left sided sharp chest pain and SOB, without any arrythmias, with normotensive response to exercise. Without any EKG changes meeting criteria for ischemia. In recovery, chest pain slowly resolved and breathing returned to baseline. Nuclear images pending. Test reviewed with Dr. Dasilva. Referred By: Bryant Orlando Electronically Signed By: Avinash Judge
--- NOTE | ~2025-04-18 | NM_ITS ---
EXERCISE MYOCARDIAL PERFUSION STUDY INDICATION: Coronary artery disease TECHNIQUE: The patient was brought in for an exercise perfusion study on 04/18/2025. Patient performed exercise as per Steffen protocol and was injected 35 mCi of sestamibi once target heart rate was achieved. Images were obtained using the SPECT gamma camera interlaced with the gating device. Images were obtained in supine position. Resting perfusion study was performed on 04/19/2025. Patient was administered 35 mCi of sestamibi intravenously at rest. Images were then obtained in supine position. Total DLP 157 mGy-cm. Images were processed with the software and compared side to side in short axis, horizontal long axis and vertical long axis views. FINDINGS: Raw aquisition reviewed. Arms by the patient's side. The stress perfusion study showed no significant perfusion abnormality. Both uncorrected as well as CT attenuation corrected images were reviewed. The gated study shows normal LV systolic function with calculated LVEF of 52%, but visually higher. LV cavity is normal in size. The gated study shows normal wall thickening and contraction of segments. Resting study shows the no significant perfusion abnormality. Gating at rest reveals normal wall motion with ejection fraction at 68%. The findings are consistent with no clear reversible or fixed perfusion abnormality. NM/NM liam perf SPECT rest & str IMPRESSION: 1. Myocardial perfusion imaging study shows normal myocardial perfusion. 2. Gated LVEF is 52% during stress but visually higher. 68% during rest. 3. Transient ischemic dilatation not present. EKG component of the test reported separately. Electronically signed by: Denis Dasilva MD 04/19/2025 04:15 PM EDT
--- OUTSIDE RECORDS SUMMARY | 2025-04-18 11:28 | XMS_ITS | Patient Health Record ---
Author Organization Bryant Orlando III, MD Address [address] [place] [address] Care Team Providers Care Recycle Coordinator Name Role Phone Dr. Bryant Orlando III Primary Care Provider Allergies Allergen (clinical drug ingredient) Drug/Non Drug Allergy documented on EMR Reaction Allergy Type Onset Date Status No Known Drug Allergy Unknown Drug Allergy Active Results Component Value Reference Range Notes Complete Blood Count Auto Di ff Reviewed date:05/15/2024 07:37:32 AM Interpretation: Performing Lab:[facility], [address] [place] [id number] Notes/Report: White Blood Count 6.9 4.8-10.8 X10*3/uL [...] NRBC Abs Auto 0.000 0.0-0.012 X10*3/uL Comprehensive [place]. Panel Fa st Reviewed date:05/15/2024 07:37:32 AM Interpretation: Performing Lab:[facility], [address] [place] [phone] Notes/Report: Sodium 139 135-145 mmol/L Potassium 4.3 [...] Panel Reviewed date:05/15/2024 07:37:32 AM Interpretation: Performing Lab:[facility], [address] [place] [phone] Notes/Report: Triglycerides 209 <150 mg/dL Desirable Triglyceride: [...] date:06/27/2024 04:07:46 PM Interpretation: Performing Lab: Notes/Report: [address] [address] XRay Report Signed Patient: Romeo Eldridge MR#: [id number] : 1955 Acct:[id number] Age/Sex: 69 / M ADM Date: 06/07/24 Loc: HO.XRAY Attending Dr: Bryant Orlando MD Ordering Physician: Bryant Orlando MD Date of Service: 06/07/24 Procedure(s): XR thoracic spine 3V Accession Number(s): [id number] cc: Bryant Orlando MD EXAMINATION: XR THORACIC [...] by: Jaswant Robles MD 06/16/2024 05:25 PM [facility] Dictated By: Jaswant Robles MD Signed By: <Electronically signed by Jaswant Robles MD in OV> 06/16/24 1725 DD/ 1448 TD/TT: 06/07/24 1500 Sleever: [address] [address] XRay Report Signed Patient: Romeo Eldridge R#: [id number] : 1955 Acct:[id number] Age/Sex: 69 / M ADM Date: 06/07/24 Loc: HO.XRAY Attending Dr: Bryant Orlando MD Ordering Physician: Bryant Orlando MD Date of Service: 06/07/24 Procedure(s): XR thoracic spine 3V Accession Number(s): [id number] cc: Bryant Orlando MD EXAMINATION: XR THORACIC [...] by: Jaswant Robles MD 06/16/2024 05:25 PM [facility] Dictated By: Jaswant Robles MD Signed By: <Electronically signed by Jaswant Robles MD in OV> 06/16/24 1725 DD/ 1448 TD/TT: 06/07/24 1500 Sleever: [facility] XR lumbar spine 4V min Reviewed date:06/27/2024 04:07:46 PM Interpretation: Performing Lab: Notes/Report: [address] [address] XRay Report Signed Patient: Romeo Eldridge MR#: [id number] : 1955 Acct:[id number] Age/Sex: 69 / M ADM Date: 06/07/24 Loc: HO.XRAY Attending Dr: Bryant Orlando MD Ordering Physician: Bryant Orlando MD Date of Service: 06/07/24 Procedure(s): XR lumbar spine 4V min Accession Number(s): [id number] cc: Bryant Orlando MD EXAMINATION: XR THORACIC [...] 06/16/24 1725 DD/ 1505 TD/TT: 06/07/24 1515 Sleever: [place] [address] XRay Report Signed Patient: Romeo Eldridge#: [id number] : 1955 Acct:[id number] Age/Sex: 69 / M ADM Date: 06/07/24 Loc: HO.XRAY Attending Dr: Bryant Orlando MD Ordering Physician: Bryant Orlando MD Date of Service: 06/07/24 Procedure(s): XR lum bar spine 4V min Accession Number(s): [id number] cc: Bryant Orlando MD EXAMINATION: XR THORACIC [...] 06/16/24 1725 DD/ 1505 TD/TT: 06/07/24 1515 Sleever: [facility] XR hips NIA min 3V (Not yet reviewed by provider) Interpretation: Performing Lab: Notes/Report: [address] [address] XRay Report Signed Patient: Romeo Eldridge MR#: [id number] : 1955 Acct:[id number] Age/Sex: 69 / M ADM Date: 11/28/24 Loc: HO.CARD Attending Dr: Bryant Orlando MD Ordering Physician: Bryant Orlando MD Date of Service: 11/28/24 Procedure(s): XR hips NIA min 3V Accession Number(s): [id number] cc: Bryant Orlando MD CLINICAL HISTORY: bilat. hip pain 4 view, pelvis and bilateral hips Comparison: None Findings: Moderate osteoarthritis of the right hip. Ijdzkvfo-mv-yxbxsh osteoarthritis of the left hip. Mild deformities of the imaged femurs appear old/chronic including flattening of the left femoral head. Portions of the pelvis obscured without definite acute displaced fracture. Moderate stool burden in the ganzw-zf-zxru. IMPRESSION: Osteoarthritis of the both hips, left worse than right. This document has been electronically signed by: Jaime Ramirez MD on 11/28/2024 20:15:18 Dictated By: Jaime Ramirez MD Signed By: <Electronically signed by Jaime Ramirez MD in OV> 11/28/242014 DD/ 14 TD/TT: 11/28/242014 Sleever: [address] [address] XRay Report Signed Patient: Romeo Eldridge R#: [id number] : 1955 Acct:[id number] Age/Sex: 69 / M ADM Date: 11/28/24 Loc: HO.CARD Attending Dr: Bryant Orlando MD Ordering Physician: Bryant Orlando MD Date of Service: 11/28/24 Procedure(s): XR hip s NIA min 3V Accession Number(s): [id number] cc: Bryant Orlando MD CLINICAL HISTORY: bilat. hip pain 4 view, pelvis and bilateral hips Comparison: None Findings: Moderate osteoarthri tis of the right hip. Uipdqpxk-kg-plmgse osteoarthritis of th e left hip. Mild deformities of the imaged femurs appear old/chronic including flattening of the left femoral head. Portions of the pelvis obscur ed without definite acute displaced fracture. Moderate stool burde n in the ypkzk-ri-zhwy. IMPRESSION: Osteoarthritis of th e both hips, left worse than right. This document has be en electronically signed by: Jaime Ramirez MD on 11/28/2024 20:15:18 Dictated By: Martir Ramirez MD Signed By: <Electronically signed by Jaime Ramirez MD in OV> 11/28/242014 DD/ 14 TD/TT: 11/28/242014 Sleever: XR lumbar spine 2-3V (Not ye t reviewed by provider) Interpretation: Performing Lab: Notes/Report: [place] [address] XRay Report Signed Patient: Romeo Eldridge MR#: [id number] : 1955 Acct:[id number] Age/Sex: 69 / M ADM Date: 11/28/24 Loc: HO.CARD Attending Dr: Bryant Orlando MD Ordering Physician: Bryant Orlando MD Date of Service: 11/28/24 Procedure(s): XR lumbar spine 2-3V Accession Number(s): [id number] cc: Bryant Orlando MD CLINICAL HISTORY: lumbar [...] in OV> 11/28/242012 DD/ 11 TD/TT: 11/28/242011 Sleever: [address] [address] XRay Report Signed Patient: Romeo Eldridge R#: [id number] : 1955 Acct:[id number] Age/Sex: 69 / M ADM Date: 11/28/24 Loc: HO.CARD Attending Dr: Bryant Orlando MD Ordering Physician: Bryant Orlando MD Date of Service: 11/28/24 Procedure(s): XR lum bar spine 2-3V Accession Number(s): [id number] cc: Bryant Orlando MD CLINICAL HISTORY: lumbar [...] Ramirez MD on 11/28/2024 20:12:50 Dictated By: Martir Ramirez MD Signed By: <Electronically signed by Jaime Ramirez MD in OV> 11/28/242012 DD/ 11 TD/TT: 11/28/242011 Sleever: XR sacrum coccyx min 2V (Not yet reviewed by provider) Interpretation: Performing Lab: Notes/Report: [address] [address] XRay Report Signed Patient: Romeo Eldridge MR#: [id number] : 1955 Acct:[id number] Age/Sex: 69 / M ADM Date: 11/28/24 Loc: HOJeanetteCARD Attending Dr: Bryant Orlando MD Ordering Physician: Bryant Orlando MD Date of Service: 11/28/24 Procedure(s): XR sacrum coccyx min 2V Accession Number(s): [id number] cc: Bryant Orlando MD CLINICAL HISTORY: PAIN [...] document has been electronically signed by: Jaime Raimrez MD on 11/28/2024 20:13:38 Dictated By: Jaime Ramirez MD Signed By: <Electronically signed by Jaime Ramirez MD in OV> 11/28/242013 DD/ 12 TD/TT: 11/28/242012 Sleever: [place] [address] XRay Report Signed Patient: Romeo Eldridge#: [id number] : 1955 Acct:[id number] Age/Sex: 69 / M ADM Date: 11/28/24 Loc: CARD Attending Dr: Bryant Orlando MD Ordering Physician: Bryant Orlando MD Date of Service: 11/28/24 Procedure(s): XR sac rum coccyx min 2V Accession Number(s): [id number] cc: Bryant Orlando MD CLINICAL HISTORY: PAIN [...] Ramirez MD on 11/28/2024 20:13:38 Dictated By: Martir Ramirez MD Signed By: <Electronically signed by Jaime Ramirez MD in OV> 11/28/242013 DD/ 12 TD/TT: 11/28/242012 Sleever: MR lumbar spine wo con (Not yet reviewed by provider) Interpretation: Performing Lab: Notes/Report: [address] [address] Magnetic Resonance Report Signed Patient: Romeo Eldridge MR#: [id number] : 1955 Acct:[id number] Age/Sex: 69 / M ADM Date: 01/11/25 Loc: HO.MRI Attending Dr: Bryant Orlando MD Ordering Physician: Bryant Orlando MD Date of Service: 01/11/25 Procedure(s): MR lumbar spine wo con Accession Number(s): [id number] cc: Bryant Orlando MD EXAMINATION: MR LUMBAR [...] 01/11/25 0903 DD/ 0755 TD/TT: 01/11/25 0825 Sleever: [place] [address] Magnetic Resonance Report Signed Patient: Romeo Eldridge R#: [id number] : 1955 Acct:[id number] Age/Sex: 69 / M ADM Date: 01/11/25 Loc: HO.MRI Attending Dr: Bryant Orlando MD Ordering Physician: Bryant Orlando MD Date of Service: 01/11/25 Procedure(s): MR lum bar spine wo con Accession Number(s): [id number] cc: Bryant Orlando MD EXAMINATION: MR LUMBAR [...] 01/11/25 0903 DD/ 0755 TD/TT: 01/11/25 0825 Sleever: Reason For Referral Reason lumbar back pain e valuate and treatment Diagnosis 1 Lumbar back pain (M5 4.50) Referral Organization Bryant Orlando III, MD Referring Provider First Name Bryant Referring Provider Last Name Orlando Referring Provider Speciality Internal M edicine Referred Provider [facility] Referred Provider Specialty Physical Med icine General Notes Autumn Bolden CMA 12/29 01:36:49 PM >ref/demo/progress note [facility] 01/16/2025 01:52:31 PM >Copy of MRI faxed to [facility] Referral Priority Routine Referral Appointment Date 02/26/2025 Reason Consult and Treat Diagnosis 1 Ischemic heart disea se (I25.9) Diagnosis 2 Chest pain due to my ocardial ischemia, unspecified ischemic chest pain type (I25.9) Referral Organization Bryant Orlando III, MD Referring Provider First Name Bryant Referring Provider Last Name Johanny Referring Provider Speciality Internal M edicine Referred Provider [facility] er, Cardiology Referred Provider Specialty Cardiology General Notes PGloria ASMA 06/2024 02:27:50 PM > Faxed referral to [facility] Referral Priority Routine Medications Medication SIG [...] a day for 90 days 03/27/2025 Active Social History Tobacco Use: Social History [...] Problem Status W/U Status Risk Notes Problem 6429651 Former smoker (Z87.891) Active confirmed He stopped smoking in 2007. We made a plan to prevent relapse in times of stress and illness. Problem 836964124 Mixed hyperlipidemia (E78.2) Active confirmed His total cholesterol fasting is in range. Current therapy was continued without change. Problem 636594271 Deviated nasal septum (J34.2) Active confirmed Gave him a prescription for Flonase because of the congestion. If this does not solve the problem he will have a referral to ENT. Problem 974759884113884 Adhesive capsulitis of left shoulder (M75.02) Active confirmed I have offered to refer him to orthopedic surgery for injections. He is going to consider it. He may need lysis of the adhesions. Problem 04132295 Nasal congestion (R09.81) Active confirmed I gave him a prescription for Flonase. Problem 882276090 Obesity (BMI 30-39.9) (E66.9) Active confirmed His body ma ss index is 37. He weighs 206 pounds.We have discussed weight reduction strategies today. We discussed his elevated blood pressure. He will lose weight at a rate of one half of a pound per week through a diet restricted in fat calories and sodium. Problem 43715209 Essential hypertension (I10) Active confirmed His blood pressure today is Within normal limits. We have discussed weight reduction and sodium restriction. A repeat visit in several weeks was arranged. His blood pressure will be treated if it remains at this level Problem Hearing loss (36980472) Hearing loss, bilateral (H91.93) Active confirmed He has hearing aids but was not wearing them today. He will bring them next time he comes in to see if there are working properly. Problem 46815312 Coronary artery disease involving [place] coronary artery of [place] heart without angina pectoris (I25.10) Active confirmed To evaluate the equivocal treadmill stress test and nuclear medicine perfusion test was recommended by cardiology. We have ordered this today. He will be seen afterwards to discuss results. Problem 26598178420521 History of hepatitis C (Z86.19) Active confirmed He was treated in the past with Epclusa. Lipid function tests have been ordered. Problem 123118102 Ischemic heart disease (I25.9) Active confirmed Problem 889463262 Edentulous (K08.109) Active confirmed He was wearing dentures today. He says he is able to chew and swallow without difficulty. 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 Problem Low back pain (finding) (830036139) Lumbar back pain (M54.50) Active confirmed The back pain persists but is slightly better. The gabapentin low-dose gives him mild relief. The gabapentin was increased. The dexamethasone has been discontinued. He will continue to use heat and rest. I have referred him to pain management. Problem 62520288 Venous stasis (I87.8) Active confirmed His venous stasis changes are mild and do not require therapy at this time. Vital Signs Heart Rate 78 /min 03/27/2025 Temperature 96.8 degrees Fahrenheit 03/27/2025 Blood pressure diastolic 81 mm Hg 03/27/2025 Height 62.5 in 03/27/2025 Blood pressure systolic 134 mm Hg 03/27/2025 Weight 207 lbs 03/27/2025 BMI 37.25 kg/m2 03/27/2025 Encounters Encounter Location Date Provider Diagnosis Bryant Orlando III, MD [address] [place] [address] [place] [address] 01/17/2025 Bryant Orlando Ischemic heart disea se I25.9 ; Hearing loss, bilateral H91.93 ; Essential hypertension I10 ; Edentulous K08.109 ; Mixed hyperlipidemia E78.2 ; Obesity (BMI 30-39.9) E66.9 ; Coronary artery disease involving [place] coronary artery of [place] heart without angina pectoris I25.10 ; Venous stasis I87.8 ; Adhesive capsulitis of left shoulder M75.02 and Former smoker Z87.891 Bryant Orlando III, MD [address] [place] [address] [place] [address] 06/07/2024 Bryant Orlando Lumbar back pain M54 .50 ; Obesity (BMI 30-39.9) E66.9 ; Former smoker Z87.891 ; Essential hypertension I10 ; Edentulous K08.109 ; Mixed hyperlipidemia E78.2 ; Hearing loss, bilateral H91.93 ; Adhesive capsulitis of left shoulder M75.02 and Coronary artery disease involving [place] coronary artery of [place] heart without angina pectoris I25.10 Bryant Orlando III, MD [address] [place] [address] [place] [address] 07/13/2024 Bryant Orlando Lumbar back pain M54 .50 ; Former smoker Z87.891 ; Coronary artery disease involving [place] coronary artery of [place] heart without angina pectoris I25.10 ; History of hepatitis C Z86.19 ; Venous stasis I87.8 ; Adhesive capsulitis of left shoulder M75.02 ; Obesity (BMI 30-39.9) E66.9 ; Mixed hyperlipidemia E78.2 and Essential hypertension I10 Bryant Orlando III, MD [address] [place] [address] [place] [address] 08/10/2024 Bryant Orlando Lumbar back pain M54 .50 ; Essential hypertension I10 ; Hearing loss, bilateral H91.93 ; Edentulous K08.109 ; Mixed hyperlipidemia E78.2 ; Obesity (BMI 30-39.9) E66.9 ; Adhesive capsulitis of left shoulder M75.02 ; Former smoker Z87.891 and Coronary artery disease involving [place] coronary artery of [place] heart without angina pectoris I25.10 Bryant Orlando III, MD [address] [place] [address] [place] [address] 11/28/2024 Bryant Orlando Subconjunctival hemorrhage of left eye H11.32 ; Essential hypertension I10 ; Hearing loss, bilateral H91.93 ; Edentulous K08.109 ; Mixed hyperlipidemia E78.2 ; Obesity (BMI 30-39.9) E66.9 ; Venous stasis I87.8 ; Adhesive capsulitis of left shoulder M75.02 ; Coronary artery disease involving [place] coronary artery of [place] heart without angina pectoris I25.10 and Former smoker Z87.891 Bryant Orlando III, MD [address] [place] [address] [place] [address] 12/28/2024 Bryant Orlando Lumbar back pain M54 .50 ; Coronary artery disease involving [place] coronary artery of [place] heart without angina pectoris I25.10 ; Adhesive capsulitis of left shoulder M75.02 ; Obesity (BMI 30-39.9) E66.9 ; Former smoker Z87.891 and Subconjunctival hemorrhage of left eye H11.32 Bryant Orlando III, MD [address] [place] [address] [place] [address] 02/13/2025 Bryant Orlando Deviated nasal septu m J34.2 ; Nasal congestion R09.81 ; Adhesive capsulitis of left shoulder M75.02 ; Hearing loss, bilateral H91.93 ; Edentulous K08.109 ; Mixed hyperlipidemia E78.2 ; Obesity (BMI 30-39.9) E66.9 ; Coronary artery disease involving [place] coronary artery of [place] heart without angina pectoris I25.10 ; Former smoker Z87.891 and Lumbar back pain M54.50 Bryant Orlando III, MD [address] [place] [address] [place] [address] 03/27/2025 Bryant Orlando Coronary artery dise ase involving [place] coronary artery of [place] heart without angina pectoris I25.10 ; Former smoker Z87.891 ; Obesity (BMI 30-39.9) E66.9 ; Essential hypertension I10 ; Hearing loss, bilateral H91.93 ; Edentulous K08.109 and Mixed hyperlipidemia E78.2 Bryant Orlando III, MD [address] [place] [address] [place] [address] 09/01/2024 Bryant Orlando III, MD [address] [place] [address] [place] [address] 02/27/2025 Bryant Orlando III, MD [address] [place] [address] [place] [address] 06/23/2024 Bryant Orlando Lumbar back pain M54 .50 ; Former smoker Z87.891 ; Coronary artery disease involving [place] coronary artery of [place] heart without angina pectoris I25.10 ; Obesity [...] disease when he was living in the your but I do not have the records. [...] would resolve. 12/28/2024 Coronary artery disease involving [place] coronary artery of [place] heart without angina pectoris (ICD-10 - I25.10) [...] I gave him a prescription for Flonase. 03/27/2025 Former smoker (ICD-1 0 - Z87.891) He stopped smoking in 2007. We made a plan to prevent relapse in times of stress and illness. 03/27/2025 Coronary artery disease involving [place] coronary artery of [place] heart without angina pectoris (ICD-10 - I25.10) To evaluate the equivocal treadmill stress test and nuclear medicine perfusion test was recommended by cardiology. We have ordered this today. He will be seen afterwards to discuss results. 06/23/2024 Former smoker (ICD-1 0 - Z87.891) [...] and illness. 07/13/2024 Coronary artery disease involving [place] coronary artery of [place] heart without angina pectoris (ICD-10 - I25.10) [...] He may need lysis of the adhesions. 03/27/2025 Obesity (BMI 30-39.9 ) (ICD-10 - E66.9) His body mass index is 37. He weighs 206 pounds.We have discussed weight reduction strategies today. We discussed his elevated blood pressure. He will lose weight at a rate of one half of a pound per week through a diet restricted in fat calories and sodium. 06/23/2024 Coronary artery disease involving [place] coronary artery of [place] heart without angina pectoris (ICD-10 - I25.10) [...] see if there are working properly. 03/27/2025 Essential hypertension (ICD-10 - I10) His blood pressure today is Within normal limits. We have discussed weight reduction and sodium restriction. A repeat visit in several weeks was arranged. His blood pressure will be treated if it remains at this level 06/23/2024 Obesity (BMI 30-39.9 ) (ICD-10 - [...] to chew and swallow without difficulty. 03/27/2025 Hearing loss, bilateral (ICD-10 - H91.93) He has hearing aids but was not wearing them today. He will bring them next time he comes in to see if there are working properly. 06/23/2024 Adhesive capsulitis of left shoulder (ICD-10 [...] range. Current therapy was continued without change. 03/27/2025 Edentulous (ICD-10 - K08.109) He was wearing dentures today. He says he is able to chew and swallow without difficulty. 06/23/2024 Venous stasis (ICD-1 0 - I87.8) His venous stasis changes are mild and do not require therapy at this time. 01/17/2025 Coronary artery disease involving [place] coronary artery of [place] heart without angina pectoris (ICD-10 - I25.10) [...] restricted in fat calories and sodium. 03/27/2025 Mixed hyperlipidemia (ICD-10 - E78.2) His total cholesterol fasting is in range. Current therapy was continued without change. 06/23/2024 Mixed hyperlipidemia (ICD-10 - E78.2) His [...] the adhesions. 02/13/2025 Coronary artery disease involving [place] coronary artery of [place] heart without angina pectoris (ICD-10 - I25.10) [...] the adhesions. 06/07/2024 Coronary artery disease involving [place] coronary artery of cap[place] heart without angina pectoris (ICD-10 - I25.10) [...] if necessary. 08/10/2024 Coronary artery disease involving [place] coronary artery of [place] heart without angina pectoris (ICD-10 - I25.10) His old records do not include documentation of a cardiac catheterization but do say that he had disease in his circumflex artery there was noncritical. His current medications were continued including the aspirin. 11/28/2024 Coronary artery disease involving [place] coronary artery of cap[place] heart without angina pectoris (ICD-10 - I25.10) [...] Treatment Pending Test Test Name Order Date PROFILE, FASTING (COMPREHENSIVE METABOLI C) 03/27/2025 PSA, TOTAL 03/27/2025 CBC w DIFF 03/27/2025 NUC MYOCARDIAL PERF SPECT W MIBI 025 Echocardiogram 11/28/2024 Stress Test 11/28/2024 Lipid Panel 03/27/2025 ECG 12 lead EKG 11/28/2024 ECG 12 lead EKG 01/12/2024 MR lumbar spine wo con 01/11/2025 XR chest 4 views 01/12/2024 XR hips NIA min 3V 11/28/2024 XR lumbar spine 2-3V 11/28/2024 XR sacrum coccyx min 2V 11/28/2024 Next Appt Details Provider Name:Bryant Orlando , 07/03/2025 02:45:00 PM, [address] [facility] [address], [place], [address], Provider Name:Bryant Kerns Orlando , 01/21/2026 02:30:00 PM, [address] [place] [address] [address], [place], [address], Insurance Providers Payer Name Payer Address Payer Phone Subscriber Number Group Number Insured Name Patient Relationship to Insured Coverage Start Date Coverage End Date MEDICARE NGS [address] [place] [address] [id number] Chente Romeo Self - patient is the insured [place] [address] [place], [place] [id number] Chente Romeo Self - patient is the insured Medical [...] inade quate 2022 Negative upper endoscopy in [facility] 2022 Hospitalization History Reason Date(Month/Year) No history
== END ==
LOC: HO.CARD 09:37
PROVIDERS: PCP Internal Medicine Medical Oncology; Visit Provider Internal Medicine Medical Oncology
DX: I25.10 Atherosclerotic heart disease of native coronary artery without angina pectoris (principal)
CPT/HCPCS: 78452; 93017; A9500

== ENCOUNTER → 2025-04-18 09:56 | Outpatient (BNV) | payer MEDICARE, MEDICAID, SELFPAY | PROVIDERS: PCP Internal Medicine Medical Oncology | DX: I25.10 Atherosclerotic heart disease of native coronary artery without angina pectoris (principal) | CPT/HCPCS: 78452; 93016; 93018 ==

== ENCOUNTER 2025-06-15 09:39 | Outpatient (AMB) | payer MEDICARE, MEDICAID, SELFPAY ==
--- OUTSIDE RECORDS SUMMARY | 2024-08-10 05:45 | XMS_ITS ---
Author Organization Bryant Orlando III, MD Address [address] [place] [address] Care Team Providers Care Generation Mechanic Helper Name Role Phone Dr. Bryant Orlando III Primary Care Provider [phone] Allergies Allergen (clinical drug ingredient) Drug/Non Drug Allergy documented on EMR Reaction Allergy Type Onset Date Status No Known Drug Allergy Unknown Drug Allergy Active REASON FOR VISIT Hypertension, Hearing loss, Hyperlipidemia, Obesity, Left shoulder pain, Coronary artery disease Medications Medication SIG (Take, Route, Frequency, Duration) Notes Start Date End Date Status dexAMETHasone 2 MG 1 tablet Orally twic e a day 06/23/2024 Active Aspirin 81 81 MG 1 tablet Orally Once a day 01/12/2024 Active Metoprolol Succinate ER 25 MG 1 tablet Orally Once a day 01/12/2024 Active Lisinopril 2.5 MG 1 tablet Orally Once a day 01/12/2024 Active Omeprazole 20 MG 1 capsule Orally Onc e a day 07/13/2024 Active Gabapentin 300 MG 1 capsule Orally thr ee times a day 07/13/2024 Active Social History Tobacco Use: Social History Observation Description Date Details (start date - stop date) Former Smoker NA - NA Sex Assigned At : Social History Observation Description Sex Assigned At Male Tobacco Use/Smoking Question Answer Notes Patient is a former smoker Vital Signs Temperature 97.7 degrees Fahrenheit 08/10/19 25 Blood pressure systolic 144 mm Hg 08/10/19 25 Blood pressure diastolic 80 mm Hg 025 Heart Rate 67 /min 08/10/2024 Height 62.5 in 08/10/2024 Weight 209 lbs 08/10/2024 BMI 37.61 kg/m2 08/10/2024 Encounters Encounter Location Date Provider Diagnosis Bryant Orlando III, MD [address] [place] [address] ISHMAEL Quinn [place], [place] [address] 08/10/2024 Bryant Orlando Lumbar back pain M54 .50 ; Essential hypertension I10 ; Hearing loss, bilateral H91.93 ; Edentulous K08.109 ; Mixed hyperlipidemia E78.2 ; Obesity (BMI 30-39.9) E66.9 ; Adhesive capsulitis of left shoulder M75.02 ; Former smoker Z87.891 and Coronary artery disease involving [place] coronary artery of [place] heart without angina pectoris I25.10 Assessments Encounter Date Diagnosis (ICD Code) Assessment Notes Treat ment Notes Treatment Clinical Notes 08/10/2024 Lumbar back pain (ICD-10 - M54.50) The back pain persists but is slightly better. The gabapentin low-dose gives him mild relief. The gabapentin was increased. The dexamethasone has been discontinued. He will continue to use heat and rest. I have referred him to pain management. 08/10/2024 Essential hypertension (ICD-10 - I10) His blood pressure today is 144/80. We have discussed weight reduction and sodium restriction. A repeat visit in several weeks was arranged. His blood pressure will be treated if it remains at this level 08/10/2024 Hearing loss, bilateral (ICD-10 - H91.93) He has hearing aids but was not wearing them today. He will bring them next time he comes in to see if there are working properly. 08/10/2024 Edentulous (ICD-10 - K08.109) He was wearing dentures today. He says he is able to chew and swallow without difficulty. 08/10/2024 Mixed hyperlipidemia (ICD-10 - E78.2) His total cholesterol fasting is in range. Current therapy was continued without change. 08/10/2024 Obesity (BMI 30-39.9) (ICD-10 - E66.9) His body mass index is 36.7. He weighs 204 pounds.We have discussed weight reduction strategies today. We discussed his elevated blood pressure. He will lose weight at a rate of one half of a pound per week through a diet restricted in fat calories and sodium. 08/10/2024 Adhesive capsulitis of left shoulder (ICD-10 - M75.02) I have offered to refer him to orthopedic surgery for injections. He is going to consider it. He may need lysis of the adhesions. 08/10/2024 Former smoker (ICD-10 - Z87.891) He stopped smoking in 2007. We made a plan to prevent relapse in times of stress and illness. 08/10/2024 Coronary artery disease involving [place] coronary artery of [place] heart without angina pectoris (ICD-10 - I25.10) His old records do not include documentation of a cardiac catheterization but do say that he had disease in his circumflex artery there was noncritical. His current medications were continued including the aspirin. Plan Of Treatment Medication Medication Name Sig Start Date Stop Date Notes dexAMETHasone 2 MG 1 tablet Orally twice a day 06/23/2024 Aspirin 81 81 MG 1 tablet Orally Once a day 01/12/2024 Metoprolol Succinate ER 25 MG 1 tablet Orally Once a day 0 01/12/2024 Lisinopril 2.5 MG 1 tablet Orally Once a day 01/12/2024 Omeprazole 20 MG 1 capsule Orally Once a day 07/13/2024 Gabapentin 300 MG 1 capsule Orally thr ee times a day 07/13/2024 Next Appt Details Follow Up: 3 Months, Reason: OV Provider Name:Bryant Orlando , 07/03/2025 02:45:00 PM, [address] [place] [address] ISHMAEL SUTTON, [place], [phone], Provider Name:Bryant Orlando , 01/21/2026 02:30:00 PM, [address] [place] [address] ISHMAEL SUTTON, [place], [phone], Progress Notes * Romeo ELDRIDGEDOB:1955 (69 yo M)Acc No.[id number]:08/10/2024 Progress Notes Patient: Romeo MEJIA Provider: Neida Orlando MD :1955 A ge:69 Y S ex:Male Date:08/10/2024 Address:[address] [place] [address] [id number] Subjective: * Chief Complaints: * H ypertensionHearing lossHyperlipidemiaObesityLeft shoulder painCoronary artery disease * HPI: C OVID-19 Screening: He returns to check his weight and blood pressure. His blood pressure was 144/80. He says he has not taken his medication several days because he continues to forget to do so. We have discussed ways in which he can't remember a daily basis to take his medication. He has had no chest pain and feels generally well. His blood pressure remained at this level. After lying down for 15 min. He is going to return to the office in a couple of weeks after he takes his medication faithfully and we will recheck her blood pressure. His medications will be altered as necessary. Questions H ave you had any new onset fever, chills, cough, congestion, sore throat, shortness of breath, muscle aches? N o * ROS: G eneral/Constitutional: pain L eft shoulder. C hills d enies. F atigue?admits. F ever d enies. E NT: Decreased hearing i n both ears. R espiratory: Cough d enies. C ardiovascular: Chest pain with exertion d enies. D yspnea on exertion?denies. S hortness of breath d enies. G astrointestinal: Constipation o ccasional. D ecreased appetite d enies. D iarrhea d enies. H eartburn d enies. N ausea d enies. R ectal bleeding d enies. V omiting d enies. H ematology: bruising d enies. p etechiae d enies. S wollen glands n one have been noted. G enitourinary: Frequent urination o nce a night. M usculoskeletal: Muscle aches d enies. P ainful joints d enies. S ciatica d enies. W eakness d enies. S kin: Itching d enies. R rachelle d enies. S kin lesion(s)?denies. N eurologic: Difficulty speaking d enies. D izziness d enies.?Headache d enies. L ow back pain t hat is chronic. P sychiatric: Depressed mood d enies. * Medical History: * Surgical History: N egative upper endoscopy in [facility] ttempted colonoscopy, preparation inadequate 2022No history * Hospitalization/Major Diagno stic Procedure: N o history * Family History: F ather: . M other: , liver disease, diagnosed with HTN, CVD. S iblings: alive. 1 brother(s) , 1 sister(s) . . His brother has coronary artery disease. He has a history of heroin addiction. He is not aware of any other family history of addiction or mental illness. * Social History: T obacco Use: T obacco Use/Smoking P pierre is a f ormer smoker H martir was born in [facility]. 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 He has no buddhism objection to blood transfusion. He has no children. He is not currently working. 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 {'Living Situation': 'Lives with [place]', 'Work Status': 'Retired'}. * Medications: T akingLisinopril 2.5 MG Tablet 1 tablet Orally Once a day Aspirin 81 81 MG Tablet Delayed Release 1 tablet Orally Once a day Metoprolol Succinate ER 25 MG Tablet Extended Release 24 Hour 1 tablet Orally Once a day dexAMETHasone 2 MG Tablet 1 tablet Orally twice a day Gabapentin 300 MG Capsule 1 capsule Orally three times a day Omeprazole 20 MG Capsule Delayed Release 1 capsule Orally Once a day Taking Lisinopril 2.5 MG Tablet 1 tablet Orally Once a day Taking Aspirin 81 81 MG Tablet Delayed Release 1 tablet Orally Once a day Taking Metoprolol Succinate ER 25 MG Tablet Extended Release 24 Hour 1 tablet Orally Once a day Taking dexAMETHasone 2 MG Tablet 1 tablet Orally twice a day Taking Gabapentin 300 MG Capsule 1 capsule Orally three times a day Taking Omeprazole 20 MG Capsule Delayed Release 1 capsule Orally Once a day DiscontinuedGabapentin 100 MG Capsule 1 capsule Orally three time a day Medication List reviewed and reconciled with the patientDiscontinued Gabapentin 100 MG Capsule 1 capsule Orally three time a day Medication List reviewed and reconciled with the patient * Allergies: N o Known Drug Allergyno[Allergies Verified] Objective: * Vitals: H t: 62.5, Wt:209, BMI:37.61, BP:144/80, HR:67, Temp:97.7, Ht-cm: 158.75, Wt-k.8. * P ast Orders: Lab:Complete Blood Count Aut o Diff * Collection Date 05/11/2024 01/13/2024 Collection Time 07:23 AM 06:41 AM Order Date 05/11/2024 01/13/2024 White Blood Count 6.9 (Ref Range: 4.8-10.8 X10*3/uL) 6.3 (Ref Range: 4.8-10.8 X10*3/uL) Red Blood Count 5.04 (Ref Range: 4.60-5.80 X10*6/uL) 4.98 (Ref Range: 4.60-5.80 X10*6/uL) Hemoglobin 14.8 (Ref Range: 14.0-18.0 g/dl) 15.0 (Ref Range: 14.0-18.0 g/dl) Hematocrit 44.7 (Ref Range: 42.0-52.0 %) 44.2 (Ref Range: 42.0-52.0 %) Mean Corpuscular Volume 88.7 (Ref Range: 80.0-98.0 fL) 88.8 (Ref Range: 80.0-98.0 fL) Mean Corpuscular Hemoglobin 29.4 (Ref Range: 27.0-33.0 pg) 30.1 (Ref Range: 27.0-33.0 pg) Mean Corpuscular HGB Conc 33.1 (Ref Range: 31.0-36.0 g/dl) 33.9 (Ref Range: 31.0-36.0 g/dl) Red Cell Distribution Width 13.3 (Ref Range: 11.0-16.0 %) 13.4 (Ref Range: 11.0-16.0 %) Platelet Count 171 (Ref Range: 160-400 X10*3/uL) 156 L (Ref Range: 160-400 X10*3/uL) Mean Platelet Volume 9.8 (Ref Range: 9.4-12.4 fL) 9.6 (Ref Range: 9.4-12.4 fL) Neutrophils Percent Auto 54.0 (Ref Range: 45-73 %) 46.2 (Ref Range: 45-73 %) Imm Gran Pct Auto 0.3 (Ref Range: 0.0-0.4 %) 0.3 (Ref Range: 0.0-0.4 %) Lymphocytes Percent Auto 28.6 (Ref Range: 20-40 %) 35.6 (Ref Range: 20-40 %) Monocytes Percent Auto 11.8 H (Ref Range: 2-11 %) 13.7 H (Ref Range: 2-11 %) Eosinophils Percent Auto 4.7 H (Ref Range: 0-4 %) 3.7 (Ref Range: 0-4 %) Basophils Percent Auto 0.6 (Ref Range: 0-2 %) 0.5 (Ref Range: 0-2 %) NRBC Pct Auto 0.0 (Ref Range: 0.0-0.2 /100WBC) 0.0 (Ref Range: 0.0-0.2 /100WBC) Neutrophils Absolute Auto 3.7 (Ref Range: 2.0-8.3 x10*3/uL) 2.9 (Ref Range: 2.0-8.3 x10*3/uL) Imm Gran Abs Auto 0.02 (Ref Range: 0.00-0.03 X10*3/uL) 0.02 (Ref Range: 0.00-0.03 X10*3/uL) Lymphocytes Absolute Auto 2.0 (Ref Range: 1.2-4.9 X10*3/uL) 2.2 (Ref Range: 1.2-4.9 X10*3/uL) Monocytes Absolute Auto 0.8 (Ref Range: 0.1-1.2 X10*3/uL) 0.9 (Ref Range: 0.1-1.2 X10*3/uL) Eosinophils Absolute Auto 0.3 (Ref Range: 0.0-0.4 X10*3/uL) 0.2 (Ref Range: 0.0-0.4 X10*3/uL) Basophils Absolute Auto 0.0 (Ref Range: 0.0-0.2 X10*3/uL) 0.0 (Ref Range: 0.0-0.2 X10*3/uL) NRBC Abs Auto 0.000 (Ref Range: 0.0-0.012 X10*3/uL) 0.000 (Ref Range: 0.0-0.012 X10*3/uL) * Lab:Sarah ruiz Fast * Collection Date 05/11/2024 01/13/2024 Collection Time 07:23 AM 06:41 AM Order Date 05/11/2024 01/13/2024 Sodium 139 (Ref Range: 135-145 mmol/L) 139 (Ref Range: 135-145 mmol/L) Bilirubin Total 0.6 (Ref Range: 0.0-1.0 mg/dL) 0.8 (Ref Range: 0.0-1.0 mg/dL) Aspartate Amino Transferase 45 H (Ref Range: 5-37 U/L) 27 (Ref Range: 5-37 U/L) Alanine Aminotransferase 57 H (Ref Range: 0-40 U/L) 21 (Ref Range: 0-40 U/L) Total Protein 7.7 (Ref Range: 6.5-8.0 g/dL) 7.7 (Ref Range: 6.5-8.0 g/dL) Albumin Level 4.1 (Ref Range: 3.5-5.0 g/dL) 4.2 (Ref Range: 3.5-5.0 g/dL) Alkaline Phosphatase 75 (Ref Range: 39-117 U/L) 73 (Ref Range: 39-117 U/L) Potassium 4.3 (Ref Range: 3.3-5.1 mmol/L) 4.0 (Ref Range: 3.3-5.1 mmol/L) Chloride 103 (Ref Range: 96-108 mmol/L) 101 (Ref Range: 96-108 mmol/L) Carbon Dioxide 31 H (Ref Range: 22-29 mmol/L) 27 (Ref Range: 22-29 mmol/L) Anion Gap 9 L (Ref Range: 12-20) 15 (Ref Range: 12-20) Blood Urea Nitrogen 15 (Ref Range: 9-16 mg/dL) 12 (Ref Range: 9-16 mg/dL) Creatinine 0.79 (Ref Range: 0.5-1.4 mg/dL) 0.77 (Ref Range: 0.5-1.4 mg/dL) Estimated Glomerular Filt Rate > 60 > 60 Glucose Fasting 117 H (Ref Range: 60-99 mg/dL) 115 H (Ref Range: 60-99 mg/dL) Calcium 9.6 (Ref Range: 8.4-10.2 mg/dL) 9.3 (Ref Range: 8.4-10.2 mg/dL) * Lab:Lipid Panel * Collection Date 05/11/2024 01/13/2024 Collection Time 07:23 AM 06:41 AM Order Date 05/11/2024 01/12/2024 Triglycerides 209 H (Ref Range: <150 mg/dL) 144 (Ref Range: <150 mg/dL) Cholesterol 145 (Ref Range: <200 mg/dL) 135 (Ref Range: <200 mg/dL) LDL Cholesterol Calculated 74 (Ref Range: <100 mg/dL) 70 (Ref Range: <100 mg/dL) HDL Cholesterol 30 L (Ref Range: >40 mg/dL) 37 L (Ref Range: >40 mg/dL) ???Imaging:XR thoracic spine 3V (Order Date - 06/07/2024) (Performed Date - 06/07/2024) ???Imaging:XR lumbar spine 4V min (Order Date - 06/07/2024) (Performed Date - 06/07/2024) * Examination: G eneral Examination: GENERAL APPEARANCE: p leasant, well nourished, well developed, in no acute distress, calm and relaxed, obese, man. HEAD: a traumatic, normocephalic. EYES: e deepthi, perrla, anicteric, conjugate. EARS: n ormal. NOSE: s eptum intact. ORAL CAVITY: n ormal, unremarkable. NECK/THYROID: n o jugular venous distention, no carotid bruit, thyroid normal. LYMPH NODES: n o enlarged lymph nodes,spleen normal. SKIN: n o suspicious lesions, anicteric. HEART: n o clicks, gallops, murmurs, or rubs, regular rhythm, S1, S2 normal, no s3, or vascular bruits. LUNGS: c lear to auscultation . BREASTS: no masses palpable bilaterally. ABDOMEN: b owel sounds normal, no ascites, no organomegaly, no mass. RECTAL EXAM: n ot examined. MUSCULOSKELETAL: e xtremities unremarkable, no clubbing, cyanosis or edema, Pain to range of motion of left shoulder. PERIPHERAL PULSES: n ormal. NEUROLOGIC: a lert and oriented, cranial nerves 2-12 grossly intact, deep tendon reflexes 2+ symmetrical, motor strength normal upper and lower extremities, sensory exam intact. PSYCH: a lert, oriented. Assessment: * Assessment: 1. E ssential hypertension - I10 (Primary) N otes :His blood pressure today is 144/80. We have discussed weight reduction and sodium restriction. A repeat visit in several weeks was arranged. His blood pressure will be treated if it remains at this level 2 . L umbar back pain - M54.50 N otes :The back pain persists but is slightly better. The gabapentin low-dose gives him mild relief. The gabapentin was increased. The dexamethasone has been discontinued. He will continue to use heat and rest. I have referred him to pain management. 3 . H earing loss, bilateral - H91.93 N otes :He has hearing aids but was not wearing them today. He will bring them next time he comes in to see if there are working properly. 4 . E dentulous - K08.109 N otes :He was wearing dentures today. He says he is able to chew and swallow without difficulty. 5 . M ixed hyperlipidemia - E78.2 N otes :His total cholesterol fasting is in range. Current therapy was continued without change. 6 . O besity (BMI 30-39.9) - E66.9 N otes :His body mass index is 36.7. He weighs 204 pounds.We have discussed weight reduction strategies today. We discussed his elevated blood pressure. He will lose weight at a rate of one half of a pound per week through a diet restricted in fat calories and sodium. 7 . A dhesive capsulitis of left shoulder - M75.02 N otes :I have offered to refer him to orthopedic surgery for injections. He is going to consider it. He may need lysis of the adhesions. 8 . F ormer smoker - Z87.891 N otes :He stopped smoking in 2007. We made a plan to prevent relapse in times of stress and illness. 9 . C oronary artery disease involving [place] coronary artery of [place] heart without angina pectoris - I25.10 N otes :His old records do not include documentation of a cardiac catheterization but do say that he had disease in his circumflex artery there was noncritical. His current medications were continued including the aspirin. Plan: * Treatment: * Procedure Codes: * Preventive Medicine: Counseling: C are goal follow-up plan: Counseling for abnormal BMI given Y es Above Normal BMI Follow-up D ietary management education, guidance, and counseling, Dietary needs education, Exercise promotion: strength training, Exercise promotion: stretching, Feeding regime, Giving encouragement to exercise, Lifestyle education regarding diet, Nutrition / feeding management, Nutrition therapy, Prescribed activity/exercise education, Prescribed diet education, Prescribed dietary intake, Special diet education, Weight monitoring , Intervention, Order not done: Medical or Other reason not done S moking/Tobacco Use Patient counseled on the dangers of tobacco use and urged to quit. 0 08/08/2024 * Follow Up: 3 Months (Reason: OV) * Images: * Sign off status: Completed true * Provider: Neida Orlando MD Date: 0 08/10/2024 Generated for Terelli shanti/Sonal/eTransmitting on: 1 08/16/2024 09:43 AM EST History and Physical Notes * HPI (History of Present Illness) Category Sub-Category Detail Notes COVID-19 Screening Questions Have you had any new onset fever, chills, cough, congestion, sore throat, shortness of breath, muscle aches?: No Examination Category Sub-Category Detail Notes General Examination GENERAL APPEARANCE: pleasant , well nourished, well developed, in no acute distress, calm and relaxed, obese, man HEAD: atraumatic, normocep halic EYES: eomi, perrla, anicte danielle, conjugate EARS: normal NOSE: septum intact NECK/THYROID: no jugular venous di stention, no carotid bruit, thyroid normal HEART: no clicks, gallops, murmurs, or rubs, regular rhythm, S1, S2 normal, no s3, or vascular bruits LUNGS: clear to auscultatio n ABDOMEN: bowel sounds normal, no ascites, no organomegaly, no mass NEUROLOGIC: alert and oriented, cranial nerves 2-12 grossly intact, deep tendon reflexes 2+ symmetrical, motor strength normal upper and lower extremities, sensory exam intact SKIN: no suspicious lesion s, anicteric PERIPHERAL PULSES: normal BREASTS: no masses palpable b ilaterally MUSCULOSKELETAL: extremities unremark able, no clubbing, cyanosis or edema, Pain to range of motion of left shoulder LYMPH NODES: no enlarged lymph no bozena,spleen normal RECTAL EXAM: not examined PSYCH: alert, oriented ORAL CAVITY: normal, unremarkable
--- OUTSIDE RECORDS SUMMARY | 2024-09-01 10:11 | XMS_ITS ---
Author Organization Bryant Orlando III, MD Address [address] [place] [address] Care Team Providers Care Nuclear Instructor Name Role Phone Dr. Bryant Orlando III Primary Care Provider REASON FOR VISIT Rx refill request Medications Medication SIG (Take, Route, Fr equency, Duration) Notes Start Date End Date Status Gabapentin 300 MG 1 capsule Orally thr ee times a day for 90 days 07/13/2024 Active Social History Sex Assigned At : Social History Observation Description Sex Assigned At Male Encounters Encounter Location Date Provider Diagnosis Bryant Orlando III, MD [address] [place] [address] [place] [address] 09/01/2024 Bryant Orlando Plan Of Treatment Medication Medication Name Sig Start Date Stop Date Notes Gabapentin 300 MG 1 capsule Orally thr ee times a day for 90 days 07/13/2024 Next Appt Details Provider Name:Bryant Orlando , 07/03/2025 02:45:00 PM, [address] [place] [address] [place], [address], Provider Name:Bryant Orlando , 01/21/2026 02:30:00 PM, [address] [place] [address] [place], [address], Progress Notes * Roemo ELDRIDGEDOB:1955 (69 yo M)Acc No.[id number]:09/01/2024 Patient: Romeo MEJIA :1955 A ge:69 Y S ex:Male Address:[address] [place] [address] [place] [address] * Refills Refill Gabapentin Capsule, 300 MG, Orally, 270 Capsule, 1 capsule, three times a day, 90 days, Refills=3 * true * Date: Generated for Sid moser/Sonal/Angel on: 08/16/2024 09:42 AM EST
--- OUTSIDE RECORDS SUMMARY | 2024-11-09 05:45 | XMS_ITS ---
Author Organization Bryant Orlando III, MD Address [address] [place] [address] Care Team Providers Care Deputy Fire Marshal Name Role Phone Dr. Bryant Orlando III Primary Care Provider Allergies Allergen (clinical drug ingredient) Drug/Non Drug Allergy documented on EMR Reaction Allergy Type Onset Date Status No Known Drug Allergy Unknown Drug Allergy Active REASON FOR VISIT Follow up Medications Medication SIG (Take, Route, Frequency, Duration) Notes Start Date End Date Status Lisinopril 2.5 MG 1 tablet Orally Once a day 01/12/2024 Active Gabapentin 300 MG 1 capsule Orally thr ee times a day 07/13/2024 Active Metoprolol Succinate ER 25 MG 1 tablet Orally Once a day 01/12/2024 Active Omeprazole 20 MG 1 capsule Orally Onc e a day 07/13/2024 Active dexAMETHasone 2 MG 1 tablet Orally twic e a day 06/23/2024 Active Aspirin 81 81 MG 1 tablet Orally Once a day 01/12/2024 Active Social History Tobacco Use: Social History Observation Description Date Details (start date - stop date) Former Smoker NA - NA Sex Assigned At : Social History Observation Description Sex Assigned At Male Tobacco Use/Smoking Question Answer Notes Patient is a former smoker Encounters Encounter Location Date Provider Diagnosis Bryant Orlando III, MD [address] [place] [address] [place] [address] 11/09/2024 Bryant Orlando Plan Of Treatment Medication Medication Name Sig Start Date Stop Date Notes Lisinopril 2.5 MG 1 tablet Orally Once a day 01/12/2024 Gabapentin 300 MG 1 capsule Orally thr ee times a day 07/13/2024 Metoprolol Succinate ER 25 MG 1 tablet Orally Once a day 0 01/12/2024 Omeprazole 20 MG 1 capsule Orally Once a day 07/13/2024 dexAMETHasone 2 MG 1 tablet Orally twice a day 06/23/2024 Aspirin 81 81 MG 1 tablet Orally Once a day 01/12/2024 Next Appt Details Provider Name:Bryant Orlando , 07/03/2025 02:45:00 PM, [address] [place] [address] [address], [place], [address], Provider Name:Bryant Orlando , 01/21/2026 02:30:00 PM, [address] [place] [address] [address], [place], [address], Progress Notes * AMIRA RomeoDOB:1955 (70 yo M)Acc No.[id number]:11/09/2024 Progress Notes Patient: Romeo MEJIA Provider: Neida Orlando MD :1955 A ge:69 Y S ex:Male Date:11/09/2024 Address:[address] [place] [address] [facility] Subjective: * Chief Complaints: * 1 . Follow up. * HPI: C OVID-19 Screening: Questions H ave you had any new onset fever, chills, cough, congestion, sore throat, shortness of breath, muscle aches? N o * ROS: G eneral/Constitutional: pain o nly normal aches and pains. C hills d enies.?Fatigue a dmits. F ever d enies. E NT: Decreased hearing d enies. R espiratory: Cough d enies. C ardiovascular: Chest pain with exertion d enies. D yspnea on exertion?denies. S hortness of breath d enies. G astrointestinal: Constipation d enies. D ecreased appetite d enies.?Diarrhea d enies. H eartburn d enies. N ausea d enies. R ectal bleeding?denies. V omiting d enies. H ematology: bruising d enies. p etechiae d enies. S wollen glands n one have been noted. G enitourinary: Frequent urination d enies. M usculoskeletal: Muscle aches d enies. P ainful joints d enies. S ciatica d enies. W eakness d enies. S kin: Itching d enies. R rachelle d enies. S kin lesion(s)?denies. N eurologic: Difficulty speaking d enies. D izziness d enies.?Headache d enies. L ow back pain d enies. P sychiatric: Depressed mood d enies. * Medical History: E dentulous, Constipation, Hyperlipidemia, Obesity, Adhesive capsulitis left shoulder 2022, Venous stasis lower extremities, Left second rib deformity, History of hepatitis C, History of unstable angina, Hearing loss, History of substance use disorder, Methadone maintenance, Esophageal varices, Colonoscopy 2022, Former smoker 2007, History of hypertension, {'Cholesterol': '145 (Normal)', 'Blood Sugar': '117 (Normal)', 'Kidney Function': 'Normal', 'Liver Function': 'Normal'}. * Surgical History: N egative upper endoscopy in [facility] 2022, Attempted colonoscopy, preparation inadequate 2022, No history . * Hospitalization/Major Diagno stic Procedure: N o history . * Family History: F ather: . M other: , liver disease, diagnosed with CVD, HTN. S iblings: alive. 1 brother(s) , 1 sister(s) . . His brother has coronary artery disease. He has a history of heroin addiction. He is not aware of any other family history of addiction or mental illness. * Social History: T obacco Use: T obacco Use/Smoking P pierre is a f ormer smoker H e was born in [facility]. 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 He has no muslim objection to blood transfusion. He has no children. He is not currently working. He is involved in a methadone maintenance program in [facility]. {'Living Situation': 'Lives with [place]', 'Work Status': 'Retired'}. * Medications: T aking Lisinopril 2.5 MG Tablet 1 tablet Orally Once a day , Taking Aspirin 81 81 MG Tablet Delayed Release 1 tablet Orally Once a day , Taking Metoprolol Succinate ER 25 MG Tablet Extended Release 24 Hour 1 tablet Orally Once a day , Taking dexAMETHasone 2 MG Tablet 1 tablet Orally twice a day , Taking Omeprazole 20 MG Capsule Delayed Release 1 capsule Orally Once a day , Taking Gabapentin 300 MG Capsule 1 capsule Orally three times a day , Medication List reviewed and reconciled with the patient * Allergies: N o Known Drug Allergy. Objective: * Vitals: * Examination: G eneral Examination: GENERAL APPEARANCE: p leasant, well nourished, well developed, in no acute distress, calm and relaxed. HEAD: a traumatic, normocephalic. EYES: e deepthi, [...] e xtremities unremarkable, no clubbing, cyanosis or edema. PERIPHERAL PULSES: n ormal. NEUROLOGIC: a lert and oriented, cranial nerves 2-12 grossly intact, deep tendon reflexes 2+ symmetrical, motor strength normal upper and lower extremities, sensory exam intact. PSYCH: a lert, oriented. Assessment: Plan: * Treatment: * Images: * The named appointment provid er may or may not be the originator of this progress note, and it is not deemed complete until electronically signed by the appointment provider. Sign off status: Pending * Provider: Neida Orlando MD Date: 0 11/09/2024 Generated for Sid moser/Sonal/Fabiitting on: 08/16/2024 09:43 AM EST History and Physical Notes * HPI (History of Present Illness) Category Sub-Category Detail Notes COVID-19 Screening Questions Have you had any new onset fever, chills, cough, congestion, sore throat, shortness of breath, muscle aches?: No Examination Category Sub-Category Detail Notes General Examination GENERAL APPEARANCE: pleasant , well nourished, well developed, in no acute distress, calm and relaxed HEAD: atraumatic, normocep halic EYES: eomi, perrla, [...] extremities unremark able, no clubbing, cyanosis or edema LYMPH NODES: no enlarged lymph no bozena,spleen normal RECTAL EXAM: not examined PSYCH: alert, oriented ORAL CAVITY: normal, unremarkable
--- OUTSIDE RECORDS SUMMARY | 2024-11-28 06:00 | XMS_ITS ---
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 Bryant Orlando III Primary Care Provider [phone] Allergies Allergen (clinical drug ingredient) Drug/Non Drug Allergy documented on EMR Reaction Allergy Type Onset Date Status No Known Drug Allergy Unknown Drug Allergy Active Results Component Value Reference Range Notes XR hips NIA min 3V (Not yet reviewed by provider) Interpretation: Performing Lab: Notes/Report: [address] [address] XRay Report Signed Patient: Romeo Eldridge MR#: [id number] : 1955 Acct:[id number] Age/Sex: 69 / M ADM Date: 11/28/24 Loc: HO.CARD Attending Dr: Bryant Orlando MD Ordering Physician: Bryant Orlando MD Date of Service: 11/28/24 Procedure(s): XR hips NIA min 3V Accession Number(s): [id number] cc: Bryant Orlando MD CLINICAL HISTORY: bilat. hip pain 4 view, pelvis and bilateral hips Comparison: None Findings: Moderate osteoarthritis of the right hip. Acvuvwpz-ja-ldlorr osteoarthritis of the left hip. Mild deformities of the imaged femurs appear old/chronic including flattening of the left femoral head. Portions of the pelvis obscured without definite acute displaced fracture. Moderate stool burden in the wykvk-an-tggy. IMPRESSION: Osteoarthritis of the both hips, left worse than right. 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 hip pain 4 view, pelvis and b ilateral hips Comparison: None Findings: Moderate osteoarthri tis of the right hip. Oakdhmtj-ck-hagqqv osteoarthritis of th e left hip. Mild deformities of the imaged femurs appear old/chronic i ncluding flattening of the left femoral head. Portions of the pelvis obscur ed without definite acute displaced fracture. Moderate stool burde n in the xcbdo-zp-zfnh. IMPRESSION: Osteoarthritis of th e both hips, left worse than right. This document has be en electronically signed by: Jaime Ramirez MD on 11/28/2024 20:15:18 Dictated By: Jaime Ramirez MD Signed By: <Electron ically signed by Jaime Ramirez MD in OV> 11/28/242014 DD/ 14 TD/TT: 11/28/242014 Dish Machine Operator: XR lumbar spine 2-3V (Not ye t reviewed by provider) Interpretation: Performing Lab: Notes/Report: [address] [address] XRay Report Signed Patient: Romeo Eldridge MR#: [id number] : 1955 Acct:[id number] Age/Sex: 69 / M ADM Date: 11/28/24 Loc: HO.CARD Attending Dr: Bryant Orlando MD Ordering Physician: Bryant Orlando MD Date of Service: 11/28/24 Procedure(s): XR lumbar spine 2-3V Accession Number(s): [id number] cc: Bryant Orlando MD CLINICAL HISTORY: lumbar back pain 3 views lumbar spine Comparison: None Findings: No acute compression fracture of the 5 lumbar type vertebrae. Trace retrolisthesis of the L1-L2 and trace anterolisthesis at L5-S1. Degenerative disc changes with disc height losses endplate sclerosis by radiographs. Facet arthropathy is multifocal most pronounced in the mid and lower lumbar spine. L4 and L5 pars are partly obscured without definite lysis. Degenerative changes include partially imaged hips and partially imaged SI joints. Sacrum is mostly obscured. IMPRESSION: 1. Degenerative changes include multifocal facet arthropathy by radiographs. 2. No acute compression fracture of the 5 lumbar vertebrae. This document has been electronically signed by: Jaime Ramirez MD on 11/28/2024 20:12:50 Dictated By: Jaime Ramirez MD Signed By: <Electronically signed by Jaime Ramirez MD in OV> 11/28/242012 DD/ 11 TD/TT: 11/28/242011 Dish Machine Operator: [place] [address] XRay Report Signed Patient: oRmeo Eldridge R#: [id number] : 1955 Acct:[id number] Age/Sex: 69 / M ADM Date: 11/28/24 Loc: HO.CARD Attending Dr: Bryant Orlando MD Ordering Physician: Bryant Orlando MD Date of Service: 11/28/24 Procedure(s): XR lum bar spine 2-3V Accession Number(s): [id number] cc: Bryant Orlando MD CLINICAL HISTORY: joyce mbar back pain 3 views lumbar spine Comparison: None Findings: No acute compression fracture of the 5 lumbar type vertebrae. Trace retrolisthesis of th e L1-L2 and trace anterolisthesis at L5-S1. Degenerative disc ch anges with disc height losses endplate sclerosis by radiographs. Facet a rthropathy is multifocal most pronounced in the mid and lower lumbar spi ne. L4 and L5 pars are partly obscured without definite lysis. Degenerative changes include partially imaged hips and partially imaged SI joints. Sacrum is mo stly obscured. IMPRESSION: 1. Degenerative madden ges include multifocal facet arthropathy by radiographs. 2. No acute compress ion fracture of the 5 lumbar vertebrae. This document has be en electronically signed by: Jaime Ramirez MD on 11/28/2024 20:12:50 Dictated By: Jaime Ramirez MD Signed By: <[place] gil[place] signed by Jaime Ramirez MD in OV> 11/28/242012 DD/ 11 TD/TT: 11/28/242011 Dish Machine Operator: XR sacrum coccyx min 2V (Not yet reviewed by provider) Interpretation: Performing Lab: Notes/Report: [address] [address] XRay Report Signed Patient: Romeo Eldridge MR#: [id number] : 1955 Acct:[id number] Age/Sex: 69 / M ADM Date: 11/28/24 Loc: [place] Attending Dr: Bryant Orlando MD Ordering Physician: Bryant Orlando MD Date of Service: 11/28/24 Procedure(s): XR sacrum coccyx min 2V Accession Number(s): [id number] cc: Bryant Orlando MD CLINICAL HISTORY: PAIN 3 views sacrum and coccyx Comparison: X-rays of the lumbar spine from 11/28/2024. Findings Sacrococcygeal junction angulation appears old/chronic with sclerosis and not further characterize by radiographs. Degenerative changes include imaged SI joints of the imaged hips. Vascular calcifications are multifocal. IMPRESSION: Degenerative changes include imaged SI joints of the imaged hips. This document has been electronically signed by: Jaime Ramirez MD on 11/28/2024 20:13:38 Dictated By: Jaime Ramirez MD Signed By: <Electronically signed by Jaime Ramirez MD in OV> 11/28/242013 DD/ 12 TD/TT: 11/28/242012 Dish Machine Operator: [address] [address] XRay Report Signed Patient: Romeo Eldridge MR#: [id number] : 1955 Acct:[id number] Age/Sex: 69 / M ADM Date: 11/28/24 Loc: [place] Attending Dr: Bryant Orlando MD Ordering Physician: Bryant Orlando MD Date of Service: 11/28/24 Procedure(s): XR sac rum coccyx min 2V Accession Number(s): [id number] cc: Bryant Orlando MD CLINICAL HISTORY: PAIN 3 views sacrum and coccyx Comparison: X-rays o f the lumbar spine from 11/28/2024. Findings Sacrococcygeal junct ion angulation appears old/chronic with sclerosis and not further characte rize by radiographs. Degenerative changes include imaged SI joints of the imaged hips. Vascular calcifications are multifocal. IMPRESSION: Degenerative changes include imaged SI joints of the imaged hips. This document has be en electronically signed by: Jaime Ramirez MD on 11/28/2024 20:13:38 Dictated By: Jaime Ramirez MD Signed By: <[place] g[place] signed by Jaime Ramirez MD in OV> 11/28/242013 DD/ 12 TD/TT: 11/28/242012 Dish Machine Operator: REASON FOR VISIT My left eye is red, Hypertension, Hearing loss, Obesity, Left shoulder pain, Coronary artery disease Medications Medication SIG (Take, Route, Frequency, Duration) Notes Start Date End Date Status Lisinopril 2.5 MG 1 tablet Orally Once a day 01/12/2024 Active dexAMETHasone 2 MG 1 tablet Orally twic e a day 06/23/2024 Active Metoprolol Succinate ER 25 MG 1 tablet Orally Once a day 01/12/2024 Active Aspirin 81 81 MG 1 tablet [...] is a former smoker Vital Signs Temperature 97.0 degrees Fahrenheit 11/29/19 25 Blood pressure systolic 138 mm Hg 11/29/19 25 Blood pressure diastolic 76 mm Hg 025 Heart Rate 69 /min 11/28/2024 Height 62.5 in 11/28/2024 Weight 207 lbs 11/28/2024 BMI 37.25 kg/m2 11/28/2024 Encounters Encounter Location Date Provider Diagnosis Bryant Orlando III, MD [address] [place] [address] [address] [place], [place] [address] 11/28/2024 Bryant Orlando Subconjunctival hemorrhage of left eye H11.32 ; Essential hypertension I10 ; Hearing loss, bilateral H91.93 ; Edentulous K08.109 ; Mixed hyperlipidemia E78.2 ; Obesity (BMI 30-39.9) E66.9 ; Venous stasis I87.8 ; Adhesive capsulitis of left shoulder M75.02 ; Coronary artery disease involving [place] coronary artery of [place] heart without angina pectoris I25.10 and Former smoker Z87.891 Assessments Encounter Date Diagnosis (ICD Code) Assessment Notes T reatment Notes Treatment Clinical Notes 11/28/2024 Subconjunctival hemorrhage of left eye (ICD-10 - H11.32) He was reassured that this would resolve. 11/28/2024 Essential hypertension (ICD-10 - I10) His blood pressure today is Within normal limits. We have discussed weight reduction and sodium restriction. A repeat visit in several weeks was arranged. His blood pressure will be treated if it remains at this level 11/28/2024 Hearing loss, bilateral (ICD-10 - H91.93) He has hearing aids but was not wearing them today. He will bring them next time he comes in to see if there are working properly. 11/28/2024 Edentulous (ICD-10 - K08.109) He was wearing dentures today. He says he is able to chew and swallow without difficulty. 11/28/2024 Mixed hyperlipidemia (ICD-10 - E78.2) His total cholesterol fasting is in range. Current therapy was continued without change. 11/28/2024 Obesity (BMI 30-39.9 ) (ICD-10 - E66.9) His body mass index is 36.7. He weighs 204 pounds.We have discussed weight reduction strategies today. We discussed his elevated blood pressure. He will lose weight at a rate of one half of a pound per week through a diet restricted in fat calories and sodium. 11/28/2024 Venous stasis (ICD-1 0 - I87.8) His venous stasis changes are mild and do not require therapy at this time. 11/28/2024 Adhesive capsulitis of left shoulder (ICD-10 - M75.02) I have offered to refer him to orthopedic surgery for injections. He is going to consider it. He may need lysis of the adhesions. 11/28/2024 Coronary artery disease involving [place] coronary artery of [place] heart without angina pectoris (ICD-10 - I25.10) His old records do not include documentation of a cardiac catheterization but do say that he had disease in his circumflex artery there was noncritical. His current medications were continued including the aspirin. 11/28/2024 Former smoker (ICD-1 0 - Z87.891) He stopped smoking in 2007. We made a plan to prevent relapse in times of stress and illness. Plan Of Treatment Medication Medication Name Sig Start Date Stop Date Notes Lisinopril 2.5 MG 1 tablet Orally Once a day 01/12/2024 dexAMETHasone 2 MG 1 tablet Orally twice a day 06/23/2024 Metoprolol Succinate ER 25 MG 1 tablet Orally Once a day 0 01/12/2024 Aspirin 81 81 MG 1 tablet Orally Once a day 01/12/2024 Omeprazole 20 MG 1 capsule Orally Once a day 07/13/2024 Gabapentin 300 MG 1 capsule Orally thr ee times a day 07/13/2024 Pending Test Test Name Order Date Echocardiogram 11/28/2024 Stress Test 11/28/2024 ECG 12 lead EKG 11/28/2024 XR hips NIA min 3V 11/28/2024 XR lumbar spine 2-3V 11/28/2024 XR sacrum coccyx min 2V 11/28/2024 Next Appt Details Follow Up: 4 Weeks, Reason: OV Provider Name:Bryant Orlando , 07/03/2025 02:45:00 PM, [address] [place] [address] [address], [place], [address], Provider Name:Bryant Orlando , 01/21/2026 02:30:00 PM, [address] [place] [address] [address], [place], [address], Progress Notes * Loreto ELDRIDGE:1955 (69 yo M)Acc No.[id number]:11/28/2024 Progress Notes Patient: Romeo MEJIA Provider: Neida Orlando MD :1955 A ge:69 Y S ex:Male Date:11/28/2024 Address:[address] [place], [place] [id number] Subjective: * Chief Complaints: * M y left eye is redHypertensionHearing lossObesityLeft shoulder painCoronary artery disease * HPI: C OVID-19 Screening: He comes to the office because he has had a very red left eye for 2 days. It is not painful and his vision is intact. On examination he had a moderate subconjunctival hemorrhage. The remainder of the eye was unremarkable. He was reassured that this would resolve. He also complains of bilateral pain in his buttocks with prolonged standing or sitting. Straight leg raising was positive on today's examination. It is likely this is nerve impingement in the lumbar spine. Plain x-rays were ordered and evaluation was begun. He brings up that he was told he had a leaky valve show a innovation manager in [place]. An echocardiogram will be done to evaluate this possibility. Questions H ave you had any new [...] Muscle aches d enies. P ainful joints L eft shoulder that is moderate. S ciatica d enies. W eakness d enies. S kin: Itching d enies. R rachelle d enies. S kin lesion(s)?denies. N eurologic: Difficulty speaking d enies. D izziness d enies.?Headache d enies. L ow back pain d enies. P sychiatric: Depressed mood d enies. * Medical History: * Surgical History: N eg[facility]oscopy in [facility] ttempt[facility] colon[facility], preparation inadequate 2022No history [...] T obacco Use/Smoking P pierre is a [facility] smoker H e was born in [facility]. 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 He has no roman catholic objection to blood transfusion. He has no children. He is not currently working. 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 {'Living Situation': 'Lives with [place]', 'Work Status': 'Retired'}. * Medications: T akingGabapentin 300 MG Capsule 1 capsule Orally three times a day Lisinopril 2.5 MG Tablet 1 tablet Orally Once a day Aspirin 81 81 MG Tablet Delayed Release 1 tablet Orally Once a day Metoprolol Succinate ER 25 MG Tablet Extended Release 24 Hour 1 tablet Orally Once a day dexAMETHasone 2 MG Tablet 1 tablet Orally twice a day Omeprazole 20 MG Capsule Delayed Release 1 capsule Orally Once a day Medication List reviewed and reconciled with the patientTaking Gabapentin 300 MG Capsule 1 capsule Orally three times a day Taking Lisinopril 2.5 MG Tablet 1 tablet Orally Once a day Taking Aspirin 81 81 MG Tablet Delayed Release 1 tablet Orally Once a day Taking Metoprolol Succinate ER 25 MG Tablet Extended Release 24 Hour 1 tablet Orally Once a day Taking dexAMETHasone 2 MG Tablet 1 tablet Orally twice a day Taking Omeprazole 20 MG Capsule Delayed Release 1 capsule Orally Once a day Medication List reviewed and reconciled with the patient * Allergies: N o Known Drug Allergyno[Allergies Verified] Objective: * Vitals: H t: 62.5, Wt:207, BMI:37.25, BP:138/76, HR:69, Temp:97.0, Ht-cm: 158.75, Wt-k.89. * Examination: G eneral Examination: GENERAL APPEARANCE: p sonal, well nourished, well developed, in no acute distress, calm and relaxed, obese, man. HEAD: a traumatic, normocephalic. EYES: e deepthi, perrla, anicteric, conjugate, Moderate subconjunctival hemorrhage left eye. EARS: n ormal. NOSE: s eptum intact. [...] or edema, Pain to range of motion left shoulder. PERIPHERAL PULSES: n ormal. NEUROLOGIC: a lert and oriented, cranial nerves 2-12 grossly intact, deep tendon reflexes 2+ symmetrical, motor strength normal upper and lower extremities, sensory exam intact. PSYCH: a lert, oriented. Assessment: * Assessment: 1. S ubconjunctival hemorrhage of left eye - H11.32 (Primary) N otes :He was reassured that this would resolve. 2 . E ssential hypertension - I10 N otes :His blood pressure today is Within normal limits. We have discussed weight reduction and sodium restriction. A repeat visit in several weeks was arranged. His blood pressure will be treated if it remains at this level 3 . H earing loss, bilateral - [...] in fat calories and sodium. 7 . V enous stasis - I87.8 N otes :His venous stasis changes are mild and do not require therapy at this time. 8 . A dhesive capsulitis of left shoulder - M75.02 N otes :I have offered to refer him to orthopedic surgery for injections. He is going to consider it. He may need lysis of the adhesions. 9 . C oronary artery disease involving [place] coronary artery of [place] heart without angina pectoris - I25.10 N otes :His old records do not include documentation of a cardiac catheterization but do say that he had disease in his circumflex artery there was noncritical. His current medications were continued including the aspirin. 1 0. F ormer smoker - Z87.891 N otes :He stopped smoking in 2007. We made a plan to prevent relapse in times of stress and illness. Plan: * Treatment: * Imaging: * I maging: Echocardiogram I maging: Stress Test I maging: ECG 12 lead EKG I maging: XR hips NIA min 3V (Performed Date - 11/28/2024) I maging: XR lumbar spine 2-3V (Performed Date - 11/28/2024) I maging: XR sacrum coccyx min 2V (Performed Date - 11/28/2024) * Procedure Codes: * Preventive Medicine: Counseling: [...] tobacco use and urged to quit. 0 11/28/2024 * Follow Up: 4 Weeks (Reason: OV) * Images: * Sign off status: Completed true * Provider: Neida Orlando MD Date: 0 11/28/2024 Generated for Terelli shanti/Sonal/eTransmitting on: 1 08/16/2024 [...] normocep halic EYES: eomi, perrla, anicte danielle, conjugate, Moderate subconjunctival hemorrhage left eye EARS: normal NOSE: septum intact NECK/THYROID: no [...] or edema, Pain to range of motion left shoulder LYMPH NODES: no enlarged lymph no bozena,spleen normal RECTAL EXAM: not examined PSYCH: alert, oriented ORAL CAVITY: normal, unremarkable
--- OUTSIDE RECORDS SUMMARY | 2024-12-26 11:45 | XMS_ITS ---
Author Organization Bryant Orlando III, MD Address [address] [place] [address] Care Team Providers Care Sugar Cane Farm Manager Name Role Phone Dr. Bryant Orlando III Primary Care Provider [phone] REASON FOR VISIT Follow up Social History Sex Assigned At : Social History Observation Description Sex Assigned At Male Encounters Encounter Location Date Provider Diagnosis Bryant Orlando III, MD [address] [place] [address] [place] [address] 12/26/2024 Bryant Orlando Plan Of Treatment Next Appt Details Provider Name:Bryant Orlando , 07/03/2025 02:45:00 PM, [address] [place] [address] [place], [address], Provider Name:Bryant Orlando , 01/21/2026 02:30:00 PM, [address] [place] [address] [place], [address], Progress Notes * Romeo ELDRIDGEDOB:1955 (70 yo M)Acc No.[id number]:12/26/2024 Progress Notes Patient: Romeo MEJIA Provider: Neida Orlando MD :1955 A ge:69 Y S ex:Male Date:12/26/2024 Address: [address] [place] Subjective: * Chief Complaints: * 1 . Follow up. * Medical History: Objective: * Vitals: Assessment: Plan: * Treatment: * Images: * The named appointment provid er may or may not be the originator of this progress note, and it is not deemed complete until electronically signed by the appointment provider. Sign off status: Pending * Provider: Neida Orlando MD Date: 0 12/26/2024 Generated for Sid moser/Sonal/Angel on: 1 08/16/2024 09:43 AM EST
--- OUTSIDE RECORDS SUMMARY | 2024-12-28 06:45 | XMS_ITS ---
Author Organization Bryant Orlando III, MD Address [address] [place] [address] [place] [address] Care Team Providers Care Group Managing Director Name Role Phone Dr. Bryant Orlando III Primary Care Provider Allergies Allergen (clinical drug ingredient) Drug/Non Drug Allergy documented on EMR Reaction Allergy Type Onset Date Status No Known Drug Allergy Unknown Drug Allergy Active Reason For Referral Reason lumbar back pain e valuate and treatment Diagnosis 1 Lumbar back pain (M5 4.50) Referral Organization Bryant Orlando III, MD Referring Provider First Name rByant Referring Provider Last Name Johanny Referring Provider Speciality Internal M edicine Referred Provider Spine and Sp [facility] Referred Provider Specialty Physical Med icine General Notes Autumn Bolden [facility] 12/29 01:36:49 PM >ref/demo/progress note /x rays faxed to [facility], Autumn Bolden [facility] 01/16/2025 01:52:31 PM >Copy of MRI faxed to [facility] Referral Priority Routine Referral Appointment Date 02/26/2025 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, 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, Low back muscle spasm, Hypertension, Hearing loss, Obesity Medications Medication SIG (Take, Route, Frequency, Duration) Notes Start Date End Date Status Omeprazole 20 MG 1 capsule Orally Onc e a day for 90 days 12/28/2024 Active Gabapentin 300 MG 1 capsule Orally thr ee times a day 07/13/2024 Active Lisinopril 2.5 MG 1 tablet Orally Once a day 01/12/2024 Active Aspirin 81 81 MG 1 tablet Orally Once a day 01/12/2024 Active Metoprolol Succinate ER 25 MG 1 tablet Orally Once a day for 90 days 01/12/2024 Active dexAMETHasone 2 MG 1 tablet Orally twic e a day 06/23/2024 Active Omeprazole 20 MG 1 capsule Orally Onc e a day 07/13/2024 Active Social History Tobacco Use: Social History Observation Description Date Details (start date - stop date) Former Smoker NA - NA Sex Assigned At : Social History Observation Description Sex Assigned At Male Tobacco Use/Smoking Question Answer Notes Patient is a former smoker Vital Signs Temperature 96.6 degrees Fahrenheit 12/29/19 25 Blood pressure systolic 139 mm Hg 12/29/19 25 Blood pressure diastolic 78 mm Hg 025 Heart Rate 83 /min 12/28/2024 Height 62.5 in 12/28/2024 Weight 209 lbs 12/28/2024 BMI 37.61 kg/m2 12/28/2024 Encounters Encounter Location Date Provider Diagnosis Bryant Orlando III, MD [address] [place] [address] [place] [address] 12/28/2024 Bryant Orlando Lumbar back pain M54 .50 ; Coronary artery disease involving [place] coronary artery of lyt[place] heart without angina pectoris I25.10 ; Adhesive capsulitis of left shoulder M75.02 ; Obesity (BMI 30-39.9) E66.9 ; Former smoker Z87.891 and Subconjunctival hemorrhage of left eye H11.32 Assessments Encounter Date Diagnosis (ICD Code) Assessment Notes T reatment Notes Treatment Clinical Notes 12/28/2024 Lumbar back pain (ICD-10 - M54.50) 12/28/2024 Coronary artery disease involving l[place] coronary artery of lyt[place] heart without angina pectoris (ICD-10 - I25.10) His old records do not include documentation of a cardiac catheterization but do say that he had disease in his circumflex artery there was noncritical. His current medications were continued including the aspirin. 12/28/2024 Adhesive capsulitis of left shoulder (ICD-10 - M75.02) I have offered to refer him to orthopedic surgery for injections. He is going to consider it. He may need lysis of the adhesions. 12/28/2024 Obesity (BMI 30-39.9 ) (ICD-10 - E66.9) His body mass index is 36.7. He weighs 204 pounds.We have discussed weight reduction strategies today. We discussed his elevated blood pressure. He will lose weight at a rate of one half of a pound per week through a diet restricted in fat calories and sodium. 12/28/2024 Former smoker (ICD-1 0 - Z87.891) He stopped smoking in 2007. We made a plan to prevent relapse in times of stress and illness. 12/28/2024 Subconjunctival hemorrhage of left eye (ICD-10 - H11.32) This is completely resolved Plan Of Treatment Medication Medication Name Sig Start Date Stop Date Notes Omeprazole 20 MG 1 capsule Orally Once a day for 90 days 12/28/2024 Gabapentin 300 MG 1 capsule Orally three times a day 07/13/2024 Lisinopril 2.5 MG 1 tablet Orally Once a day 01/12/2024 Aspirin 81 81 MG 1 tablet Orally Once a day 01/12/2024 Metoprolol Succinate ER 25 MG 1 tablet Orally Once a day for 90 days 01/12/2024 Metoprolol Succinate 25 MG 1 capsule Orally Once a day for 90 days 12/28/2024 Sent cancelation to pharmacy new RX to follow dexAMETHasone 2 MG 1 tablet Orally twice a day 06/23/2024 Omeprazole 20 MG 1 capsule Orally Once a day 07/13/2024 Referrals Referral Date Details 12/28/2024 12/28/2024, lumbar b ack pain evaluate and treatment, [facility] Next Appt Details Follow Up: as scheduled for annual exam, Reason: annual exam Provider Name:Bryant Orlando , 07/03/2025 02:45:00 PM, [address] [place] [address] [address], [place], [phone], Provider Name:Bryant Orlando , 01/21/2026 02:30:00 PM, [address] [place] [address] [address], [place], [phone], Progress Notes * Romeo ELDRIDGEDOB:1955 (69 yo M)Acc No.[id number]:12/28/2024 Progress Notes Patient: Romeo MEJIA Provider: Nieda Orlando MD :1955 A ge:69 Y S ex:Male Date:12/28/2024 Address:[address] [place], [place] [id number] Subjective: * Chief Complaints: * R equest for PCA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Low back muscle spasmHypertensionHearing lossObesity * HPI: C OVID-19 Screening: Hawk mcmahan returns with several issues. He has been having atypical exertional anginal type chest pain, and he is going to have a stress test tomorrow. He has been having muscle spasms in his back along the lumbar spine which make it difficult to walk and her severe. I have ordered an MRI of his lumbar spine and some physical therapy and given him a prescription for cyclobenzaprine. He has requested a referral to [facility] for a personal consultant. Questions H ave you had any new onset fever, chills, cough, congestion, sore throat, shortness of breath, muscle aches? N o * ROS: G eneral/Constitutional: pain L ow back pain. C hills d enies. F atigue?admits. F ever d enies. E NT: Decreased hearing d enies. R espiratory: Cough d enies. C ardiovascular: Chest pain with exertion o ccurred frequently. D yspnea on exertion d enies. S hortness of breath d enies. G [...] nce a night. M usculoskeletal: Muscle aches P aravertebral. P ainful joints d enies. S ciatica d enies. W eakness d enies. S kin: Itching d enies. R rachelle d enies. S kin lesion(s)?denies. N eurologic: Difficulty speaking d enies. D izziness d enies.?Headache d enies. L ow back pain t hat is new. P sychiatric: Depressed mood d enies. * Medical History: * Surgical History: N egative upper endoscopy in [facility] ttempted colonoscopy, preparation inadequate 2022No history [...] ormer smoker H e was born in [facility]. 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 He has no moravian objection to blood transfusion. He has no children. He is not currently working. 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 {'Living Situation': 'Lives with [place]', 'Work Status': 'Retired'}. * Medications: T akingGabapentin [...] * Vitals: H t: 62.5, Wt:209, BMI:37.61, BP:139/78, HR:83, Temp:96.6, Ht-cm: 158.75, Wt-k.8. * Examination: G eneral Examination: GENERAL APPEARANCE: [...] sounds normal, no ascites, no organomegaly, no mass, centripital obesity. RECTAL EXAM: n ot examined. MUSCULOSKELETAL: e xtremities unremarkable, no clubbing, cyanosis or edema, Muscle spasm along lumbar spine,, decreased range of motion lumbar spine. PERIPHERAL PULSES: n ormal. NEUROLOGIC: a lert and oriented, cranial nerves 2-12 grossly intact, deep tendon reflexes 2+ symmetrical, motor strength normal upper and lower extremities, sensory exam intact. PSYCH: a lert, oriented. Assessment: * Assessment: 1. C oronary artery disease involving lyt[place] coronary artery of lytton heart without angina pectoris - I25.10 (Primary) N otes :His old records do not include documentation of a cardiac catheterization but do say that he had disease in his circumflex artery there was noncritical. His current medications were continued including the aspirin. 2 . L umbar back pain - M54.50 3 . A dhesive capsulitis of left shoulder - M75.02 N otes :I have offered to refer him to orthopedic surgery for injections. He is going to consider it. He may need lysis of the adhesions. 4 . O besity (BMI 30-39.9) - E66.9 N otes :His body mass index is 36.7. He weighs 204 pounds.We have discussed weight reduction strategies today. We discussed his elevated blood pressure. He will lose weight at a rate of one half of a pound per week through a diet restricted in fat calories and sodium. 5 . F ormer smoker - Z87.891 N otes :He stopped smoking in 2007. We made a plan to prevent relapse in times of stress and illness. 6 . S ubconjunctival hemorrhage of left eye - H11.32 N otes :This is completely resolved Plan: * Treatment: 2. O thers Continue Gabapentin Capsule, 300 MG, 1 capsule, Orally, three times a day; C ontinue Lisinopril Tablet, 2.5 MG, 1 tablet, Orally, Once a day; C ontinue Aspirin 81 Tablet Delayed Release, 81 MG, 1 tablet, Orally, Once a day; C ontinue Metoprolol Succinate ER Tablet Extended Release 24 Hour, 25 MG, 1 tablet, Orally, Once a day, 90 days, 90 Tablet, Refills 3; C ontinue dexAMETHasone Tablet, 2 MG, 1 tablet, Orally, twice a day; C ontinue Omeprazole Capsule Delayed Release, 20 MG, 1 capsule, Orally, Once a day; S top Metoprolol Succinate Capsule ER 24 Hour Sprinkle, 25 MG, 1 capsule, Orally, Once a day, 90 days, 90 Capsule, Notes to Pharmacist: Sent cancelation to pharmacy new RX to follow; S tart Omeprazole Capsule Delayed Release, 20 MG, 1 capsule, Orally, Once a day, 90 days, 90 Capsule, Refills 3. * Procedure Codes: * Preventive Medicine: Counseling: [...] tobacco use and urged to quit. 0 12/28/2024 * Follow Up: a s scheduled for annual exam (Reason: annual exam) * Images: * Sign off status: Completed true * Provider: Neida Orlando MD Date: 0 12/28/2024 Generated for Sid moser/Sonal/eTransmitting on: 1 08/16/2024 09:42 AM EST History and Physical Notes * [...] sounds normal, no ascites, no organomegaly, no mass, centripital obesity NEUROLOGIC: alert and oriented, cranial nerves 2-12 grossly intact, deep tendon reflexes 2+ symmetrical, motor strength normal upper and lower extremities, sensory exam intact SKIN: no suspicious lesion s, anicteric PERIPHERAL PULSES: normal BREASTS: no masses palpable b ilaterally MUSCULOSKELETAL: extremities unremark able, no clubbing, cyanosis or edema, Muscle spasm along lumbar spine,, decreased range of motion lumbar spine LYMPH NODES: no enlarged lymph no bozena,spleen normal RECTAL EXAM: not examined PSYCH: alert, oriented ORAL CAVITY: normal, unremarkable Consultation Request Notes Referral Date Referring Provider Referred Provider Not kaushik 12/28/2024 [facility]
--- OUTSIDE RECORDS SUMMARY | 2025-01-17 09:30 | XMS_ITS ---
Author Organization Bryant Orlando III, MD Address [address] [place] [place] [address] Care Team Providers Care Credit Historian Name Role Phone Dr. Bryant Orlando III Primary Care Provider Allergies Allergen (clinical drug ingredient) Drug/Non Drug Allergy documented on EMR Reaction Allergy Type Onset Date Status No Known Drug Allergy Unknown Drug Allergy Active Reason For Referral Reason Consult and Treat Diagnosis 1 Ischemic heart disea se (I25.9) Diagnosis 2 Chest pain due to my ocardial ischemia, unspecified ischemic chest pain type (I25.9) Referral Organization Bryant Orlando III, MD Referring Provider First Name Bryant Referring Provider Last Name Johanny Referring Provider Speciality Internal M edicine Referred Provider Thai Mistry [facility] er, Cardiology Referred Provider Specialty Cardiology General Notes Vera Samirjaya ASMPapi 06/2024 02:27:50 PM > Faxed referral to [facility] Cardiology Referral Priority Routine REASON FOR VISIT Annual Exam Medications Medication SIG (Take, Route, Frequency, Duration) Notes Start Date End Date Status Aspirin 81 81 MG 1 tablet Orally Once a day 01/12/2024 Active Omeprazole 20 MG 1 capsule Orally Onc e a day 12/28/2024 Active Metoprolol Succinate ER 25 MG 1 tablet Orally Once a day 01/12/2024 Active dexAMETHasone 2 MG 1 tablet Orally twic e a day 06/23/2024 Active Lisinopril 2.5 MG 1 tablet Orally [...] smoker Vital Signs Temperature 97.0 degrees Fahrenheit 01/18/20 25 Blood pressure systolic 143 mm Hg 01/18/20 25 Blood pressure diastolic 80 mm Hg 025 Heart Rate 64 /min 01/17/2025 Height 62.5 in 01/17/2025 Weight 206 lbs 01/17/2025 BMI 37.07 kg/m2 01/17/2025 Encounters Encounter Location Date Provider Diagnosis Bryant Orlando III, MD [address] [place] [address] [place] [address] 01/17/2025 Bryant Orlando Ischemic heart disea se I25.9 ; Hearing loss, bilateral H91.93 ; Essential hypertension I10 ; Edentulous K08.109 ; Mixed hyperlipidemia E78.2 ; Obesity (BMI 30-39.9) E66.9 ; Coronary artery disease involving [place] coronary artery of [place] heart without angina pectoris I25.10 ; Venous stasis I87.8 ; Adhesive capsulitis of left shoulder M75.02 and Former smoker Z87.891 Assessments Encounter Date Diagnosis (ICD Code) Assessment Notes Treat ment Notes Treatment Clinical Notes 01/17/2025 Ischemic heart disease (ICD-10 - I25.9) He has a history of coronary artery disease when he was living in the [facility] but I do not have the records. They will be requested again. He has been having some chest pains lately of indeterminate cause. An echocardiogram showed some anteroseptal hypokinesis. I will order a stress test. His blood pressure needs better control and I will increase the metoprolol tartrate. I have referred him to cardiology for definitive diagnosis and treatment. 01/17/2025 Hearing loss, bilateral (ICD-10 - H91.93) He has hearing aids but was not wearing them today. He will bring them next time he comes in to see if there are working properly. 01/17/2025 Essential hypertension (ICD-10 - I10) His blood pressure today is Within normal limits. We have discussed weight reduction and sodium restriction. A repeat visit in several weeks was arranged. His blood pressure will be treated if it remains at this level 01/17/2025 Edentulous (ICD-10 - K08.109) He was wearing dentures today. He says he is able to chew and swallow without difficulty. 01/17/2025 Mixed hyperlipidemia (ICD-10 - E78.2) His total cholesterol fasting is in range. Current therapy was continued without change. 01/17/2025 Obesity (BMI 30-39.9) (ICD-10 - E66.9) His body mass index is 37. He weighs 206 pounds.We have discussed weight reduction strategies today. We discussed his elevated blood pressure. He will lose weight at a rate of one half of a pound per week through a diet restricted in fat calories and sodium. 01/17/2025 Coronary artery disease involving [place] coronary artery of [place] heart without angina pectoris (ICD-10 - I25.10) His old records do not include documentation of a cardiac catheterization but do say that he had disease in his circumflex artery there was noncritical. His current medications were continued including the aspirin. 01/17/2025 Venous stasis (ICD-10 - I87.8) His venous stasis changes are mild and do not require therapy at this time. 01/17/2025 Adhesive capsulitis of left shoulder (ICD-10 - M75.02) I have offered to refer him to orthopedic surgery for injections. He is going to consider it. He may need lysis of the adhesions. 01/17/2025 Former smoker (ICD-10 - Z87.891) He stopped smoking in 2007. We made a plan to prevent relapse in times of stress and illness. Plan Of Treatment Medication Medication Name Sig Start Date Stop Date Notes Aspirin 81 81 MG 1 tablet Orally Once a day 01/12/2024 Omeprazole 20 MG 1 capsule Orally Once a day 12/28/2024 Metoprolol Succinate ER 25 MG 1 tablet Orally Once a day 0 01/12/2024 dexAMETHasone 2 MG 1 tablet Orally twice a day 06/23/2024 Lisinopril 2.5 MG 1 tablet Orally Once a day 01/12/2024 Gabapentin 300 MG 1 capsule Orally thr ee times a day 07/13/2024 Referrals Referral Date Details 01/19/2025 01/19/2025, Consult and Treat, Cardiology [facility] Next Appt Details Follow Up: 4 Weeks, Reason: OV Provider Name:Bryant Orlando , 07/03/2025 02:45:00 PM, [address] [place] [address] [address], [address], [place], [id number], Provider Name:Bryant Orlando , 01/21/2026 02:30:00 PM, [address] [place] [address] [address], [place], [id number], Progress Notes * Romeo ELDRIDGEDOB:1955 (69 yo M)Acc No.[id number]:01/17/2025 Progress Notes Patient: Romeo MEJIA Provider: Neida Orlando MD :1955 A ge:69 Y S ex:Male Date:01/17/2025 Address:[address] [place] [address] [id number] Subjective: * Chief Complaints: * A nnual Exam * HPI: D epression Screening: He returns to the office today at the age of 69, for his annual physical examination.He is followed here for hypertension, hearing loss, lipids, obesity, and left shoulder pain, venous stasis, coronary artery disease and lumbar back pain. On his last visit he complained of exertional chest pain on several occasions. On a n echocardiogram, December 29, 2024 there was some anteroseptal Hypokinesis, but a normal ejection fraction. He has had no further chest pain. He will be referred to cardiology for evaluation and treatment. H is breathing comfortably today.His vital signs are stable. PHQ-9 L ittle interest or pleasure in doing things?Not at all F eeling down, depressed, or hopeless N ot at all T rouble falling or staying asleep, or sleeping too much N ot at all F eeling tired or having little energy N early every day P oor appetite or overeating N ot at all F eeling bad about yourself or that you are a failure, or have let yourself or your family down N ot at all T rouble concentrating on things, such as reading the newspaper or watching television N ot at all M oving or speaking so slowly that other people could have noticed; or the opposite, being so fidgety or restless that you have been moving around a lot more than usual N ot at all T houghts that you would be better off or of hurting yourself in some way N ot at all T otal Score 3 I nterpretation M inimal Depression C OVID-19 Screening: Questions H ave you had any new onset fever, chills, cough, congestion, sore throat, shortness of breath, muscle aches? N o S RAJWINDER Questions: SDOH Questions I n the past year have you been worried about losing your housing? N o I n the past year have you or any family members you live with been unable to get any of the following when it was really needed? Check all that apply: N one * ROS: G eneral/Constitutional: pain L eft shoulder. C hills d enies. F atigue?admits. F ever d enies. E NT: Decreased hearing i n both ears. R espiratory: Cough d enies. C ardiovascular: Chest pain with exertion o ccurred occasionally. D yspnea on exertion d enies. S [...] Surgical History: N egative upper endoscopy in [facility] ttempted colonoscopy, preparation inadequate 2022No history * [...] History: T obacco Use: T obacco Use/Smoking Vera jay is a f ormer smoker H martir was born in [facility]. 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 He has no presybeterian objection to blood transfusion. He has no children. He is not currently working. 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 {'Living Situation': 'Lives with [place]', 'Work Status': 'Retired'}. * Medications: T akingGabapentin 300 MG Capsule 1 capsule Orally three times a day Lisinopril 2.5 MG Tablet 1 tablet Orally Once a day Aspirin 81 81 MG Tablet Delayed Release 1 tablet Orally Once a day Metoprolol Succinate ER 25 MG Tablet Extended Release 24 Hour 1 tablet Orally Once a day Omeprazole 20 MG Capsule Delayed Release 1 capsule Orally Once a day Taking Gabapentin 300 MG Capsule 1 capsule Orally three times a day Taking Lisinopril 2.5 MG Tablet 1 tablet Orally Once a day Taking Aspirin 81 81 MG Tablet Delayed Release 1 tablet Orally Once a day Taking Metoprolol Succinate ER 25 MG Tablet Extended Release 24 Hour 1 tablet Orally Once a day Taking Omeprazole 20 MG Capsule Delayed Release 1 capsule Orally Once a day Not-Taking/PRNdexAMETHasone 2 MG Tablet 1 tablet Orally twice a day Not-Taking/PRN dexAMETHasone 2 MG Tablet 1 tablet Orally twice a day DiscontinuedOmeprazole 20 MG Capsule Delayed Release 1 capsule Orally Once a day Medication List reviewed and reconciled with the patientDiscontinued Omeprazole 20 MG Capsule Delayed Release 1 capsule Orally Once a day Medication List reviewed and reconciled with the patient * Allergies: N o Known Drug Allergyno[Allergies Verified] Objective: * Vitals: H t: 62.5, Wt:206, BMI:37.07, BP:143/80, HR:64, Temp:97.0, Ht-cm: 158.75, Wt-k.44. * Examination: G eneral Examination: GENERAL APPEARANCE: p leasant, well nourished, well developed, in no acute distress, calm and relaxed: obese: man. HEAD: a traumatic, normocephalic. EYES: e [...] sounds normal, no ascites, no organomegaly, no mass: centripital obesity. RECTAL EXAM: n ot examined. MUSCULOSKELETAL: e xtremities unremarkable, no clubbing, cyanosis or edema. PERIPHERAL PULSES: n ormal. NEUROLOGIC: a lert and oriented, cranial nerves 2-12 grossly intact, deep tendon reflexes 2+ symmetrical, motor strength normal upper and lower extremities, sensory exam intact. PSYCH: a lert, oriented. Assessment: * Assessment: 1. I schemic heart disease - I25.9 (Primary) N otes :He has a history of coronary artery disease when he was living in the [facility] but I do not have the records. They will be requested again. He has been having some chest pains lately of indeterminate cause. An echocardiogram showed some anteroseptal hypokinesis. I will order a stress test. His blood pressure needs better control and I will increase the metoprolol tartrate. I have referred him to cardiology for definitive diagnosis and treatment. 2 . H earing loss, bilateral - H91.93 N otes :He has hearing aids but was not wearing them today. He will bring them next time he comes in to see if there are working properly. 3 . E ssential hypertension - I10 N otes :His blood pressure today is Within normal limits. We have discussed weight reduction and sodium restriction. A repeat visit in several weeks was arranged. His blood pressure will be treated if it remains at this level 4 . E dentulous - K08.109 N otes :He was wearing dentures today. He says he is able to chew and swallow without difficulty. 5 . M ixed hyperlipidemia - E78.2 N otes :His total cholesterol fasting is in range. Current therapy was continued without change. 6 . O besrubén (BMI 30-39.9) - E66.9 N otes :His body mass index is 37. He weighs 206 pounds.We have discussed weight reduction strategies today. We discussed his elevated blood pressure. He will lose weight at a rate of one half of a pound per week through a diet restricted in fat calories and sodium. 7 . C oronary artery disease involving [place] coronary artery of [place] heart without angina pectoris - I25.10 N otes :His old records do not include documentation of a cardiac catheterization but do say that he had disease in his circumflex artery there was noncritical. His current medications were continued including the aspirin. 8 . V enous stasis - I87.8 N otes :His venous stasis changes are mild and do not require therapy at this time. 9 . A dhesive capsulitis of left shoulder - M75.02 N otes :I have offered to refer him to orthopedic surgery for injections. He is going to consider it. He may need lysis of the adhesions. 1 0. F ormer smoker - Z87.891 N otes :He stopped smoking in 2007. We made a plan to prevent relapse in times of stress and illness. Plan: * Treatment: 2. O thers Continue Gabapentin Capsule, 300 MG, 1 capsule, Orally, three times a day; C ontinue Lisinopril Tablet, 2.5 MG, 1 tablet, Orally, Once a day; C ontinue Aspirin 81 Tablet Delayed Release, 81 MG, 1 tablet, Orally, Once a day; C ontinue Metoprolol Succinate ER Tablet Extended Release 24 Hour, 25 MG, 1 tablet, Orally, Once a day; C ontinue dexAMETHasone Tablet, 2 MG, 1 tablet, Orally, twice a day; C ontinue Omeprazole Capsule Delayed Release, 20 MG, 1 capsule, Orally, Once a day. Referral To:Cardiology [facility] Cardiology Reason:Consult and Treat * Procedure Codes: * Preventive Medicine: Counseling: [...] tobacco use and urged to quit. 0 01/17/2025 * Follow Up: 4 Weeks (Reason: OV) * Images: * Sign off status: Completed true * Provider: Neida Orlando MD Date: 0 01/17/2025 Generated for [employer] shanti/Sonal/eTransmitting on: 1 08/16/2024 09:43 AM EST History and Physical Notes * HPI (History of Present Illness) Category Sub-Category Detail Notes Depression Screening PHQ-9 Little inte rest or pleasure in doing things: Not at all Feeling down, depressed, or hopeless: No t at all Trouble falling or staying asleep, or sl eeping too much: Not at all Feeling tired or having little energy: N early every day Poor appetite or overeating: Not at all Feeling bad about yourself o r that you are a failure, or have let yourself or your family down: Not at all Trouble concentrating on thi ngs, such as reading the newspaper or watching television: Not at all Moving or speaking so slowly that other people could have noticed; or the opposite, being so fidgety or restless that you have been moving around a lot more than usual: Not at all Thoughts that you would be b mita off or of hurting yourself in some way: Not at all Total Score: 3 Interpretation: Minimal Depression COVID-19 Screening Questions Have you had any new onset fever, chills, cough, congestion, sore throat, shortness of breath, muscle aches?: No SDOH Questions SDOH Questions In the past year have you been worried about losing your housing?: No In the past year have you or any family members you live with been unable to get any of the following when it was really needed? Check all that apply:: None Examination Category Sub-Category Detail Notes General Examination GENERAL APPEARANCE: pleasant , well nourished, well developed, in no acute distress, calm and relaxed: obese: man HEAD: atraumatic, normocep halic EYES: eomi, perrla, anicte danielle, conjugate EARS: normal NOSE: septum intact NECK/THYROID: no jugular venous di stention, no carotid bruit, thyroid normal HEART: no clicks, gallops, murmurs, or rubs, regular rhythm, S1, S2 normal, no s3, or vascular bruits LUNGS: clear to auscultatio n ABDOMEN: bowel sounds normal, no ascites, no organomegaly, no mass: centripital obesity NEUROLOGIC: alert and oriented, cranial [...] Date Referring Provider Referred Provider Not kaushik 01/19/2025 Johanny [facility], Elías diology Consult and Treat
--- OUTSIDE RECORDS SUMMARY | 2025-02-13 09:45 | XMS_ITS ---
Author Organization Bryant Orlando III, MD Address [address] [place] [address] Care Team Providers Care School Operations Manager Name Role Phone Dr. Bryant Orlando III Primary Care Provider Allergies Allergen (clinical drug ingredient) Drug/Non Drug Allergy documented on EMR Reaction Allergy Type Onset Date Status No Known Drug Allergy Unknown Drug Allergy Active REASON FOR VISIT Hypertension, Hearing loss, Edentulous, Hyperlipidemia, Obesity, Left shoulder pain, Coronary artery disease Medications Medication SIG (Take, Route, Frequency, Duration) Notes Start Date End Date Status Omeprazole 20 MG 1 capsule Orally Onc e a day 12/28/2024 Active Aspirin 81 81 MG 1 tablet Orally Once a day 01/12/2024 Active Lisinopril 2.5 MG 1 tablet Orally Once a day 01/12/2024 Active Gabapentin 300 MG 1 capsule Orally thr ee times a day 07/13/2024 Active Fluticasone Propionate 50 MCG/ACT 2 spray in each nostril Nasally Twice a day As needed Active dexAMETHasone 2 MG 1 tablet Orally twic e a day 06/23/2024 Active Metoprolol Succinate ER 25 MG 1 tablet Orally Once a day 01/12/2024 Active Fluticasone Propionate 93 MCG/ACT 2 sprays (1 spray in each nostril) Nasally Twice a day for 30 days 02/13/2025 Active Social History Tobacco Use: Social History Observation Description Date Details (start date - stop date) Former Smoker NA - NA Sex Assigned At : Social History Observation Description Sex Assigned At Male Tobacco Use/Smoking Question Answer Notes Patient is a former smoker Problems Problem Type SNOMED Code ICD Code Onset Dates Problem Status W/U Status Risk Notes Problem 108667065 Deviated nasal septum (J34.2) Active confirmed Gave him a prescription for Flonase because of the congestion. If this does not solve the problem he will have a referral to ENT. Problem 64252106 Nasal congestion (R09.81) Active confirmed I gave him a prescription for Flonase. Vital Signs Temperature 97.3 degrees Fahrenheit 02/14/20 25 Blood pressure systolic 148 mm Hg 02/14/20 25 Blood pressure diastolic 82 mm Hg 025 Heart Rate 65 /min 02/13/2025 Height 62.5 in 02/13/2025 Weight 209 lbs 02/13/2025 BMI 37.61 kg/m2 02/13/2025 Encounters Encounter Location Date Provider Diagnosis Bryant Orlando III, MD [address] [place] [address] [place] [address] 02/13/2025 Bryant Orlando Deviated nasal septu m J34.2 ; Nasal congestion R09.81 ; Adhesive capsulitis of left shoulder M75.02 ; Hearing loss, bilateral H91.93 ; Edentulous K08.109 ; Mixed hyperlipidemia E78.2 ; Obesity (BMI 30-39.9) E66.9 ; Coronary artery disease involving [place] coronary artery of [place] heart without angina pectoris I25.10 ; Former smoker Z87.891 and Lumbar back pain M54.50 Assessments Encounter Date Diagnosis (ICD Code) Assessment Notes Treat ment Notes Treatment Clinical Notes 02/13/2025 Deviated nasal septum (ICD-10 - J34.2) Gave him a prescription for Flonase because of the congestion. If this does not solve the problem he will have a referral to ENT. 02/13/2025 Nasal congestion (ICD-10 - R09.81) I gave him a prescription for Flonase. 02/13/2025 Adhesive capsulitis of left shoulder (ICD-10 - M75.02) I have offered to refer him to orthopedic surgery for injections. He is going to consider it. He may need lysis of the adhesions. 02/13/2025 Hearing loss, bilateral (ICD-10 - H91.93) He has hearing aids but was not wearing them today. He will bring them next time he comes in to see if there are working properly. 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 He says he is able to chew and swallow without difficulty. 02/13/2025 Mixed hyperlipidemia (ICD-10 - E78.2) His total cholesterol fasting is in range. Current therapy was continued without change. 02/13/2025 Obesity (BMI 30-39.9) (ICD-10 - E66.9) His body mass index is 37. He weighs 206 pounds.We have discussed weight reduction strategies today. We discussed his elevated blood pressure. He will lose weight at a rate of one half of a pound per week through a diet restricted in fat calories and sodium. 02/13/2025 Coronary artery disease involving [place] coronary artery of [place] heart without angina pectoris (ICD-10 - I25.10) His old records do not include documentation of a cardiac catheterization but do say that he had disease in his circumflex artery there was noncritical. His current medications were continued including the aspirin. 02/13/2025 Former smoker (ICD-10 - Z87.891) He stopped smoking in 2007. We made a plan to prevent relapse in times of stress and illness. 02/13/2025 Lumbar back pain (ICD-10 - M54.50) The back pain persists but is slightly better. The gabapentin low-dose gives him mild relief. The gabapentin was increased. The dexamethasone has been discontinued. He will continue to use heat and rest. I have referred him to pain management. Plan Of Treatment Medication Medication Name Sig Start Date Stop Date Notes Omeprazole 20 MG 1 capsule Orally Onc e a day 12/28/2024 Aspirin 81 81 MG 1 tablet Orally Once a day 01/12/2024 Lisinopril 2.5 MG 1 tablet Orally Once a day 01/12/2024 Gabapentin 300 MG 1 capsule Orally thr ee times a day 07/13/2024 Fluticasone Propionate 50 MCG/ACT 2 spray in each nostril Nasally Twice a day dexAMETHasone 2 MG 1 tablet Orally twic e a day 06/23/2024 Metoprolol Succinate ER 25 MG 1 tablet Orally Once a day 0 01/12/2024 Fluticasone Propionate 93 MCG/ACT 2 sprays (1 spray in each nostril) Nasally Twice a day for 30 days 02/13/2025 Next Appt Details Follow Up: 6 Weeks, Reason: OV Provider Name:Bryant Orlando , 07/03/2025 02:45:00 PM, [address] [facility] [address], [place], [address], Provider Name:Bryant Orlando , 01/21/2026 02:30:00 PM, [address] [facility] [address], [place], [address], Progress Notes * Romeo ELDRIDGEDOB:1955 (69 yo M)Acc No.[id number]:02/13/2025 Progress Notes Patient: Romeo MEJIA Provider: Neida Orlando MD :1955 A ge:69 Y S ex:Male Date:02/13/2025 Address:[address] [place] [address] [place] [facility] Subjective: * Chief Complaints: * H ypertensionHearing lossEdentulousHyperlipidemiaObesityLeft shoulder painCoronary artery disease * HPI: C OVID-19 Screening: He returns to the office for a scheduled for ongoing visit for medical management. We completed a health care proxy today. He designated his sister, Jazmyn.He complains of difficulty breathing recently. Questioning reveals that this is primarily nasal obstruction. Examination showed his nasal septum the strongly deviated to the left. He was given a prescription for fluticasone proprionate nights nasal spray. If this does not help he will be sent for ENT foor evaluation for treatment. Questions H ave you had any new onset fever, chills, cough, congestion, sore throat, shortness of breath, muscle aches? N o * ROS: G eneral/Constitutional: pain C hronic low back pain. C hills d enies. F atigue a dmits. F ever d enies. E [...] Surgical History: N egative upper endoscopy in [facility] ttempted colonoscopy, preparation inadequate 2022No history [...] ormer smoker H martir was born in [facility]. 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 He has no anabaptism objection to blood transfusion. He has no children. He is not currently working. 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 {'Living Situation': 'Lives with [place]', 'Work Status': 'Retired'}. * Medications: T akingGabapentin [...] * Vitals: H t: 62.5, Wt:209, BMI:37.61, BP:148/82, HR:65, Temp:97.3, Ht-cm: 158.75, Wt-k.8. * Examination: G eneral Examination: GENERAL APPEARANCE: p sonal, well nourished, well developed, in no acute distress, calm and relaxed: obese: man. HEAD: a traumatic, normocephalic. EYES: e deepthi, perrla, anicteric, conjugate. EARS: n ormal. NOSE: S eptum deviates to left. ORAL CAVITY: n ormal, unremarkable. NECK/THYROID: n o jugular venous distention, no carotid bruit, thyroid normal. LYMPH NODES: n o enlarged lymph nodes,spleen normal. SKIN: n o suspicious lesions, anicteric. HEART: n o clicks, gallops, murmurs, or rubs, regular rhythm, S1, S2 normal, no s3, or vascular bruits. LUNGS: : diminished breath sounds throughout. BREASTS: no masses palpable bilaterally. ABDOMEN: b [...] a lert, oriented. Assessment: * Assessment: 1. D eviated nasal septum - J34.2 (Primary) N otes :Gave him a prescription for Flonase because of the congestion. If this does not solve the problem he will have a referral to ENT. 2 . N rito congestion - R09.81 N otes :I gave him a prescription for Flonase. 3 . A dhesive capsulitis of left shoulder - M75.02 N otes :I have offered to refer him to orthopedic surgery for injections. He is going to consider it. He may need lysis of the adhesions. 4 . H earing loss, bilateral - H91.93 N otes :He has hearing aids but was not wearing them today. He will bring them next time he comes in to see if there are working properly. 5 . E dentulous - K08.109 N otes :He was wearing dentures today. He says he is able to chew and swallow without difficulty. 6 . M ixed hyperlipidemia - E78.2 N otes :His total cholesterol fasting is in range. Current therapy was continued without change. 7 . O besity (BMI 30-39.9) - E66.9 N otes :His body mass index is 37. He weighs 206 pounds.We have discussed weight reduction strategies today. We discussed his elevated blood pressure. He will lose weight at a rate of one half of a pound per week through a diet restricted in fat calories and sodium. 8 . C oronary artery disease involving [place] coronary artery of [place] heart without angina pectoris - I25.10 N otes :His old records do not include documentation of a cardiac catheterization but do say that he had disease in his circumflex artery there was noncritical. His current medications were continued including the aspirin. 9 . F ormer smoker - Z87.891 N otes :He stopped smoking in 2007. We made a plan to prevent relapse in times of stress and illness. 1 0. L umbar back pain - M54.50 N otes :The back pain persists but is slightly better. The gabapentin low-dose gives him mild relief. The gabapentin was increased. The dexamethasone has been discontinued. He will continue to use heat and rest. I have referred him to pain management. Plan: * Treatment: 2. O thers Continue [...] 1 capsule, Orally, Once a day; S tart Fluticasone Propionate Exhaler Suspension, 93 MCG/ACT, 2 sprays (1 spray in each nostril), Nasally, Twice a day, 30 days, 1 Applicator, Refills 11. * Procedure Codes: * Preventive Medicine: Counseling: [...] tobacco use and urged to quit. 0 02/13/2025 * Follow Up: 6 Weeks (Reason: OV) * Images: * Sign off status: Completed true * Provider: Neida Orlando MD Date: 0 02/13/2025 Generated for Sid moser/Sonal/Fabiitting on: 1 08/16/2024 09:43 AM EST History [...] perrla, anicte danielle, conjugate EARS: normal NOSE: Septum deviates to l eft NECK/THYROID: no jugular venous di stention, no carotid bruit, thyroid normal HEART: no clicks, gallops, murmurs, or rubs, regular rhythm, S1, S2 normal, no s3, or vascular bruits LUNGS: : diminished breath sounds throughout ABDOMEN: bowel sounds normal, no ascites, no [...]
--- OUTSIDE RECORDS SUMMARY | 2025-02-27 05:12 | XMS_ITS ---
Author Organization Bryant Orlando III, MD Address [address] [place] [address] Care Team Providers Care Director Of Assisted Living Name Role Phone Dr. Bryant Orlando III Primary Care Provider REASON FOR VISIT Clearance letter Social History Sex Assigned At : Social History Observation Description Sex Assigned At Male Encounters Encounter Location Date Provider Diagnosis Bryant Orlando III, MD [address] [place] [address] [place] [address] 02/27/2025 Bryant Orlando Plan Of Treatment Next Appt Details Provider Name:Bryant Orlando , 07/03/2025 02:45:00 PM, [address] [place] [address] [place], [address], Provider Name:Bryant Orlando , 01/21/2026 02:30:00 PM, [address] [place] [address] [place], [address], Progress Notes * AMIRA RomeoDOB:1955 (69 yo M)Acc No.[id number]:02/27/2025 Patient: Romeo MEJIA :1955 A ge:69 Y S ex:Male Address: [place] [address] * true * Date: Generated for Printi ng/Fakarmeng/eTransmitting on: 08/16/2024 09:42 AM EST
--- OUTSIDE RECORDS SUMMARY | 2025-03-27 09:30 | XMS_ITS ---
Author Organization Bryant Orlando III, MD Address [address] [place] [address] Care Team Providers Care Professional Development Director Name Role Phone Dr. Bryant Orlando III Primary Care Provider [phone] Allergies Allergen (clinical drug ingredient) Drug/Non Drug Allergy documented on EMR Reaction Allergy Type Onset Date Status No Known Drug Allergy Unknown Drug Allergy Active REASON FOR VISIT Hypertension, Hearing loss, Hyperlipidemia, Left shoulder adhesive capsulitis, Coronary artery disease, Low back pain, Exertional chest pain Medications Medication SIG (Take, Route, Frequency, Duration) [...] Orally Once a day for 90 days 03/27/2025 Active Gabapentin 300 MG 1 capsule Orally thr ee times a day 07/13/2024 Active Fluticasone Propionate 50 MCG/ACT 2 spray in each nostril Nasally Twice a day As needed Active Metoprolol Succinate ER 25 MG 1 tablet Orally Once a day 01/12/2024 Active Social History Tobacco Use: Social History Observation Description Date Details (start date - stop date) Former Smoker NA - NA Sex Assigned At : Social History Observation Description Sex Assigned At Male Tobacco Use/Smoking Question Answer Notes Patient is a former smoker Vital Signs Temperature 96.8 degrees Fahrenheit 03/27/20 25 Blood pressure systolic 134 mm Hg 03/27/20 25 Blood pressure diastolic 81 mm Hg 025 Heart Rate 78 /min 03/27/2025 Height 62.5 in 03/27/2025 Weight 207 lbs 03/27/2025 BMI 37.25 kg/m2 03/27/2025 Encounters Encounter Location Date Provider Diagnosis Bryant Orlando III, MD [address] [place] [address] [address] [place], [place] [id number] 03/27/2025 Bryant Orlando Coronary artery dise ase involving [place] coronary artery of [place] heart without angina pectoris I25.10 ; Former smoker Z87.891 ; Obesity (BMI 30-39.9) E66.9 ; Essential hypertension I10 ; Hearing loss, bilateral H91.93 ; Edentulous K08.109 and Mixed hyperlipidemia E78.2 Assessments Encounter Date Diagnosis (ICD Code) Assessment Notes Treat ment Notes Treatment Clinical Notes 03/27/2025 Coronary artery disease involving [place] coronary artery of [place] heart without angina pectoris (ICD-10 - I25.10) To evaluate the equivocal treadmill stress test and nuclear medicine perfusion test was recommended by cardiology. We have ordered this today. He will be seen afterwards to discuss results. 03/27/2025 Former smoker (ICD-1 0 - Z87.891) He stopped smoking in 2007. We made a plan to prevent relapse in times of stress and illness. 03/27/2025 Obesity (BMI 30-39.9 ) (ICD-10 - E66.9) His body mass index is 37. He weighs 206 pounds.We have discussed weight reduction strategies today. We discussed his elevated blood pressure. He will lose weight at a rate of one half of a pound per week through a diet restricted in fat calories and sodium. 03/27/2025 Essential hypertension (ICD-10 - I10) His blood pressure today is Within normal limits. We have discussed weight reduction and sodium restriction. A repeat visit in several weeks was arranged. His blood pressure will be treated if it remains at this level 03/27/2025 Hearing loss, bilateral (ICD-10 - H91.93) He has hearing aids but was not wearing them today. He will bring them next time he comes in to see if there are working properly. 03/27/2025 Edentulous (ICD-10 - K08.109) He was wearing dentures today. He says he is able to chew and swallow without difficulty. 03/27/2025 Mixed hyperlipidemia (ICD-10 - E78.2) His total cholesterol fasting is in range. Current therapy was continued without change. Plan Of Treatment Medication Medication Name Sig Start Date Stop Date Notes Aspirin 81 81 MG 1 tablet Orally Once a day 01/12/2024 Omeprazole 20 MG 1 capsule Orally Onc e a day 12/28/2024 dexAMETHasone 2 MG 1 tablet Orally twic e a day 06/23/2024 Lisinopril 2.5 MG 1 tablet Orally Once a day 01/12/2024 Lisinopril 2.5 MG 1 tablet Orally Once a day for 90 days 03/27/2025 Gabapentin 300 MG 1 capsule Orally thr ee times a day 07/13/2024 Fluticasone Propionate 50 MCG/ACT 2 spray in each nostril Nasally Twice a day Metoprolol Succinate ER 25 MG 1 tablet Orally Once a day 0 01/12/2024 Pending Test Test Name Order Date PROFILE, FASTING (COMPREHENSIVE METABOLI C) 03/27/2025 PSA, TOTAL 03/27/2025 CBC w DIFF 03/27/2025 NUC MYOCARDIAL PERF SPECT W MIBI 025 Lipid Panel 03/27/2025 Next Appt Details Follow Up: After Stress MIBI /and in June, Reason: ov Provider Name:Bryant Orlando , 07/03/2025 02:45:00 PM, [address] [place] [address] [address] SUTTON, [place], [phone], Provider Name:Bryant Orlando , 01/21/2026 02:30:00 PM, [address] [place] [address] [place], [phone], Progress Notes * Romeo ELDRIDGEDOB:1955 (69 yo M)Acc No.[id number]:03/27/2025 Progress Notes Patient: Romeo MEJIA Provider: Neida Orlando MD :1955 A ge:69 Y S ex:Male Date:03/27/2025 Address:[address] [place] [address] Nikolas roberts [id number] Subjective: * Chief Complaints: * H ypertensionHearing lossHyperlipidemiaLeft shoulder adhesive capsulitisCoronary artery diseaseLow back painExertional chest pain * HPI: C OVID-19 Screening: He returns to the office for control of his blood pressure and to review the results of a stress test that was done because of the recent onset of exertional chest pain. The stress test showed a good exertional effort and a normal blood pressure response and no ischemic EKG changes. However he did have the onset of premature atrial and ventricular contractions. The test was called equivocal and a nuclear medicine perfusion test was recommended. We have ordered that today. His blood pressure is currently stable and his medication was continued without change. Questions H ave you had any new onset fever, chills, cough, congestion, sore throat, shortness of breath, muscle aches? N o * ROS: G eneral/Constitutional: pain N o chest pain since his last visit. C hills d enies. F atigue a dmits. F ever d enies. E NT: Decreased hearing d enies. R espiratory: Cough d enies. C ardiovascular: Chest pain with exertion N one recently. D yspnea on exertion d enies. S [...] Surgical History: N [facility], preparation inadequate 2022No history * [...] [facility] 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 He has no gnosticism objection to blood transfusion. He has no children. He is not currently working. 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 {'Living Situation': 'Lives with [place]', 'Work Status': 'Retired'}. * Medications: T akingGabapentin [...] Release 1 capsule Orally Once a day Fluticasone Propionate 50 MCG/ACT Suspension 2 spray in each nostril Nasally Twice a day As neededMedication List reviewed and reconciled with the patientTaking [...] 1 capsule Orally Once a day Taking Fluticasone Propionate 50 MCG/ACT Suspension 2 spray in each nostril Nasally Twice a day As neededMedication List reviewed and reconciled with the patient * Allergies: N o Known Drug Allergyno[Allergies Verified] Objective: * Vitals: H t: 62.5, Wt:207, BMI:37.25, BP:134/81, HR:78, Temp:96.8, Ht-cm: 158.75, Wt-k.89. * Examination: G eneral [...] xtremities unremarkable, no clubbing, cyanosis or edema, Mild decreased range of motion lumbar spine. PERIPHERAL PULSES: n ormal. NEUROLOGIC: a lert and oriented, cranial nerves 2-12 grossly intact, deep tendon reflexes 2+ symmetrical, motor strength normal upper and lower extremities, sensory exam intact. PSYCH: a lert, oriented. Assessment: * Assessment: 1. C oronary artery disease involving [place] coronary artery of [place] heart without angina pectoris - I25.10 (Primary) N otes :To evaluate the equivocal treadmill stress test and nuclear medicine perfusion test was recommended by cardiology. We have ordered this today. He will be seen afterwards to discuss results. 2 . F ormer smoker - Z87.891 N otes :He stopped smoking in 2007. We made a plan to prevent relapse in times of stress and illness. 3 . O besity (BMI 30-39.9) - E66.9 N otes :His body mass index is 37. He weighs 206 pounds.We have discussed weight reduction strategies today. We discussed his elevated blood pressure. He will lose weight at a rate of one half of a pound per week through a diet restricted in fat calories and sodium. 4 . E ssential hypertension - I10 N otes :His blood pressure today is Within normal limits. We have discussed weight reduction and sodium restriction. A repeat visit in several weeks was arranged. His blood pressure will be treated if it remains at this level 5 . H earing loss, bilateral - H91.93 N otes :He has hearing aids but was not wearing them today. He will bring them next time he comes in to see if there are working properly. 6 . E dentulous - K08.109 N otes :He was wearing dentures today. He says he is able to chew and swallow without difficulty. 7 . M ixed hyperlipidemia - E78.2 N otes :His total cholesterol fasting is in range. Current therapy was continued without change. Plan: * Treatment: 2. M ixed hyperlipidemia L AB: PROFILE, FASTING (COMPREHENSIVE METABOLIC) L AB: PSA, TOTAL L AB: CBC w DIFF L AB: Lipid Panel 3. O thers Continue Fluticasone Propionate Suspension, 50 MCG/ACT, 2 spray in each nostril, Nasally, Twice a day As needed; C ontinue Gabapentin Capsule, 300 MG, 1 capsule, Orally, three times a day; C ontinue Aspirin 81 Tablet Delayed Release, 81 MG, 1 tablet, Orally, Once a day; C ontinue dexAMETHasone Tablet, 2 MG, 1 tablet, Orally, twice a day; C ontinue Omeprazole Capsule Delayed Release, 20 MG, 1 capsule, Orally, Once a day; R efill Metoprolol Succinate ER Tablet Extended Release 24 Hour, 25 MG, 1 tablet, Orally, Once a day; S tart Lisinopril Tablet, 2.5 MG, 1 tablet, Orally, Once a day, 90 days, 90 Tablet, Refills 3. * Procedure Codes: * Preventive [...] of tobacco use and urged to quit. 1 * Follow Up: A fter Stress MIBI/and in June (Reason: ov) * Images: * Sign off status: Completed true * Provider: Neida Orlando MD Date: 1 Generated for Printi ng/Faxing/eTransmitting on: 08/16/2024 09:42 AM EST History and Physical [...] unremark able, no clubbing, cyanosis or edema, Mild decreased range of motion lumbar spine LYMPH NODES: no enlarged lymph no bozena,spleen normal RECTAL EXAM: not examined PSYCH: alert, oriented ORAL CAVITY: normal, unremarkable
--- OUTSIDE RECORDS SUMMARY | 2025-06-15 09:43 | XMS_ITS | Patient Health Record ---
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 Bryant Orlando III Primary Care Provider Allergies Allergen (clinical drug ingredient) Drug/Non Drug Allergy documented on EMR Reaction Allergy Type Onset Date Status No Known Drug Allergy Unknown Drug Allergy Active Results Component Value Reference Range Notes XR hips NIA min 3V (Not yet reviewed by provider) Interpretation: Performing Lab: Notes/Report: [address] [address] XRay Report Signed Patient: Romeo Eldridge MR#: [id number] : 1955 Acct:[id number] Age/Sex: 69 / M ADM Date: 11/28/24 Loc: HO.CARD Attending Dr: Bryant Orlando MD Ordering Physician: Bryant Orlando MD Date of Service: 11/28/24 Procedure(s): XR hips NIA min 3V Accession Number(s): [id number] cc: Bryant Orlando MD CLINICAL HISTORY: bilat. hip pain 4 view, pelvis and bilateral hips Comparison: None Findings: Moderate osteoarthritis of the right hip. Hbctdbvd-pm-ewmksg osteoarthritis of the left hip. Mild deformities of the imaged femurs appear old/chronic including flattening of the left femoral head. Portions of the pelvis obscured without definite acute displaced fracture. Moderate stool burden in the byymw-qu-pbuj. IMPRESSION: Osteoarthritis of the both hips, left worse than right. This document has been electronically signed by: Jaime Ramirez MD on 11/28/2024 20:15:18 Dictated By: Jaime Ramirez MD Signed By: <Electronically signed by Jaime Ramirez MD in OV> 11/28/242014 DD/ 14 TD/TT: 11/28/242014 Exhibit Builder: [address] [address] XRay Report Signed Patient: Romeo Eldridge R#: [id number] : 1955 Acct:[id number] Age/Sex: 69 / M ADM Date: 11/28/24 Loc: HO.CARD Attending Dr: Bryant Orlando MD Ordering Physician: Bryant Orlando MD Date of Service: 11/28/24 Procedure(s): XR hip s NIA min 3V Accession Number(s): [id number] cc: Bryant Orlando MD CLINICAL HISTORY: bi lat. hip pain 4 view, pelvis and b ilateral hips Comparison: None Findings: Moderate osteoarthri tis of the right hip. Gqfnyydb-md-fwbcvf osteoarthritis of th e left hip. Mild deformities of the imaged femurs appear old/chronic i ncluding flattening of the left femoral head. Portions of the pelvis obscur ed without definite acute displaced fracture. Moderate stool burde n in the eqfwy-ux-plgh. IMPRESSION: Osteoarthritis of th e both hips, left worse than right. This document has be en electronically signed by: Jaime Ramirez MD on 11/28/2024 20:15:18 Dictated By: Jaime Ramirez MD Signed By: <Electron ically signed by Jaime Ramirez MD in OV> 11/28/242014 DD/ 14 TD/TT: 11/28/242014 Exhibit Builder: XR lumbar spine 2-3V (Not ye t reviewed by provider) Interpretation: Performing Lab: Notes/Report: [address] [address] XRay Report Signed Patient: Romeo Eldridge MR#: [id number] : 1955 Acct:[id number] Age/Sex: 69 / M ADM Date: 11/28/24 Loc: HO.CARD Attending Dr: Bryant Orlando MD Ordering Physician: Bryant Orlando MD Date of Service: 11/28/24 Procedure(s): XR lumbar spine 2-3V Accession Number(s): [id number] cc: Bryant Orlando MD CLINICAL HISTORY: lumbar [...] in OV> 11/28/242012 DD/ 11 TD/TT: 11/28/242011 Exhibit Builder: [place] [address] XRay Report Signed Patient: Romeo Eldridge#: [id number] : 1955 Acct:[id number] Age/Sex: 69 / M ADM Date: 11/28/24 Loc: HO.CARD Attending Dr: Bryant Orlando MD Ordering Physician: Bryant Orlando MD Date of Service: 11/28/24 Procedure(s): XR lum bar spine 2-3V Accession Number(s): [id number] cc: Bryant Orlando MD CLINICAL HISTORY: joyce [...] in OV> 11/28/242012 DD/ 11 TD/TT: 11/28/242011 Exhibit Builder: XR sacrum coccyx min 2V (Not yet reviewed by provider) Interpretation: Performing Lab: Notes/Report: [address] [address] XRay Report Signed Patient: Romeo Eldridge MR#: [id number] : 1955 Acct:[id number] Age/Sex: 69 / M ADM Date: 11/28/24 Loc: [place] Attending Dr: Bryant Orlando MD Ordering Physician: Bryant Orlando MD Date of Service: 11/28/24 Procedure(s): XR sacrum coccyx min 2V Accession Number(s): [id number] cc: Bryant Orlando MD CLINICAL HISTORY: PAIN [...] in OV> 11/28/242013 DD/ 12 TD/TT: 11/28/242012 Exhibit Builder: [address] [address] XRay Report Signed Patient: Romeo Eldridge R#: [id number] : 1955 Acct:[id number] Age/Sex: 69 / M ADM Date: 11/28/24 Loc: [place] Attending Dr: Bryant Orlando MD Ordering Physician: Bryant Orlando MD Date of Service: 11/28/24 Procedure(s): XR sac rum coccyx min 2V Accession Number(s): [id number] cc: Bryant Orlando MD CLINICAL HISTORY: PAIN [...] By: Jaime Ramirez MD Signed By: <La icallrosario signed by Jaime Ramirez MD in OV> 11/28/242013 DD/ 12 TD/TT: 11/28/242012 Exhibit Builder: MR lumbar spine wo con (Not yet reviewed by provider) Interpretation: Performing Lab: Notes/Report: [place] [address] Magnetic Resonance Report Signed Patient: Romeo Eldridge MR#: [id number] : 1955 Acct:[id number] Age/Sex: 69 / M ADM Date: 01/11/25 Loc: HO.MRI Attending Dr: Bryant Orlando MD Ordering Physician: Bryant Orlando MD Date of Service: 01/11/25 Procedure(s): MR lumbar spine wo con Accession Number(s): [id number] cc: Bryant Orlando MD EXAMINATION: MR LUMBAR [...] 01/11/2025 09:03 AM EDT Dictated By: Greg Tran MD Signed By: <Electronically signed by Greg Alcaraz MD in OV> 01/11/25 0903 DD/ 0755 TD/TT: 01/11/25 0825 Exhibit Builder: [address] [address] Magnetic Resonance Report Signed Patient: Romeo Eldridge#: [id number] : 1955 Acct:[id number] Age/Sex: 69 / M ADM Date: 01/11/25 Loc: HO.MRI Attending Dr: Bryant Orlando MD Ordering Physician: Bryant Orlando MD Date of Service: 01/11/25 Procedure(s): MR lum bar spine wo con Accession Number(s): [id number] cc: Bryant Orlando MD EXAMINATION: MR LUMBAR SPINE WITH OUT CONTRAST CLINICAL INFORMATION: Low back pain. COMPARISON: Correlated to x-ray dated November 28, 2024. TECHNIQUE: MRI of the lumbar sp ine was obtained using routine sequences without contrast. FINDINGS: Last rib-bearing ady tebra labeled T12. No bone marrow STIR signal abnormality. Multilevel marginal osteophyte formation, disc desiccation and decreased interverte bral disc height from T10-11 to L5-S1. Multilevel Schmorl nodes. 1 mm retrolisthesis L1-2. Conus medullaris end s at pedicle of L1 with normal signal. 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 Hyperintense T1 bone marrow signal involving the sacrum and posterior iliac bone, bilaterally. T12-L1: No disc herniation. No neuroforamina stenosis. L1-2: Broad-based disc bul ging. Facet joint hypertrophy. No central spinal canal stenosis. Bila teral neuroforamina narrowing. L2-3: Broad-based disc bul ging. No central spinal canal stenosis. Bilateral neuroforamina narrowing. L3-4: Broad-based disc bul ging. No central spinal canal stenosis. Bilateral neuroforamina narrowing. L4-5: Broad-based disc bul ging. Facet joint and ligamentum flavum hypertrophy. No cent ral spinal canal stenosis. Bilateral neuroforamina narrowing. L5-S1: Broad-based disc bul ging. Prominent epidural fat in a circumferential fashion reducing the AP diameter of the thecal sac. Facet joint hypertrophy. Bilater al neuroforamina stenosis, left greater than the right encroaching th e exiting nerve roots. No prevertebral comp artment hematoma, mass or fluid collection. M R/MR lumbar spine wo con IMPRESSION: Multilevel spondylos is resulting in bilateral neuroforamina narrowing/stenosis p ronounced at L5-S1 and to a lesser extent from L2-3 to L4-5 levels encro aching the exiting nerve roots. Epidural lipomatosis , L5-S1 resulting in central spinal canal stenosis. Grade 1 retrolisthes is on a degenerative basis, L1-2. Fatty bone marrow, sacrum. Electronically carlos d by: Greg Byrd MD 01/11/2025 09:03 AM EDT RP Dictated By: Greg Chu MD Signed By: <La gillette signed by Greg Alcaraz MD in OV> 01/11/25 0903 DD/ 0755 TD/TT: 01/11/25 0825 Exhibit Builder: NM liam perf SPECT rest & str (Not yet reviewed by provider) Interpretation: Performing Lab: Notes/Report: [address] [address] Nuclear Medicine Report Signed Patient: Romeo Eldridge MR#: [id number] : 1955 Acct:[id number] Age/Sex: 70 / M ADM Date: 04/18/25 Loc: [facility] Attending Dr: Bryant Orlando MD Ordering Physician: Bryant Orlando MD Date of Service: 04/18/25 Procedure(s): NM liam perf SPECT rest str Accession Number(s): [id number] cc: Bryant Orlando MD Reason for Exam: CAD // ISCHEMIC HEART DISEASE EXERCISE MYOCARDIAL PERFUSION STUDY INDICATION: Coronary artery disease TECHNIQUE: The patient was brought in for an exercise perfusion study on 2025. Patient performed exercise as per Steffen protocol and was injected 35 mCi of sestamibi once target heart rate was achieved. Images were obtained using the SPECT gamma camera interlaced with the gating device. Images were obtained in supine position. Resting perfusion study was performed on 04/19/2025. Patient was administered 35 mCi of sestamibi intravenously at rest. Images were then obtained in supine position. Total DLP 157 mGy-cm. Images were processed with the software and compared side to side in short axis, horizontal long axis and vertical long axis views. FINDINGS: Raw aquisition reviewed. Arms by the patient's side. The stress perfusion study showed no significant perfusion abnormality. Both uncorrected as well as CT attenuation corrected images were reviewed. The gated study shows normal LV systolic function with calculated LVEF of 52%, but visually higher. LV cavity is normal in size. The gated study shows normal wall thickening and contraction of segments. Resting study shows the no significant perfusion abnormality. Gating at rest reveals normal wall motion with ejection fraction at 68%. The findings are consistent with no clear reversible or fixed perfusion abnormality. NM/NM liam perf SPECT rest str IMPRESSION: 1. Myocardial perfusion imaging study shows normal myocardial perfusion. 2. Gated LVEF is 52% during stress but visually higher. 68% during rest. 3. Transient ischemic dilatation not present. EKG component of the test reported separately. Electronically signed by: Denis Dasilva MD 04/19/2025 04:15 PM EDT Dictated By: Denis Dasilva MD Signed By: <Electronically signed by Denis Dasilva MD in OV> 04/19/25 1615 DD/ 1023 TD/TT: 04/19/25 1445 Exhibit Builder: [place] [address] Nuclear Medicine Report Signed Patient: Romeo Eldridge MR#: [id number] : 1955 Acct:[id number] Age/Sex: 70 / M ADM Date: 04/18/25 Loc: [facility] Attending Dr: Bryant Orlando MD Ordering Physician: Bryant Orlando MD Date of Service: 04/18/25 Procedure(s): NM liam perf SPECT rest str Accession Number(s): [id number] cc: Bryant Orlando MD Reason for Exam: CAD // ISCHEMIC HEART DISEASE EXERCISE MYOCARDIAL PERFUSION STUDY INDICATION: Coronary artery disease TECHNIQUE: [facility] 20[facility]. Patient performed exercise as per Setffen protocol and was injected 35 mCi of s estamibi once target heart rate was achieved. Images were obtained using the SPECT gamma camera interlaced with the gating device. Image s were obtained in supine position. Resting perfusion st udy was performed on 04/19/2025. Patient was administered 35 mCi of sestamibi intravenously at rest. Images were then obtained in sup ine position. Total DLP 157 mGy-cm. Images were processe d with the software and compared side to side in short axis, horizont al long axis and vertical long axis views. FINDINGS: Raw aquisition revie wed. Arms by the patient's side. The stress perfusion study showed no significant perfusion abnormality. Both un corrected as well as CT attenuation corrected images were reviewed . The gated study shows normal LV systolic function with calculated LVEF of 52%, but visually higher. LV cavity is normal in size. The gated s tudy shows normal wall thickening and contraction of segments. Resting study shows the no significant perfusion abnormality. Gating at rest reveals normal wall motion with ejection fraction at 68%. The findings are con sistent with no clear reversible or fixed perfusion abnormality. N M/NM liam perf SPECT rest str IMPRESSION: 1. Myocardial perfus ion imaging study shows normal myocardial perfusion. 2. Gated LVEF is 52% during stress but visually higher. 68% during rest. 3. Transient ischemi c dilatation not present. EKG component of the test reported separately. Electronically carlos d by: Denis Dasilva MD 04/19/2025 04:15 PM EDT RP Workstatio n: [id number] Dictated By: Denis Dasilva MD Signed By: <Electron ically signed by Denis Dasilva MD in OV> 04/19/25 1615 DD/ 1023 TD/TT: 04/19/25 1445 Exhibit Builder: Reason For Referral Reason lumbar back pain e valuate and treatment Diagnosis 1 Lumbar back pain (M5 4.50) Referral Organization Bryant Orlando III, MD Referring Provider First Name Bryant Referring Provider Last Name Orlando Referring Provider Speciality Internal edicine Referred Provider [facility] Referred Provider Specialty Physical Med icine General Notes Autumn Bolden [facility] 12/29 01:36:49 PM >ref/demo/progress note /x rays faxed to [facility], Autumn Bolden [facility] 01/16/2025 01:52:31 PM >Copy of MRI faxed to [facility] Referral Priority Routine Referral Appointment Date 02/26/2025 Reason Consult and Treat Diagnosis 1 Ischemic heart disea se (I25.9) Diagnosis 2 Chest pain due to my ocardial ischemia, unspecified ischemic chest pain type (I25.9) Referral Organization Bryant Orlando III, MD Referring Provider First Name Bryant Referring Provider Last Name Orlando Referring Provider Speciality Internal edicine Referred Provider [facility], Cardiology Referred Provider Specialty Cardiology General Notes Gloria Gamez 06/2024 02:27:50 PM > Faxed referral to [facility] Referral Priority Routine Medications Medication SIG [...] Problem Status W/U Status Risk Notes Problem 4767658 Former smoker (Z87.891) Active confirmed He stopped smoking in 2007. We made a plan to prevent relapse in times of stress and illness. Problem 051877522 Mixed hyperlipidemia (E78.2) Active confirmed His total cholesterol fasting is in range. Current therapy was continued without change. Problem 839886656 Deviated nasal septum (J34.2) Active confirmed Gave him a prescription for Flonase because of the congestion. If this does not solve the problem he will have a referral to ENT. Problem 376541668765065 Adhesive capsulitis of left shoulder (M75.02) Active confirmed I have offered to refer him to orthopedic surgery for injections. He is going to consider it. He may need lysis of the adhesions. Problem 01471101 Nasal congestion (R09.81) Active confirmed I gave him a prescription for Flonase. Problem 386427078 Obesity (BMI 30-39.9) (E66.9) Active confirmed His body ma ss index is 37. He weighs 206 pounds.We have discussed weight reduction strategies today. We discussed his elevated blood pressure. He will lose weight at a rate of one half of a pound per week through a diet restricted in fat calories and sodium. Problem 21202419 Essential hypertension (I10) Active confirmed His blood pressure today is Within normal limits. We have discussed weight reduction and sodium restriction. A repeat visit in several weeks was arranged. His blood pressure will be treated if it remains at this level Problem Hearing loss (83635428) Hearing loss, bilateral (H91.93) Active confirmed He has hearing aids but was not wearing them today. He will bring them next time he comes in to see if there are working properly. Problem 00628298 Coronary artery disease involving mille lacs coronary artery of mil[place]acs heart without angina pectoris (I25.10) Active confirmed To evaluate the equivocal treadmill stress test and nuclear medicine perfusion test was recommended by cardiology. We have ordered this today. He will be seen afterwards to discuss results. Problem 05891235291486 History of hepatitis C (Z86.19) Active confirmed He was treated in the past with Epclusa. Lipid function tests have been ordered. 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 He says he is able to chew and swallow without difficulty. 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 Problem Low back pain (finding) (287490264) Lumbar back pain (M54.50) Active confirmed The back pain persists but is slightly better. The gabapentin low-dose gives him mild relief. The gabapentin was increased. The dexamethasone has been discontinued. He will continue to use heat and rest. I have referred him to pain management. Problem 20925137 Venous stasis (I87.8) Active confirmed His venous [...] Date Provider Diagnosis Bryant Orlando III, MD [address] [place] [address] [place] [phone] 01/17/2025 Bryant Orlando Ischemic heart disea se I25.9 ; Hearing loss, bilateral H91.93 ; Essential hypertension I10 ; Edentulous K08.109 ; Mixed hyperlipidemia E78.2 ; Obesity (BMI 30-39.9) E66.9 ; Coronary artery disease involving mil[place] coronary artery of mil[place] heart without angina pectoris I25.10 ; Venous stasis I87.8 ; Adhesive capsulitis of left shoulder M75.02 and Former smoker Z87.891 Bryant Orlando III, MD [address] [place] [address] [place] [id number] 07/13/2024 Bryant Orlando Lumbar back pain M54 .50 ; Former smoker Z87.891 ; Coronary artery disease involving mil[place] coronary artery of mil[place] heart without angina pectoris I25.10 ; History of hepatitis C Z86.19 ; Venous stasis I87.8 ; Adhesive capsulitis of left shoulder M75.02 ; Obesity (BMI 30-39.9) E66.9 ; Mixed hyperlipidemia E78.2 and Essential hypertension I10 Bryant Orlando III, MD [address] [place] [address] [place] [id number] 08/10/2024 Bryant Orlando Lumbar back pain M54 .50 ; Essential hypertension I10 ; Hearing loss, bilateral H91.93 ; Edentulous K08.109 ; Mixed hyperlipidemia E78.2 ; Obesity (BMI 30-39.9) E66.9 ; Adhesive capsulitis of left shoulder M75.02 ; Former smoker Z87.891 and Coronary artery disease involving mil[place] coronary artery of mil[place]acs heart without angina pectoris I25.10 Bryant Orlando III, MD [address] [place] [address] [place] [phone] 11/28/2024 Bryant Orlando Subconjunctival hemorrhage of left eye H11.32 ; Essential hypertension I10 ; Hearing loss, bilateral H91.93 ; Edentulous K08.109 ; Mixed hyperlipidemia E78.2 ; Obesity (BMI 30-39.9) E66.9 ; Venous stasis I87.8 ; Adhesive capsulitis of left shoulder M75.02 ; Coronary artery disease involving mil[place] coronary artery of mil[place] heart without angina pectoris I25.10 and Former smoker Z87.891 Bryant Orlando III, MD [address] [place] [address] [place] [id number] 12/28/2024 Bryant Orlando Lumbar back pain M54 .50 ; Coronary artery disease involving mil[place] coronary artery of mil[place] heart without angina pectoris I25.10 ; Adhesive capsulitis of left shoulder M75.02 ; Obesity (BMI 30-39.9) E66.9 ; Former smoker Z87.891 and Subconjunctival hemorrhage of left eye H11.32 Bryant Orlando III, MD [address] [place] [address] [place] [id number] 02/13/2025 Bryant Orlando Deviated nasal septu m J34.2 ; Nasal congestion R09.81 ; Adhesive capsulitis of left shoulder M75.02 ; Hearing loss, bilateral H91.93 ; Edentulous K08.109 ; Mixed hyperlipidemia E78.2 ; Obesity (BMI 30-39.9) E66.9 ; Coronary artery disease involving mil[place] lacs coronary artery of mil[place] lacs heart without angina pectoris I25.10 ; Former smoker Z87.891 and Lumbar back pain M54.50 Bryant Orlando III, MD [address] [place] [address] [place] [id number] 03/27/2025 Bryant Orlando Coronary artery dise ase involving mille lacs coronary artery of mille lacs heart without angina pectoris I25.10 ; Former smoker Z87.891 ; Obesity (BMI 30-39.9) E66.9 ; Essential hypertension I10 ; Hearing loss, bilateral H91.93 ; Edentulous K08.109 and Mixed hyperlipidemia E78.2 Bryant Orlando III, MD [address] [place] [address] [place] [id number] 09/01/2024 Bryant Orlando III, MD [address] [place] [address] [place] [id number] 02/27/2025 Bryant Orlando III, MD [address] [place] [address] [place] [id number] 06/23/2024 Bryant Orlando Lumbar back pain M54 .50 ; Former smoker Z87.891 ; Coronary artery disease involving mille lacs coronary artery of mil[place] heart without angina pectoris I25.10 ; Obesity [...] he was living in the [facility] but I do not have the records. They will be requested again. He has been having some chest pains lately of indeterminate cause. An echocardiogram showed some anteroseptal hypokinesis. I will order a stress test. His blood pressure needs better control and I will increase the metoprolol tartrate. I have referred him to cardiology for definitive diagnosis and treatment. 07/13/2024 Former smoker (ICD-1 0 - Z87.891) [...] would resolve. 12/28/2024 Coronary artery disease involving mille lacs coronary artery of mil[place] lacs heart without angina pectoris (ICD-10 - I25.10) [...] and illness. 03/27/2025 Coronary artery disease involving mil[place] lacs coronary artery of mil[place] heart without angina pectoris (ICD-10 - I25.10) [...] treated if it remains at this level 07/13/2024 Coronary artery disease involving mil[place]acs coronary artery of mil[place] heart without angina pectoris (ICD-10 - I25.10) [...] and sodium. 06/23/2024 Coronary artery disease involving mil[place] lacs coronary artery of mil[place] lacs heart without angina pectoris (ICD-10 - I25.10) His old records do not include documentation of a cardiac catheterization but do say that he had disease in his circumflex artery there was noncritical. His current medications were continued including the aspirin. 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 He says he is able to chew and swallow without difficulty. 07/13/2024 History of hepatitis C (ICD-10 - [...] Current therapy was continued without change. 07/13/2024 Venous stasis (ICD-1 0 - I87.8) [...] diet restricted in fat calories and sodium. 07/13/2024 Adhesive capsulitis of left shoulder (ICD-10 [...] this time. 01/17/2025 Coronary artery disease involving mille lacs coronary artery of mil[place] lacs heart without angina pectoris (ICD-10 - I25.10) His old records do not include documentation of a cardiac catheterization but do say that he had disease in his circumflex artery there was noncritical. His current medications were continued including the aspirin. 07/13/2024 Obesity (BMI 30-39.9 ) (ICD-10 - [...] do not require therapy at this time. 07/13/2024 Mixed hyperlipidemia (ICD-10 - E78.2) His [...] the adhesions. 02/13/2025 Coronary artery disease involving mille lacs coronary artery of mille lacs heart without angina pectoris (ICD-10 - I25.10) [...] may need lysis of the adhesions. 07/13/2024 Essential hypertension (ICD-10 - I10) His blood pressure today is in the normal range. We have discussed weight reduction and sodium restriction. A repeat visit in several weeks was arranged. His blood pressure will be treated if necessary. 08/10/2024 Coronary artery disease involving mil[place] lacs coronary artery of mil[place] lacs heart without angina pectoris (ICD-10 - I25.10) His old records do not include documentation of a cardiac catheterization but do say that he had disease in his circumflex artery there was noncritical. His current medications were continued including the aspirin. 11/28/2024 Coronary artery disease involving mille lacs coronary artery of mil[place] heart without angina pectoris (ICD-10 - I25.10) [...] 01/12/2024 MR lumbar spine wo con 01/11/2025 NM liam perf SPECT rest & str 2025 XR chest 4 views 01/12/2024 XR hips NIA min 3V 11/28/2024 XR lumbar spine 2-3V 11/28/2024 XR sacrum coccyx min 2V 11/28/2024 Next Appt Details Provider Name:Bryant [place] , 07/03/2025 02:45:00 PM, [address] [place] [address] [address], [place], [id number], Provider Name:Bryant [place] , 01/21/2026 02:30:00 PM, [address] [place] [address] [address], [place], [id number], Insurance Providers Payer Name Payer Address Payer Phone Subscriber Number Group Number Insured Name Patient Relationship to Insured Coverage Start Date Coverage End Date MEDICARE NGS [address] [place] [address] [id number] Romeo Eldridge Self - patient is the insured [place] [address] [place] [id number] [phone] [id number] ChenteRomeo Self - patient is the insured Medical [...] inade quate 2022 Negative upper endoscopy in [facility] 2022 Hospitalization History Reason Date(Month/Year) No history
[2025-06-15 10:19] VITALS: BMI 35.2
--- NOTE | 2025-06-15 10:19 | A.SPINEOV_ITS ---
Vital Signs 06/15/25 10:19 Height 5 ft 4 in Weight 205 lb BMI 35.2 Intake Visit Reasons: LBP Intake Note: Mr. Eldridge is here today c/o difficulty walking, pinched nerve going down the left leg. MRI done at [facility]. Pin Inserter Required: No Allergies No Known Allergies Allergy (Verified 06/15/25 10:23) Physical Exam Vital Signs: BMI result Body Mass Index 35.2 Assessment & Plan Assessment & Plan (1) Back pain: Code(s): M54.9 - Dorsalgia, unspecified Category: Medical Plan Dear Dr So, Thank you for referring Mr Eldridge to our office today. He is a very nice 70-year-old gentleman with a history of previous IV drug abuse, he has been clean for 25 years, has had a multiyear history of back pain bilateral lower extremity pain left greater than right. He underwent an L5-S1 injection at your office, had about 50% pain relief. He was referred today for evaluation for potential surgical considerations in light of an MRI showing potential stenosis in his lumbar spine. He has had no physical therapy, neurocritical care physician, acupuncture. He has never tried hsil-ene-wzyxdwg medications for this like M otrin or Tylenol. The pain is present at all times, it is aggravated with standing walking but is also there when he is sleeping. No tingling or numbness. No cauda equina symptoms. PMH: Hypertension, he has some kind of heart condition that he tells me he is getting worked up, history of hepatitis-C. He also reports he may have history of some kind of clotting disorder. He was not aware of any other major medical problems. Social hx: He does not smoke, drink or use any recreational drugs. He was an IV drug abuser for years and has been clean for 25 years, still participating in a program. Medications: Gabapentin, metoprolol, lisinopril and a baby aspirin Allergies: None Physical exam: Able to stand and walk down the hallways with steady gait but appeared uncomfortable, strength and reflexes are normal in the lower extremities. Imaging review: Lumbar MRI done at [facility] shows fgdo-fe-bdnojukl disc degeneration, no evidence of herniated disc no evidence of Modic endplate changes, spondylolisthesis etc.. He has cgwo-wq-lqcazpge bilateral L5 foraminal stenosis. On the axial cuts, I can see the foramen appear to be patent, with no evidence of compression of the nerves. No significant central canal stenosis. He has epidural lipomatosis. Impression: 70-year-old male presents for evaluation of chronic back pain bilateral lower extremity pain, left greater than right which responded to an L5-S1 injection giving him about 50% pain relief. His MRI shows stoz-oz-soaxcyux degeneration of his disc at L5-S1. There is whpb-fv-rsgnphdj foraminal stenosis, but on the axial cuts I can easily tracked the nerves as they exit out of the spine and I do not see any compression.. No significant central canal stenosis. Unfortunately I do not have an explanation for why he is having severe back pain and bilateral lower extremity pain. I do not think surgery would help him, in fact I think in light of his previous IV drug abuse history and the lack of severe findings on the MRI suggests that if he had any kind of surgery it would only make him worse. I recommended he follow up with your office. We talked about the fact that he could also try things like physi damaso therapy and fqrl-vhb-rafcqxy pain medications as well. Thank you for allowing us to care for your patient. The total time spent with this visit with this patient was 45 minutes reviewing history, physical exam, lumbar imaging review, and implementation of treatment plan or further diagnostic testing Wally Ramirez MD,PhD [facility] Coding Level of Care Code New Pt Level 4 (67302) Diagnoses Back pain M54.9
== END 2025-06-15 11:48 | disposition home or self-care (01) ==
PROVIDERS: PCP Internal Medicine Medical Oncology; Referring Provider Physical Medicine & Rehabilitation; Visit Provider Physician Assistant
DX: M54.9 Dorsalgia, unspecified (principal)
CPT/HCPCS: 99204

== ENCOUNTER → 2025-06-15 09:39 | Outpatient (BNVA) | payer MEDICARE, MEDICAID, SELFPAY | PROVIDERS: PCP Internal Medicine Medical Oncology; Referring Provider Physical Medicine & Rehabilitation; Visit Provider Physician Assistant | DX: M54.9 Dorsalgia, unspecified (principal); M51.370 Other intervertebral disc degeneration, lumbosacral region with discogenic back pain only; M79.604 Pain in right leg; M79.605 Pain in left leg | CPT/HCPCS: 99202 ==